=== PATIENT | female | born 1955 | race Caucasian/White ===

== ENCOUNTER 2017-05-24 19:51 | Emergency (ER) | payer SELFPAY ==
[2017-05-24 20:00] VITALS: TEMP 97.6; BMI 23.8
--- NOTE | 2017-05-24 20:00 | PDOC ---
Rapid Medical Evaluation Chief Complaint: Nausea/Vomiting Time Seen by Provider: 05/24/17 19:59 Medical Evaluation: Allergies Allergy/AdvReac Type Severity Reaction Status Date / Time No Known Allergies Allergy Verified 07/18/15 18:10 05/24/17 19:59 62yo Female patient presented to ED by family c/o headache, vomiting, chills that began today. Family report no other complaints at this time.
[2017-05-24] MEDS ORDERED: ACETAMINOPHEN 500 MG TABLET (FP) PO ONE (20:38)
[2017-05-24] MEDS ORDERED: SODIUM CHLORIDE 0.9% 500 ML INFUS.BAG IV ONE (20:38)
--- NOTE | 2017-05-24 20:41 | PDOC ---
History of Present Illness - General History Source: Patient Exam Limitations: No Limitations - History of Present Illness Initial Comments: 05/24/17 22:18 Patient is a 62 year old female with a significant past medical history of hypothyroidism who presents to the ED with complaints of headache that began this afternoon. Patient reports experiencing headache this afternoon suddenly while home showing no signs of subsiding. She reports experiencing intermittent fever and chills that began today at 5 pm. Patient reports not taken any medication for pain. As per patient's family, patient experienced 4 episodes of vomiting since this morning. Denies nausea, vomiting. Denies chest pain, SOB. Denies contact with sick individuals, out of state travels. Denies any other symptoms. Allergies: None Social history: No smoking. No alcohol. No illicit drugs. Surgical history: None PMD: None <Kerwin Rodriguez - Last Filed: 05/24/17 22:18> <Belkys Toussaint - Last Filed: 05/24/17 22:38> - General Chief Complaint: Nausea/Vomiting Stated Complaint: FEVER Time Seen by Provider: 05/24/17 19:59 Past History <Kerwin Rodriguez - Last Filed: 05/24/17 22:18> - Past Medical History CVA: Yes (H/O LACUNAR INFARCT) - Suicide/Smoking/Psychosocial Hx Smoking Status: No Smoking History: Never smoked Number of Cigarettes Smoked Daily: 0 Hx Alcohol Use: No Drug/Substance Use Hx: No <Belkys Toussaint - Last Filed: 05/24/17 22:38> - Past Medical History Allergies/Adverse Reactions: Allergies Allergy/AdvReac Type Severity Reaction Status Date / Time No Known Allergies Allergy Verified 05/24/17 22:00 Home Medications: Ambulatory Orders Levothyroxine [Synthroid -] 50 mcg PO DAILY@0700 #0 tablet 07/10/12 Pantoprazole Sodium [Protonix -] 40 mg PO DAILY #0 tablet.ec 07/10/12 Acetaminophen [Tylenol] 650 mg PO Q4H PRN 05/24/17 Ibuprofen [Motrin -] 600 mg PO TID PRN 05/24/17 Review of Systems - Review of Systems Able to Perform ROS?: Yes Comments:: 05/24/17 22:18 ADULT ROS GENERAL/CONSTITUTIONAL: +Headache. +Fever. +Chills. No weakness. HEAD, EYES, EARS, NOSE AND THROAT: No change in vision. No ear pain or discharge. No sore throat. CARDIOVASCULAR: No chest pain or shortness of breath. RESPIRATORY: No cough, wheezing, or hemoptysis. GASTROINTESTINAL: +Vomiting. No nausea, diarrhea or constipation. GENITOURINARY: No dysuria, frequency, or change in urination. MUSCULOSKELETAL: No joint or muscle swelling or pain. No neck or back pain. SKIN: No rash NEUROLOGIC: +Headache. No vertigo, loss of consciousness, or change in strength/sensation. ENDOCRINE: No increased thirst. No abnormal weight change. HEMATOLOGIC/LYMPHATIC: No anemia, easy bleeding, or history of blood clots. ALLERGIC/IMMUNOLOGIC: No hives or skin allergy. All Other Systems: Reviewed and Negative <Kerwin Rodriguez - Last Filed: 05/24/17 22:18> *Physical Exam - Vital Signs Last Vital Signs Temp Pulse Resp BP Pulse Ox 97.6 F 67 18 130/60 99 05/24/17 19:57 05/24/17 19:57 05/24/17 19:57 05/24/17 19:57 05/24/17 19:57 - Physical Exam Comments: 05/24/17 22:19 GENERAL: Awake, alert, and fully oriented, in no acute distress HEAD: No signs of trauma EYES: +injected eyes. PERRLA, EOMI, sclera anicteric, ENT: Auricles normal inspection, hearing grossly normal, nares patent, oropharynx clear without exudates. Moist mucosa NECK: Normal ROM, supple, no lymphadenopathy, JVD, or masses LUNGS: +Wheezing at top of right side. Breath sounds equal, clear to auscultation bilaterally. No wheezes, and no crackles HEART: Regular rate and rhythm, normal S1 and S2, no murmurs, rubs or gallops ABDOMEN: +Superpubic pain. +Right flank pain. Soft, nontender, normoactive bowel sounds. No guarding, no rebound. No masses EXTREMITIES: Normal range of motion, no edema. No clubbing or cyanosis. No cords, erythema, or tenderness NEUROLOGICAL: Cranial nerves II through XII grossly intact. Normal speech, normal gait SKIN: Warm, Dry, normal turgor, no rashes or lesions noted. <Kerwin Rodriguez - Last Filed: 05/24/17 22:18> - Vital Signs Last Vital Signs Temp Pulse Resp BP Pulse Ox 97.6 F 67 18 130/60 99 05/24/17 19:57 05/24/17 19:57 05/24/17 19:57 05/24/17 19:57 05/24/17 19:57 <Belkys Toussaint - Last Filed: 05/24/17 22:38> ED Treatment Course - LABORATORY CBC & Chemistry Diagram: 05/24/17 20:44 05/24/17 20:44 - ADDITIONAL ORDERS Additional order review: Laboratory Results 05/24/17 20:44 Sodium 139 Potassium 3.5 Chloride 103 Carbon Dioxide 30 Anion Gap 6 L BUN 11 Creatinine 0.7 Creat Clearance w eGFR > 60 Random Glucose 96 Calcium 8.5 Total Bilirubin 0.4 D AST 34 D ALT 21 D Alkaline Phosphatase 67 Total Protein 7.1 Albumin 3.6 TSH 1.43 05/24/17 20:44 RBC 4.05 MCV 88.5 MCHC 34.4 RDW 13.5 MPV 7.0 L Neutrophils % 38.9 L D Lymphocytes % 49.1 H D Monocytes % 5.7 Eosinophils % 5.1 H D Basophils % 1.2 - Medications Given in the ED: ED Medications Discontinued Medications Generic Name Dose Route Start Last Admin Trade Name Ana PRN Reason Stop Dose Admin Acetaminophen 1,000 mg 05/24/17 20:38 05/24/17 21:23 Tylenol - PO 05/24/17 20:39 Not Given ONCE ONE Acetaminophen 1,000 mg 05/24/17 21:05 05/24/17 21:07 Ofirmev Injection - IVPB 05/24/17 21:06 1,000 mg ONCE ONE Administration Sodium Chloride 1,000 ml 05/24/17 20:38 05/24/17 21:03 Normal Saline - IV 05/24/17 20:39 1,000 ml ONCE ONE Administration <Kerwin Rodriguez - Last Filed: 05/24/17 22:18> - LABORATORY CBC & Chemistry Diagram: 05/24/17 20:44 05/24/17 20:44 - RADIOLOGY Radiology Studies Ordered: Category Date Time Status CHEST PA & LAT [RAD] Stat Radiology 05/24/17 20:39 Ordered <Belkys Toussaint - Last Filed: 05/24/17 22:38> Medical Decision Making - Medical Decision Making 05/24/17 22:[address] and nausea and vomiting x 4. No fever, Pt still has LANE; she has no neuro findings. She has taken nothing for the pain at home. Here she was hydrated and given tylenol and she is feeling better. 05/24/17 22:36 Tommy is feeling better and she is ready for discharge. Her headache has completely resolved with tylenol. She states that her vomiting may have been due to something she ate in the home. She states taht all family members eat their own food and that it is possible that she was food poisoned from a left over that she ate. Pt has no fever and no chills and all her labs are normal. 05/24/17 22:37 EKG same pattern as old <Belkys Toussaint - Last Filed: 05/24/17 22:38> *DC/Admit/Observation/Transfer - Attestations Scribe Attestion: 05/24/17 22:19 Documentation prepared by Kerwin Rodriguez, acting as senior medical writer for Belkys Toussaint MD/DO. <Kerwin Rodriguez - Last Filed: 05/24/17 22:18> - Discharge Dispostion Admit: No <Belkys Toussaint - Last Filed: 05/24/17 22:38> Diagnosis at time of Disposition: Nausea and vomiting, Headache, Gastroenteritis - Discharge Dispostion Disposition: HOME Condition at time of disposition: Stable - Patient Instructions Printed Discharge Instructions: DI for Vomiting -- Adult, DI for Headache
[2017-05-24] MEDS ORDERED: ACETAMINOPHEN INJECTION 100 ML IVPB ONE (20:56)
[2017-05-24 21:01] LABS: BASO % 1.2 % (0-2.0); EOS % 5.1 % (0-4.5); HEMATOCRIT 35.8 % (32.4-45.2); HEMOGLOBIN 12.3 GM/dL (10.7-15.3); LYMPH % 49.1 % (8-40); MCH 30.4 pg (25.7-33.7); MCHC 34.4 g/dl (32.0-36.0); MEAN CELL VOLUME 88.5 fl (80-96); MONO % 5.7 % (3.8-10.2); NEUT % 38.9 % (42.8-82.8); PLATELET COUNT 202 K/MM3 (134-434); RBC 4.05 M/mm3 (3.60-5.2); RDW 13.5 % (11.6-15.6); WHITE BLOOD COUNT 4.2 K/mm3 (4.0-10.0)
[2017-05-24] MEDS ORDERED: ACETAMINOPHEN 1000 MG/100 ML VIAL (NON FORMULARY) IVPB ONE (21:05)
[2017-05-24 21:39] LABS: ALBUMIN 3.6 g/dl (3.4-5.0); ANION GAP 6 (8-16); BILIRUBIN,TOTAL 0.4 mg/dL (0.2-1.0); BLOOD UREA NITROGEN 11 mg/dL (7-18); CALCIUM 8.5 mg/dL (8.5-10.1); CHLORIDE 103 mmol/L (98-107); CO2 30 mmol/L (21-32); CREATININE 0.7 mg/dL (0.55-1.02); GLUCOSE,RANDOM 96 mg/dL (74-106); POTASSIUM 3.5 mmol/L (3.5-5.1); SGOT/AST 34 U/L (15-37); SGPT/ALT 21 U/L (12-78); SODIUM 139 mmol/L (136-145); TOT PROT 7.1 g/dl (6.4-8.2)
[2017-05-24 21:47] LABS: ALK PHOS 67 U/L (45-117)
[2017-05-24 22:43] VITALS: BP 149/67; PULSE 66
[2017-05-24 23:16] LABS: URINE APPEARANCE CLEAR; URINE BILIRUBIN NEGATIVE (NEGATIVE); URINE BLOOD 2+ (NEGATIVE); URINE COLOR LTYELLOW; URINE GLUCOSE (UA) NEGATIVE (NEGATIVE); URINE KETONE NEGATIVE (NEGATIVE); URINE NITRITE NEGATIVE (NEGATIVE); URINE PROTEIN NEGATIVE (NEGATIVE); URINE UROBILINOGEN NEGATIVE mg/dL (0.2-1.0)
[2017-05-24 23:46] LABS: URINE LEUK ESTERASE 2+ (NEGATIVE)
[2017-05-25 00:28] LABS: EPI CELLS FEW /HPF (FEW); URINE MUCUS RARE
--- NOTE | 2017-05-25 16:48 | EKG ---
Test Reason : Blood Pressure : / mmHG Vent. Rate : 064 BPM Atrial Rate : 064 BPM P-R Int : 198 ms QRS Dur : 100 ms QT Int : 494 ms P-R-T Axes : 064 074 007 degrees QTc Int : 509 ms NORMAL SINUS RHYTHM INCOMPLETE RIGHT BUNDLE BRANCH BLOCK PROLONGED QT NONSPECIFIC T WAVE ABNORMALITY ABNORMAL ECG WHEN COMPARED WITH ECG OF 05-JUL-2012 11:46, NO SIGNIFICANT CHANGE WAS FOUND Confirmed by ALLA ANDRADE MD ([id number]) on 05/25/2017 4:48:24 PM Referred By: Confirmed By:ALLA ANDRADE MD
== END 2017-05-24 22:43 | disposition home or self-care (01) ==
LOC: JER 19:51
PROC: 3E033NZ Introduction of Analgesics, Hypnotics, Sedatives into Peripheral Vein, Percutaneous Approach (ICD-10-PCS; principal; 2017-05-24)
DX: K52.9 Noninfective gastroenteritis and colitis, unspecified (principal)
CPT/HCPCS: 36415; 71046-TC; 80053; 81003; 81015; 84443; 85025; 87086; 93005; 93010; 99283-25

== ENCOUNTER 2017-10-08 16:22 | Inpatient (IN) | payer OTHER ==
[2017-10-08] MEDS ORDERED: SODIUM CHLORIDE 0.9% 1000 ML INFUS.BAG IV ONE (16:25)
[2017-10-08 16:30] VITALS: BMI 23.1
--- NOTE | 2017-10-08 16:34 | PDOC ---
Rapid Medical Evaluation Time Seen by Provider: 10/08/17 16:23 Medical Evaluation: Allergies Allergy/AdvReac Type Severity Reaction Status Date / Time No Known Allergies Allergy Verified 05/24/17 22:00 10/08/17 16:34 Pt. is a 62 y/o F who presents altered with her family. Son carried her in to the ED. Not answering questions. States that she may have the flu as she was out in the rain. Was normal yesterday. Exam: wheel chair bound, AAOx0. CTAB. Warm to the touch. BP 70/40 Orders: Sepsis order set Pt. to proceed to main ED for further evaluation
[2017-10-08] MEDS ORDERED: ACETAMINOPHEN INJECTION 100 ML IVPB ONE (16:40)
--- NOTE | 2017-10-08 16:40 | PDOC ---
Attending Attestation - Resident Resident Name: Mike Rangel - HPI HPI: 10/08/17 17:53 Pt presents to the ED after found febrile and minimally responsive by her son. As far as he can tell, she was in her usual state of health yesterday night. He did not see her at all today until shortly before admision. Patient has a history of thyroid problems--her son is unsure whether she has hyper or hypothyroidism. 10/08/17 17:54 - Physicial Exam PE: 10/08/17 17:58 Agree with resident exam. Patient is hypotensive, mildly hypoxic and lethargic. She will open her eyes and state her name in response to sternal rub. Abdomen is non distended and lungs are clear. - Critical Care Time Total Critical Care Time: 45 Critical Care Statement: The care of this patient involved high complexity decision making to prevent further life threatening deterioration of the patient 's condition and/or to evaluate & treat vital organ system(s) failure or risk of failure. - Medical Decision Making 10/08/17 17:59 Pt presents to the ED in septic shock. Large bore IV access and agressive hydration inititated immediately after arrival. FEbrile to 104.5--treated with IV tylenol and broad spectrum antibiotics. Shortly after
[2017-10-08] MEDS ORDERED: ACETAMINOPHEN 1000 MG/100 ML VIAL (NON FORMULARY) IVPB ONE (16:44)
[2017-10-08] MEDS ORDERED: SODIUM CHLORIDE 1,000 ML IV STA ×2 (16:44→17:39)
[2017-10-08 16:50] LABS: EOS % 0.8 % (0-4.5); HEMATOCRIT 42.4 % (32.4-45.2); HEMOGLOBIN 14.3 GM/dL (10.7-15.3); LYMPH % 28.5 % (8-40); MCH 30.1 pg (25.7-33.7); MCHC 33.7 g/dl (32.0-36.0); MEAN CELL VOLUME 89.2 fl (80-96); MEAN PLT VOLUME 7.5 fl (7.5-11.1); MONO % 6.8 % (3.8-10.2); NEUT % 62.9 % (42.8-82.8); PLATELET COUNT 266 K/MM3 (134-434); RBC 4.75 M/mm3 (3.60-5.2); RDW 13.6 % (11.6-15.6)
[2017-10-08] MEDS ORDERED: VANCOMYCIN 1,000 MG in DEXTROSE 5%-WATER - 250 ML IVPB ONE (16:51)
[2017-10-08] MEDS ORDERED: PIPERACILLIN/TAZOB 3.375 GM 3.375 GM in DEXTROSE 5%-WATER - 50 ML IVPB ONE (16:51)
[2017-10-08 16:53] LABS: VENOUS PC02 44.2 mmHg (38-52); VENOUS PH 7.35 (7.32-7.42); VENOUS PO2 34.9 mmHg (28-48)
--- NOTE | 2017-10-08 16:57 | PDOC ---
History of Present Illness - General Chief Complaint: SIRS, Suspected/Possible Stated Complaint: FEVER Time Seen by Provider: 10/08/17 16:23 - History of Present Illness Initial Comments: 10/08/17 16:56 Ms. Sanders is a 62 yo female w/ pmh of hypothyroidism who presents for evaluation of non-responsiveness and fever. Per son who is with her she was largely non-responsive when he went to check on her and extremely sweaty. She will not currently respond. Per son she was at baseline when she went to bed last night. Allergies: NKDA Past History - Past Medical History Allergies/Adverse Reactions: Allergies Allergy/AdvReac Type Severity Reaction Status Date / Time No Known Allergies Allergy Verified 10/08/17 17:24 Home Medications: Ambulatory Orders Levothyroxine [Synthroid -] 50 mcg PO DAILY@0700 #0 tablet 07/10/12 Pantoprazole Sodium [Protonix -] 40 mg PO DAILY #0 tablet.ec 07/10/12 Acetaminophen [Tylenol] 650 mg PO Q4H PRN 05/24/17 Ibuprofen [Motrin -] 600 mg PO TID PRN 05/24/17 CVA: Yes (H/O LACUNAR INFARCT) COPD: No Thyroid Disease: Yes - Suicide/Smoking/Psychosocial Hx Smoking Status: No Smoking History: Never smoked Number of Cigarettes Smoked Daily: 0 Information on smoking cessation initiated: No Hx Alcohol Use: No Drug/Substance Use Hx: No Substance Use Type: None Review of Systems - Review of Systems Comments:: 10/08/17 16:57 Unable to obtain ROS further. *Physical Exam - Vital Signs Last Vital Signs Temp Pulse Resp BP Pulse Ox 119 H 16 70/40 93 L 10/08/17 16:25 10/08/17 16:25 10/08/17 16:25 10/08/17 16:25 - Physical Exam Comments: 10/08/17 16:57 GENERAL: +Patient minimally responsive to stimulation. HEAD: No signs of trauma, normocephalic, atraumatic EYES: PERRLA, EOMI, sclera anicteric, conjunctiva clear ENT: Auricles normal inspection, hearing grossly normal, nares patent, oropharynx clear without exudates. Moist mucosa NECK: Normal ROM, supple, no lymphadenopathy, JVD, or masses LUNGS: No distress, speaks full sentences, clear to auscultation bilaterally HEART: Regular rate and rhythm, normal S1 and S2, no murmurs, rubs or gallops, peripheral pulses normal and equal bilaterally. ABDOMEN: Soft, nontender, normoactive bowel sounds. No guarding, no rebound. No masses EXTREMITIES: Normal inspection, Normal range of motion, no edema. No clubbing or cyanosis. NEUROLOGICAL: +Unable to assess SKIN: +Hot, diaphoretic, normal turgor, no rashes or lesions noted. ED Treatment Course - LABORATORY CBC & Chemistry Diagram: 10/08/17 16:40 10/08/17 16:40 Medical Decision Making - Medical Decision Making 10/08/17 18:48 Ms. Sanders is a 62 yo female w/ pmh as described who presents in acute sepsis. Sepsis protocol started. Central line placed for persistant hypotension after 4L NS. Patient signed out to Dr. Solano for further care. *DC/Admit/Observation/Transfer Diagnosis at time of Disposition: Septic shock - Discharge Dispostion Decision to Admit order: Yes - Referrals - Patient Instructions - Post Discharge Activity
[2017-10-08 17:01] LABS: URINE APPEARANCE SLCLOUDY; URINE BILIRUBIN NEGATIVE (<2.0 mg/dL); URINE BLOOD 3+ (NEGATIVE); URINE COLOR YELLOW; URINE GLUCOSE (UA) NEGATIVE (NEGATIVE); URINE KETONE NEGATIVE (NEGATIVE); URINE LEUK ESTERASE NEGATIVE (NEGATIVE); URINE NITRITE NEGATIVE (NEGATIVE); URINE UROBILINOGEN NEGATIVE mg/dL (0.2-1.0)
[2017-10-08] MEDS ORDERED: VANCOMYCIN 1 GRAM (PRE-DOCKED) 1,000 MG/250 ML BAG IVPB ONE (17:01)
[2017-10-08] MEDS ORDERED: PIPERACILLIN/TAZOB 3.375 GM 3.375 GM/50 ML BAG IVPB ONE (17:02)
[2017-10-08 17:04] LABS: INR 1.23 (0.82-1.09); PROTHROMBIN TIME (PATIENT) 13.9 SEC (9.7-13.0)
[2017-10-08 17:06] LABS: ACTIVATED PTT 48.3 SECONDS (26.9-34.4)
[2017-10-08 17:10] LABS: URINE PROTEIN 2+ (NEGATIVE)
[2017-10-08 17:12] LABS: URINE BACTERIA RARE /hpf (NONE SEEN)
[2017-10-08 17:14] LABS: ALBUMIN 3.9 g/dl (3.4-5.0); ALK PHOS 86 U/L (45-117); ANION GAP 10 (8-16); BILIRUBIN,TOTAL 0.8 mg/dL (0.2-1.0); BLOOD UREA NITROGEN 13 mg/dL (7-18); CALCIUM 8.6 mg/dL (8.5-10.1); CHLORIDE 100 mmol/L (98-107); CO2 24 mmol/L (21-32); CREATININE 1.3 mg/dL (0.55-1.02); GLUCOSE,RANDOM 120 mg/dL (74-106); SGPT/ALT 21 U/L (12-78); SODIUM 134 mmol/L (136-145)
[2017-10-08] MEDS ORDERED: DOPAMINE 400 MG/D5W - 400,000 MCG/250 ML INFUS.BAG IVPB ONE (17:29)
[2017-10-08] MEDS ORDERED: DOPAMINE 400 MG/D5W - 400,000 MCG/250 ML INFUS.BAG IVPB SCH (17:30)
[2017-10-08 17:41] LABS: POTASSIUM 3.9 mmol/L (3.5-5.1); SGOT/AST 53 U/L (15-37)
[2017-10-08] MEDS ORDERED: NOREPINEPHRINE BITARTRATE 4 MG/4 ML ML IV ONE (18:28)
[2017-10-08] MEDS: NOREPINEPHRINE BITARTRATE 4,000 MCG in DEXTROSE 5%-WATER - 496 ML IV SCH (18:55)
[2017-10-08] MEDS ORDERED: CEFTRIAXONE 2,000 MG in DEXTROSE 5%-WATER - 50 ML IVPB ONE (19:02)
[2017-10-08] MEDS ORDERED: NOREPINEPHRINE BITARTRATE 8,000 MCG in SODIUM CHLORIDE 0.45% 992 ML IV SCH (19:15)
--- NOTE | 2017-10-08 19:22 | PN ---
Teaching Attending Note Name of Resident: Jak Carvajal ATTENDING PHYSICIAN STATEMENT I saw and evaluated the patient. I reviewed the resident's note and discussed the case with the resident. I agree with the resident's findings and plan as documented. SUBJECTIVE: Ms. Sanders is a 62 year woman with pmh of hypothyroidism and lacunar infarct CVA who presents for evaluation of non-responsiveness and fever. As per son who is with her she was largely non-responsive when he went to check on her and extremely sweaty. In the ER she was hypotensive and febrile and was treated as a case of septic shock. She got IV NS, was started on levophed and sent to the ICU. There was a slight improvement in her mentation and her BP has improved. OBJECTIVE: Lethargic but arousable. Vital Signs Period Temp Pulse Resp BP Sys/Rios Pulse Ox Last 24 Hr 99.4 F-104.5 F 88-119 16-24 61-105/27-44 93-100 HEENT: No Jaundice, eye redness or discharge, PERRLA, EOMI. Normocephalic, atraumatic. External ears are normal and hearing is grossly intact. No nasal discharge. Neck: Supple, nontender. No palpable adenopathy or thyromegaly. No JVD Chest: Good effort. Clear to auscultation and percussion. Heart: Regular. No S3, rub or murmur Abdomen: Not distended, soft, nontender and no HSM. No rebound or guarding. Normoactive bowel sounds. Ext: Peripheral pulses intact. No leg edema. Skin: Warm and dry. No petechiae, rash or ecchymosis. Neuro: Lethargic but arousable. Unable to follow commands. Sensation grossly intact in all four extremities and DTR are symmetric. Home Medications Medication Instructions Recorded Levothyroxine [Synthroid -] 50 mcg PO DAILY@0700 #0 tablet 07/10/12 Pantoprazole Sodium [Protonix -] 40 mg PO DAILY #0 tablet.ec 07/10/12 Acetaminophen [Tylenol] 650 mg PO Q4H PRN 05/24/17 Ibuprofen [Motrin -] 600 mg PO TID PRN 05/24/17 Current Medications Generic Name Dose Route Start Last Admin Trade Name Freq PRN Reason Stop Dose Admin Dopamine HCl/Dextrose 400,000 mcg in 250 mls @ 8.165 mls/hr 10/08/17 17:30 19:05 Dopamine 400 Mg/D5w - IVPB 0 mcg/kg/min TITR RYAN 0 mls/hr Titration Protocol 5 MCG/KG/MIN Ceftriaxone Sodium 2,000 mg/ 50 mls @ 100 mls/hr 10/08/17 19:02 Dextrose IVPB 10/08/17 19:31 ONCE ONE Norepinephrine Bitartrate 4, 500 mls @ 37.5 mls/hr 10/08/17 19:15 10/08/17 18 :55 000 mcg/ Dextrose IV 8 mcg/min TITR RYAN 60 mls/hr Administration Protocol 5 MCG/MIN Abnormal Lab Results 10/08/17 10/08/17 10/08/17 16:40 16:40 16:40 PT with INR 13.90 H INR 1.23 H PTT (Actin FS) 48.3 H Sodium 134 L Creatinine 1.3 H Random Glucose 120 H Lactic Acid 2.4 H* AST 53 H Troponin I Urine Protein Urine Blood 10/08/17 10/08/17 16:40 16:48 PT with INR INR PTT (Actin FS) Sodium Creatinine Random Glucose Lactic Acid AST Troponin I 0.17 H Urine Protein 2+ H Urine Blood 3+ H Current Medications Generic Name Dose Route Start Last Admin Trade Name Eitanq PRN Reason Stop Dose Admin Acetaminophen 650 mg 10/08/17 20:15 Tylenol - PO Q4H PRN FEVER Chlorhexidine Gluconate 1 applic 10/08/17 22:00 Hibiclens For Decolonization - TP HS RYAN Heparin Sodium (Porcine) 5,000 unit 10/09/17 02:00 Heparin - SQ Q8H-IV RYAN Dopamine HCl/Dextrose 400,000 mcg in 250 mls @ 8.165 mls/hr 10/08/17 17:30 19:05 Dopamine 400 Mg/D5w - IVPB 0 mcg/kg/min TITR RYAN 0 mls/hr Titration Protocol 5 MCG/KG/MIN Norepinephrine Bitartrate 4, 500 mls @ 37.5 mls/hr 10/08/17 19:15 10/08/17 20 :15 000 mcg/ Dextrose IV 10 mcg/min TITR RYAN 75 mls/hr Titration Protocol 5 MCG/MIN Sodium Chloride 1,000 mls @ 125 mls/hr 10/08/17 20:00 Normal Saline - IV ASDIR RYAN Ceftriaxone Sodium 2 gm in 50 mls @ 100 mls/hr 10/08/17 20:15 Ceftriaxone 2 Gm-D5w Bag IVPB Q12H RYAN Protocol Vancomycin HCl 1,000 mg/ 250 mls @ 166.667 mls/hr 10/08/17 20:15 Dextrose IVPB Q12H RYAN Protocol Ampicillin Sodium 2 gm/ Sodium 100 mls @ 200 mls/hr 10/08/17 21:00 Chloride IVPB Q6H-IV RYAN Protocol Vancomycin HCl 1,000 mg/ 250 mls @ 166.667 mls/hr 10/09/17 05:00 Dextrose IVPB 10/09/17 06:29 ONCE ONE Levothyroxine Sodium 50 mcg 10/09/17 07:00 Synthroid - PO DAILY@0700 [facility] Mupirocin 1 applic 10/08/17 22:00 Bactroban Ointment (For Decolonization) - NS 10/13/17 21:59 BID [facility] Pantoprazole Sodium 40 mg 10/09/17 10:00 Protonix - PO DAILY [facility] ASSESSMENT AND PLAN: 1. Septic shock - Patient is being admitted as an inpatient. Will get head CT scan and spinal tap to rule out meningitis. There is no other obvious source of infection. Will continue IV NS for BP support and mild ADIS, monitor lactic acid and commence empiric treatment for meningitis with Vancomycin, Ampicilin and Rocephin pending results of sepsis work up. Check urine toxicology screen. There is also the possibility that she has heat stroke which will be addressed with continued IV fluid support and monitor CPK/Temp. Elevated troponin likely due to demand ischemia. No EKG changes suggestive of ACS. 2. DVT prophylaxis - Heparin 5000u sq tid 3. Advance directives - Full code
[2017-10-08] MEDS ORDERED: VANCOMYCIN 1,000 MG in DEXTROSE 5%-WATER - 250 ML IVPB SCH (20:15)
[2017-10-08] MEDS ORDERED: CEFTRIAXONE 2 GM-D5W BAG 2 GM/50 ML BAG IVPB SCH (20:15)
--- NOTE | 2017-10-08 20:21 | HP ---
CHIEF COMPLAINT: fever, unresponsive HISTORY OF PRESENT ILLNESS: 62 year old female with a hx of hypothyroidism brought to ED by son after he found her unresponsive and febrile in their room. Patient's son provides the history. States that his mother lives with him, and earlier today he found her in her room not responding to commands and that she felt very hot to touch. He reports that prior to this, his mother was at baseline walking, talking, eating without any complaints. He states that this has happened to her once before around 7-8 years ago when she was hospitalized for low blood pressure, fever, and was told that she had a "high sodium level". During that admission, he reports that his mother had a lumbar puncture but is not sure what the results were. States that she looked similar during that admission to how she looks today. He reports that she was not sick recently or been around sick contacts. She has not traveled anywhere and is not currently employed. Denies chest pain, shortness of breath, nausea, vomiting, diarrhea, or dysuria. Upon questioning, the patient herself responded to some commands and stated that she is tired and has pain all over her body. ER course was notable for: (1) BP 70/40 (2) T 104.5 (3) HR 119 (4) LA 2.4 --> 1.6 (5) Trop 0.17 Recent Travel: none PAST MEDICAL HISTORY: hypothyroidism PAST SURGICAL HISTORY: C section many years ago Social History: Smoking: never Alcohol: never Drugs: never Allergies No Known Allergies Allergy (Verified 10/08/17 17:24) HOME MEDICATIONS: Home Medications Medication Instructions Recorded Levothyroxine [Synthroid -] 50 mcg PO DAILY@0700 #0 tablet 07/10/12 Pantoprazole Sodium [Protonix -] 40 mg PO DAILY #0 tablet.ec 07/10/12 Acetaminophen [Tylenol] 650 mg PO Q4H PRN 05/24/17 Ibuprofen [Motrin -] 600 mg PO TID PRN 05/24/17 REVIEW OF SYSTEMS CONSTITUTIONAL: fever, chills, diaphoresis, generalized weakness, malaise Absent: loss of appetite, weight change HEENT: Absent: rhinorrhea, nasal congestion, throat pain, throat swelling, difficulty swallowing, mouth swelling, ear pain, eye pain, visual changes CARDIOVASCULAR: Absent: chest pain, syncope, palpitations, irregular heart rate, lightheadedness , peripheral edema RESPIRATORY: Absent: cough, shortness of breath, dyspnea with exertion, orthopnea, wheezing, stridor, hemoptysis GASTROINTESTINAL: Absent: abdominal pain, abdominal distension, nausea, vomiting, diarrhea, constipation, melena, hematochezia GENITOURINARY: Absent: dysuria, frequency, urgency, hesitancy, hematuria, flank pain, genital pain MUSCULOSKELETAL: Absent: myalgia, arthralgia, joint swelling, back pain, neck pain SKIN: Absent: rash, itching, pallor HEMATOLOGIC/IMMUNOLOGIC: Absent: easy bleeding, easy bruising, lymphadenopathy, frequent infections ENDOCRINE: Absent: unexplained weight gain, unexplained weight loss, heat intolerance, cold intolerance NEUROLOGIC: headache Absent:focal weakness or paresthesias, dizziness, unsteady gait, seizure, mental status changes, bladder or bowel incontinence PSYCHIATRIC: Absent: anxiety, depression, suicidal or homicidal ideation, hallucinations. PHYSICAL EXAMINATION Vital Signs - 24 hr 10/08/17 10/08/17 10/08/17 16:25 16:30 16:45 Temperature 104.5 F H Pulse Rate 119 H Pulse Rate [ 107 H Apical] Respiratory 16 22 Rate Blood Pressure 70/40 Blood Pressure 105/44 [Left Arm] O2 Sat by Pulse 93 L 100 Oximetry (%) 10/08/17 10/08/17 10/08/17 16:59 17:37 18:06 Temperature 104.5 F H Pulse Rate 91 H Pulse Rate [ 100 H Apical] Respiratory Rate Blood Pressure 61/30 Blood Pressure 66/27 [Left Arm] O2 Sat by Pulse 100 Oximetry (%) 10/08/17 10/08/17 10/08/17 18:07 18:17 18:39 Temperature Pulse Rate 100 H 98 H Pulse Rate [ 88 Apical] Respiratory 24 Rate Blood Pressure 66/27 79/31 Blood Pressure 91/33 [Left Arm] O2 Sat by Pulse 100 Oximetry (%) 10/08/17 10/08/17 10/08/17 18:55 18:57 19:05 Temperature 99.4 F Pulse Rate 88 88 Pulse Rate [ 88 Apical] Respiratory 22 Rate Blood Pressure 91/43 91/43 Blood Pressure 91/43 [Left Arm] O2 Sat by Pulse 100 Oximetry (%) GENERAL: A&Ox1, patient obtunded but is responding to simple commands EYES: PERRLA, EOMI ENT: Moist mucus membranes NECK: No JVD LUNGS: CTA, no wheezes HEART: tachycardic, no murmurs ABDOMEN: Soft, BS present, + suprapubic tenderness MUSCULOSKELETAL: No CVA Tenderness EXTREMITIES: 2+ pulses, no edema. NEUROLOGICAL: Patient has 5/5 motor strength Laboratory Results - last 24 hr 10/08/17 10/08/17 10/08/17 16:40 16:40 16:40 WBC 8.0 D RBC 4.75 Hgb 14.3 D Hct 42.4 D MCV 89.2 MCH 30.1 MCHC 33.7 RDW 13.6 Plt Count 266 D MPV 7.5 Neutrophils % 62.9 D Lymphocytes % 28.5 D Monocytes % 6.8 Eosinophils % 0.8 D Basophils % 1.0 Nucleated RBC % 0 PT with INR 13.90 H INR 1.23 H PTT (Actin FS) 48.3 H VBG pH 7.35 POC VBG pCO2 44.2 POC VBG pO2 34.9 Mixed VBG HCO3 24.0 Sodium Potassium Chloride Carbon Dioxide Anion Gap BUN Creatinine Creat Clearance w eGFR Random Glucose Lactic Acid Calcium Total Bilirubin AST ALT Alkaline Phosphatase Troponin I Total Protein Albumin TSH Urine Color Urine Appearance Urine pH Ur Specific [place] Urine Protein Urine Glucose (UA) Urine Ketones Urine Blood Urine Nitrite Urine Bilirubin Urine Urobilinogen Ur Leukocyte Esterase Urine WBC (Auto) Urine RBC (Auto) Urine Bacteria 10/08/17 10/08/17 10/08/17 16:40 16:40 16:40 WBC RBC Hgb Hct MCV MCH MCHC RDW Plt Count MPV Neutrophils % Lymphocytes % Monocytes % Eosinophils % Basophils % Nucleated RBC % PT with INR INR PTT (Actin FS) VBG pH POC VBG pCO2 POC VBG pO2 Mixed VBG HCO3 Sodium 134 L Potassium 3.9 Chloride 100 Carbon Dioxide 24 Anion Gap 10 BUN 13 Creatinine 1.3 H Creat Clearance w eGFR 41.24 Random Glucose 120 H Lactic Acid 2.4 H* Calcium 8.6 Total Bilirubin 0.8 D AST 53 H ALT 21 Alkaline Phosphatase 86 Troponin I 0.17 H Total Protein 8.0 Albumin 3.9 TSH Urine Color Urine Appearance Urine pH Ur Specific [place] Urine Protein Urine Glucose (UA) Urine Ketones Urine Blood Urine Nitrite Urine Bilirubin Urine Urobilinogen Ur Leukocyte Esterase Urine WBC (Auto) Urine RBC (Auto) Urine Bacteria 10/08/17 10/08/1710/08/18 16:48 16:59 18:30 WBC RBC Hgb Hct MCV MCH MCHC RDW Plt Count MPV Neutrophils % Lymphocytes % Monocytes % Eosinophils % Basophils % Nucleated RBC % PT with INR INR PTT (Actin FS) VBG pH POC VBG pCO2 POC VBG pO2 Mixed VBG HCO3 Sodium Potassium Chloride Carbon Dioxide Anion Gap BUN Creatinine Creat Clearance w eGFR Random Glucose Lactic Acid 1.6 Calcium Total Bilirubin AST ALT Alkaline Phosphatase Troponin I Total Protein Albumin TSH 1.48 Urine Color Yellow Urine Appearance Slcloudy Urine pH 5.0 Ur Specific [place] 1.012 Urine Protein 2+ H Urine Glucose (UA) Negative Urine Ketones Negative Urine Blood 3+ H Urine Nitrite Negative Urine Bilirubin Negative Urine Urobilinogen Negative Ur Leukocyte Esterase Negative Urine WBC (Auto) 1 Urine RBC (Auto) 44 Urine Bacteria Rare ASSESSMENT/PLAN: 62 year old female with a hx of hypothyroidism is admitted to the hospital for septic shock #Septic Shock: unclear etiology, could be UTI even though UA negative, mentally patient is improving compared to when she first came in -f/u blood cultures -f/u urine cultures -UA negative -ICU admission -ID consult Dr. Bobo appreciated -Levophed at 10mcgs, titrate to MAP > 65 --> improved to 123/94 (MAP 104) and pressures were stopped -Vancomycin 1gm Q12 -Rocephin 2gm Q12 -Ampicillin 2gms Q6h -IV NS @ 125cc/hr -CT head no contrast -CT abdomen pelvis no contrast to r/o abdominal collection/abscess/source of infection -will likely need lumbar puncture and cell analysis/culture -LA elevated on admission 2.4 --> repeat 1.6 -accurate I's and O's -NPO for now -O2 2L #Troponinemia: troponin on admission was 1.23 -likely demand ischemia due to hypotension -repeat troponin at 10pm #Hypothyroidism #FEN IV NS @ 125cc/hr Electrolytes WNL NPO for now #Prophylaxis -heparin prophylaxis #Disposition -admit ICU -initially patient wanted DNR, but he stated he would discuss with family before signing form Visit type - Emergency Visit Emergency Visit: Yes ED Registration Date: 10/08/17 Care time: The patient presented to the Emergency Department on the above date and was hospitalized for further evaluation of their emergent condition. - New Patient This patient is new to me today: Yes Date on this admission: 10/08/17 - Critical Care Critical Care patient: Yes Total Critical Care Time (in minutes): 35 Critical Care Statement: The care of this patient involved high complexity decision making to prevent further life threatening deterioration of the patient 's condition and/or to evaluate & treat vital organ system(s) failure or risk of failure. Hospitalist Screening - Colonoscopy Questionnaire Colonoscopy Questionnaire: Colonoscopy Questionnaire - Patient: 50 - 75 years old and never had a screening colonoscopy: Unknown History of colon or rectal polyps, or CA: Unknown History of IBD, Crohn's disease or UC: Unknown History of abdominal radiation therapy as a child: Unknown - Relative: 1 with colon or rectal CA, or polyps at age 60 or younger: Unknown Colon or rectal CA diagnosed at age 45 or younger: Unknown Multiple relatives with colon or rectal CA: Unknown - Outcome: Screening Result: Negative Screen
[2017-10-08] MEDS: ACETAMINOPHEN 325 MG TABLET (FP) PO PRN (21:56)
--- NOTE | 2017-10-08 22:01 | CONSULT ---
Consultation: REQUESTING PROVIDER:Mingo Curtis ED res CONSULT REQUEST: We have been asked to medically evaluate this patient for septic shock. HISTORY OF PRESENT ILLNESS: 62 year old [place]ican speaking female with pmhx of hypothyroidism and lacunar stroke presented to the ED after her son found her unresponsive around 3 pm today and warm to touch. pt was last seen in her base line status last night around 11 pm when she was cooking. history was taking from son . son denies any recent cold, cough , sore throat or sick contact. no N/V/D/C/ chest pain , abdominal pain or urinary symptoms was reported. son denies any head trauma or fall. pt is not taking any medication and was not seen by doctor for the last 7 years. she lives with her son. PMHx: Hypothyroidism , lacunar stroke PSHx: long time ago FHx: non contributory(appendicities in her mom ) Shx: denies smoking, alcohol or illicit drug use Allergies: NKDA REVIEW OF SYSTEMS: CONSTITUTIONAL: Absent: fever, chills, diaphoresis, generalized weakness, malaise, loss of appetite, weight change HEENT: Absent: rhinorrhea, nasal congestion, throat pain, throat swelling, difficulty swallowing, mouth swelling, ear pain, eye pain, visual changes CARDIOVASCULAR: Absent: chest pain, syncope, palpitations, irregular heart rate, lightheadedness , peripheral edema RESPIRATORY: Absent: cough, shortness of breath, dyspnea with exertion, orthopnea, wheezing, stridor, hemoptysis GASTROINTESTINAL: Absent: abdominal pain, abdominal distension, nausea, vomiting, diarrhea, constipation, melena, hematochezia GENITOURINARY: Absent: dysuria, frequency, urgency, hesitancy, hematuria, flank pain, genital pain MUSCULOSKELETAL: Absent: myalgia, arthralgia, joint swelling, back pain, neck pain SKIN: Absent: rash, itching, pallor HEMATOLOGIC/IMMUNOLOGIC: Absent: easy bleeding, easy bruising, lymphadenopathy, frequent infections ENDOCRINE: Absent: unexplained weight gain, unexplained weight loss, heat intolerance, cold intolerance NEUROLOGIC: Absent: headache, focal weakness or paresthesias, dizziness, unsteady gait, seizure, mental status changes, bladder or bowel incontinence PSYCHIATRIC: Absent: anxiety, depression, suicidal or homicidal ideation, hallucinations. PHYSICAL EXAMINATION Vital Signs - 24 hr 10/08/17 10/08/17 10/08/17 16:25 16:30 16:45 Temperature 104.5 F H Pulse Rate 119 H Pulse Rate [ 107 H Apical] Respiratory 16 22 Rate Blood Pressure 70/40 Blood Pressure 105/44 [Left Arm] O2 Sat by Pulse 93 L 100 Oximetry (%) 10/08/17 10/08/17 10/08/17 16:59 17:37 18:06 Temperature 104.5 F H Pulse Rate 91 H Pulse Rate [ 100 H Apical] Respiratory Rate Blood Pressure 61/30 Blood Pressure 66/27 [Left Arm] O2 Sat by Pulse 100 Oximetry (%) 10/08/17 10/08/17 10/08/17 18:07 18:17 18:39 Temperature Pulse Rate 100 H 98 H Pulse Rate [ 88 Apical] Respiratory 24 Rate Blood Pressure 66/27 79/31 Blood Pressure 91/33 [Left Arm] O2 Sat by Pulse 100 Oximetry (%) 10/08/17 10/08/17 10/08/17 18:55 18:57 19:05 Temperature 99.4 F Pulse Rate 88 88 Pulse Rate [ 88 Apical] Respiratory 22 Rate Blood Pressure 91/43 91/43 Blood Pressure 91/43 [Left Arm] O2 Sat by Pulse 100 Oximetry (%) 10/08/17 20:00 Temperature 98.8 F Pulse Rate Pulse Rate [ 95 H Apical] Respiratory 16 Rate Blood Pressure Blood Pressure 80/34 [Left Arm] O2 Sat by Pulse 97 Oximetry (%) GENERAL: AAOx1 , in NAD , sleepy with generalized fatigue , follow commands HEAD:NC/AT EYES: SIM, EOMI , sclera anicteric, conjunctiva clear. EARS, NOSE, THROAT: Ears normal, nares patent, oropharynx clear without exudates. dry MM NECK: Normal range of motion, supple without lymphadenopathy, JVD, LUNGS: Breath sounds equal, clear to auscultation bilaterally. No wheezes, and no crackles. No accessory muscle use. HEART: Regular rate and rhythm, normal S1 and S2 without murmur, rub or gallop. ABDOMEN: Soft, nontender, not distended, normoactive bowel sounds, no guarding, no rebound, no masses. MUSCULOSKELETAL: No CVA tenderness. UPPER EXTREMITIES: 2+ pulses, warm, well-perfused. No cyanosis. No clubbing. Cap refill <2 seconds. No peripheral edema. LOWER EXTREMITIES: 2+ pulses, warm, well-perfused. No calf tenderness. No peripheral edema. NEUROLOGICAL: Cranial nerves II-XII intact. Normal speech. +5/5 strenth upper and lower ext proximal and distal PSYCHIATRIC: Cooperative. lethargic SKIN: Warm, dry, normal turgor, Laboratory Results - last 24 hr 10/08/17 10/08/17 10/08/17 16:40 16:40 16:40 WBC 8.0 D RBC 4.75 Hgb 14.3 D Hct 42.4 D MCV 89.2 MCH 30.1 MCHC 33.7 RDW 13.6 Plt Count 266 D MPV 7.5 Neutrophils % 62.9 D Lymphocytes % 28.5 D Monocytes % 6.8 Eosinophils % 0.8 D Basophils % 1.0 Nucleated RBC % 0 PT with INR 13.90 H INR 1.23 H PTT (Actin FS) 48.3 H VBG pH 7.35 POC VBG pCO2 44.2 POC VBG pO2 34.9 Mixed VBG HCO3 24.0 Sodium Potassium Chloride Carbon Dioxide Anion Gap BUN Creatinine Creat Clearance w eGFR Random Glucose Lactic Acid Calcium Total Bilirubin AST ALT Alkaline Phosphatase Troponin I Total Protein Albumin TSH Urine Color Urine Appearance Urine pH Ur Specific [place] Urine Protein Urine Glucose (UA) Urine Ketones Urine Blood Urine Nitrite Urine Bilirubin Urine Urobilinogen Ur Leukocyte Esterase Urine WBC (Auto) Urine RBC (Auto) Urine Bacteria 10/08/17 10/08/17 10/08/17 16:40 16:40 16:40 WBC RBC Hgb Hct MCV MCH MCHC RDW Plt Count MPV Neutrophils % Lymphocytes % Monocytes % Eosinophils % Basophils % Nucleated RBC % PT with INR INR PTT (Actin FS) VBG pH POC VBG pCO2 POC VBG pO2 Mixed VBG HCO3 Sodium 134 L Potassium 3.9 Chloride 100 Carbon Dioxide 24 Anion Gap 10 BUN 13 Creatinine 1.3 H Creat Clearance w eGFR 41.24 Random Glucose 120 H Lactic Acid 2.4 H* Calcium 8.6 Total Bilirubin 0.8 D AST 53 H ALT 21 Alkaline Phosphatase 86 Troponin I 0.17 H Total Protein 8.0 Albumin 3.9 TSH Urine Color Urine Appearance Urine pH Ur Specific [place] Urine Protein Urine Glucose (UA) Urine Ketones Urine Blood Urine Nitrite Urine Bilirubin Urine Urobilinogen Ur Leukocyte Esterase Urine WBC (Auto) Urine RBC (Auto) Urine Bacteria 10/08/17 10/08/1718 16:48 16:59 18:30 WBC RBC Hgb Hct MCV MCH MCHC RDW Plt Count MPV Neutrophils % Lymphocytes % Monocytes % Eosinophils % Basophils % Nucleated RBC % PT with INR INR PTT (Actin FS) VBG pH POC VBG pCO2 POC VBG pO2 Mixed VBG HCO3 Sodium Potassium Chloride Carbon Dioxide Anion Gap BUN Creatinine Creat Clearance w eGFR Random Glucose Lactic Acid 1.6 Calcium Total Bilirubin AST ALT Alkaline Phosphatase Troponin I Total Protein Albumin TSH 1.48 Urine Color Yellow Urine Appearance Slcloudy Urine pH 5.0 Ur Specific [place] 1.012 Urine Protein 2+ H Urine Glucose (UA) Negative Urine Ketones Negative Urine Blood 3+ H Urine Nitrite Negative Urine Bilirubin Negative Urine Urobilinogen Negative Ur Leukocyte Esterase Negative Urine WBC (Auto) 1 Urine RBC (Auto) 44 Urine Bacteria Rare Active Medications Generic Name Dose Route Start Last Admin Trade Name Freq PRN Reason Stop Dose Admin Acetaminophen 650 mg 10/08/17 20:15 Tylenol - PO Q4H PRN FEVER Chlorhexidine Gluconate 1 applic 10/08/17 22:00 Hibiclens For Decolonization - TP HS RYAN Heparin Sodium (Porcine) 5,000 unit 10/09/17 02:00 Heparin - SQ Q8H-IV RYAN Dopamine HCl/Dextrose 400,000 mcg in 250 mls @ 8.165 mls/hr 10/08/17 17:30 19:05 Dopamine 400 Mg/D5w - IVPB 0 mcg/kg/min TITR RYAN 0 mls/hr Titration Protocol 5 MCG/KG/MIN Norepinephrine Bitartrate 4, 500 mls @ 37.5 mls/hr 10/08/17 19:15 10/08/17 20 :15 000 mcg/ Dextrose IV 10 mcg/min TITR RYAN 75 mls/hr Titration Protocol 5 MCG/MIN Sodium Chloride 1,000 mls @ 125 mls/hr 10/08/17 20:00 Normal Saline - IV ASDIR RYAN Ceftriaxone Sodium 2 gm in 50 mls @ 100 mls/hr 10/08/17 20:15 Ceftriaxone 2 Gm-D5w Bag IVPB Q12H RYAN Protocol Vancomycin HCl 1,000 mg/ 250 mls @ 166.667 mls/hr 10/08/17 20:15 Dextrose IVPB Q12H RYAN Protocol Ampicillin Sodium 2 gm/ Sodium 100 mls @ 200 mls/hr 10/08/17 21:00 Chloride IVPB Q6H-IV RYAN Protocol Vancomycin HCl 1,000 mg/ 250 mls @ 166.667 mls/hr 10/09/17 05:00 Dextrose IVPB 10/09/17 06:29 ONCE ONE Levothyroxine Sodium 50 mcg 10/09/17 07:00 Synthroid - PO DAILY@0700 [facility] Mupirocin 1 applic 10/08/17 22:00 Bactroban Ointment (For Decolonization) - NS 10/13/17 21:59 BID [facility] Pantoprazole Sodium 40 mg 10/09/17 10:00 Protonix - PO DAILY RYAN CBC, BMP 10/08/17 16:40 10/08/17 16:40 ASSESSMENT/PLAN: 62 year old female with pmhx of hypothyroidism and lacunar stroke presented to ED by her son who found her unresponsive,in Ed pt found to have septic shock and admitted to ICU for further evaluation. # Septic shock unknown etilogy , * pt was hypotensive on admission with LA 2.4 and fever 104 * IV fluids in ED bolus and maintenance * muñoz cx blood urine * cxr, CT abdomen pelvic and Ct head without contrast * Levophed at 10mcgs, titrate to MAP > 65 --> improved to 123/94 (MAP 104) and pressures were held due to improve BP and stable .....pt BP has droped again and will resume fluids @ 125 CC and pressers * Vancomycin 1gm Q12, Rocephin 2gm Q12, Ampicillin 2gms Q6h * LP to R/O meningitis (no nuchal rigidity on physical exam , pt mental status has improved with IV fluids ) * admit to ICU * LA 2.4 ....1.6 after fluids # AMS likely 2/2 dehydration vs low oral intake ,vs heat stroke , vs stroke * was unresponsive on admission improve with IV fluids * continue NS @ 125 CC/hr * repeat BMP in AM * f/u head ct w/o contrast * urine toxicology screen * cortisol AM # troponinemia likely demand ischemia * trop 0.17 on admission likely due to ADIS , trend * EKG no St, T wave changes * pt denies any chest pain or discomfort * echo # ADIS * likely pre renal azotemia due to volume depletion , CR 1.3 * continue IV fluids * Monitor I&O * repeat BUN /Cr in AM * # H/O Hypothyroisdm * pt is not taking any meds , no PCP for last 7 years * denies nay heat or cold intolerance * TSH and Free T4 * continue previous home dose * # FEN * F: Continue on 125 CC/ hr NS (NS bolus was given in ED ) * E: mild hyponatremia 134 repeat in AM * N: NPO for now # Proph * DVTS: SCDS both legs , hep 5000 DQ TID * GI: no need for now # Dispo * Admit to ICU * total critical time 45 min Dispo: We will continue to follow the patient. Thank you for this consultative opportunity. Visit type - Emergency Visit Emergency Visit: Yes ED Registration Date: 10/08/17 Care time: The patient presented to the Emergency Department on the above date and was hospitalized for further evaluation of their emergent condition. - New Patient This patient is new to me today: Yes Date on this admission: 10/08/17 - Critical Care Critical Care patient: Yes Total Critical Care Time (in minutes): 45 Critical Care Statement: The care of this patient involved high complexity decision making to prevent further life threatening deterioration of the patient 's condition and/or to evaluate & treat vital organ system(s) failure or risk of failure.
[2017-10-08] MEDS ORDERED: DEXTROSE 5%-WATER 100 ML IVPB ONE (22:41)
[2017-10-08] MEDS ORDERED: CEFTRIAXONE 2 GM in DEXTROSE 5%-WATER 100 ML IVPB SCH (22:45)
[2017-10-08] MEDS: SODIUM CHLORIDE 1,000 ML IV SCH (22:48)
[2017-10-08] MEDS: AMPICILLIN - 2 GM in SODIUM CHLORIDE 100 ML IVPB SCH (22:48)
[2017-10-08] MEDS: CHLORHEXIDINE GLUCONATE 4% CLEANSER FOR DECOLONIZATION TP SCH (22:49)
[2017-10-08] MEDS: MUPIROCIN 2% TOPICAL OINTMENT FOR DECOLONIZATION NS SCH (22:49)
[2017-10-09] MEDS: HEPARIN NA (PORCINE) 5,000 UNITS/ML 1ML VIAL SQ SCH ×2 (01:48→09:34)
[2017-10-09] MEDS: ACETAMINOPHEN 325 MG TABLET (FP) PO PRN (01:48)
[2017-10-09] MEDS: AMPICILLIN - 2 GM in SODIUM CHLORIDE 100 ML IVPB SCH (02:02)
[2017-10-09] MEDS: ACETAMINOPHEN 1000 MG/100 ML VIAL (NON FORMULARY) IVPB PRN ×2 (02:41→16:32)
[2017-10-09] MEDS ORDERED: NOREPINEPHRINE BITARTRATE 4 MG/4 ML ML IV ONE ×3 (03:15→19:57)
[2017-10-09] MEDS ORDERED: VANCOMYCIN 1,000 MG in DEXTROSE 5%-WATER - 250 ML IVPB ONE (05:00)
[2017-10-09 06:31] LABS: BASO % 0.4 % (0-2.0); EOS % 1.9 % (0-4.5); HEMATOCRIT 32.6 % (32.4-45.2); HEMOGLOBIN 11.2 GM/dL (10.7-15.3); LYMPH % 20.7 % (8-40); MCH 30.9 pg (25.7-33.7); MCHC 34.5 g/dl (32.0-36.0); MEAN CELL VOLUME 89.5 fl (80-96); MEAN PLT VOLUME 7.6 fl (7.5-11.1); MONO % 7.1 % (3.8-10.2); NEUT % 69.9 % (42.8-82.8); PLATELET COUNT 210 K/MM3 (134-434); RBC 3.64 M/mm3 (3.60-5.2); RDW 13.8 % (11.6-15.6); WHITE BLOOD COUNT 8.6 K/mm3 (4.0-10.0)
[2017-10-09 06:48] LABS: ANION GAP 8 (8-16); BLOOD UREA NITROGEN 11 mg/dL (7-18); CHLORIDE 108 mmol/L (98-107); CO2 20 mmol/L (21-32); GLUCOSE,RANDOM 172 mg/dL (74-106); MAGNESIUM 1.5 mg/dL (1.8-2.4); POTASSIUM 3.5 mmol/L (3.5-5.1); SODIUM 136 mmol/L (136-145)
[2017-10-09 06:51] LABS: PHOSPHOROUS 2.1 mg/dL (2.5-4.9)
[2017-10-09] MEDS ORDERED: ONDANSETRON 4 MG/2 ML VIAL IVPUSH ONE (06:58)
[2017-10-09] MEDS ORDERED: LEVOTHYROXINE NA 50 MCG TABLET (FP) PO SCH (07:00)
[2017-10-09 07:33] LABS: CALCIUM 6.7 mg/dL (8.5-10.1)
--- NOTE | 2017-10-09 07:48 | PN ---
Progress Note (short form) - Note Progress Note: ID This is a 62 year old female of [place] descent living [place] the [place] with her family brought to ICU in septic shock. She lives at home with family and seemed fine all day yesterday right into the evening. During the night she was noted to be unresponsive and brought to ER where noted to be in septic shock febrile hypotensive hypoxic. Empiric antibiotics given and the question of meningitis raised given Amp Vanco and Ceftriaxone. Currently the patient is on pressors. She is experiencing nausea and having vomiting but denies abd pain. She did have a CT of the abd apparently negative and head CT negative though not read officially. She denies SOB couph urinary complaints She does complain of a "bad tooth upper left molar. The left side of her face is swollen around her eye especially though she did not come in with this. There is no history of travel. SHe has hypothyroidism as her major medical issues and no allergies to meds. Selected Entries 10/08/17 10/08/17 10/09/17 16:25 16:30 05:00 Temperature 104.5 F H 98.7 F Pulse Rate Respiratory 22 Rate Blood Pressure 70/40 O2 Sat by Pulse 93 L Oximetry (%) 10/09/17 05:25 Temperature Pulse Rate 76 Respiratory Rate Blood Pressure 105/49 O2 Sat by Pulse Oximetry (%) Ill appearing but in no distress HEENT left periorbital swelling as well as generalized facial swelling Tooth upper molar appears broken with gingivitis all teeth NO localized dental tenderness Neck Supple Lung Clear Cor S1 S2 RR Abd Soft nontender BS pos Ext NO CCE Microbiology Laboratory Tests 10/08/17 10/08/17 10/08/17 16:40 16:40 16:40 WBC 8.0 D Hgb 14.3 D Hct 42.4 D Plt Count 266 D MPV 7.5 INR 1.23 H BUN 13 Creatinine 1.3 H Lactic Acid AST 53 H ALT 21 Alkaline Phosphatase 86 Troponin I Urine WBC (Auto) Urine RBC (Auto) 10/08/17 10/08/17 10/08/17 16:40 16:40 16:48 WBC Hgb Hct Plt Count MPV INR BUN Creatinine Lactic Acid 2.4 H* AST ALT Alkaline Phosphatase Troponin I 0.17 H Urine WBC (Auto) 1 Urine RBC (Auto) 44 Assessment Sepsis unknown source. Given the rapidity of her presentation must consider bacterial disease Staph Strep GNB Also has poor dentition broken molar ? infected another possible source anaerobic sepsis Fusobacterium ?? With normal CBC viral disease considered though this this is alot of acute illness and very rapid for that. I do not think she has meningitis. Lastly she has what looks to me to have angioedema ? PCN related given here as she did not come in with this. Plan Pending cultures Vanco 750mg q 12 Ceftriaxone 2 grs daily Clinda 600 q 6 CRP HIV test Jihan SCHAEFFER Problem List - Problems (1) Septic shock Code(s): A41.9 - SEPSIS, UNSPECIFIED ORGANISM; R65.21 - SEVERE SEPSIS WITH SEPTIC SHOCK
[2017-10-09] MEDS ORDERED: methylPREDNISolone NA SUCC 125 MG/2 ML VIAL IVPUSH ONE (08:13)
[2017-10-09] MEDS: NOREPINEPHRINE BITARTRATE 4,000 MCG in DEXTROSE 5%-WATER - 496 ML IV SCH ×2 (08:15→20:05)
[2017-10-09] MEDS: SODIUM CHLORIDE 1,000 ML IV SCH ×2 (08:15→20:05)
[2017-10-09] MEDS ORDERED: MAGNESIUM SULF 50% (8.12 MEQ/2 ML-1 GM VIAL) IVPB ONE (08:49)
[2017-10-09] MEDS ORDERED: ONDANSETRON 4 MG/2 ML VIAL IVPUSH PRN (08:51)
[2017-10-09] MEDS ORDERED: DEXTROSE 5%-WATER 100 ML IVPB ONE ×2 (09:19→18:16)
--- NOTE | 2017-10-09 09:22 | PN ---
Physical Exam: SUBJECTIVE: Patient seen and examined at bedside. Overnight, pt with three episodes of NBNB emesis. This AM, pt AAOx3. With son and family at bedside. On levo 20 mcg, dopa 2mcg. BP holding, with MAP 71. With facial angioedema, received solumedrol 125mg x 1, as well as Benadryl. Likely rxn from abx. Pt had LP last done in 2012 at [facility]. She moved to the [facility] from [place] thirteen years ago. As per son, today pt without other complaints such as LANE, chills, SOB, chest pain or pressure or changes in urinary or bowel function. OBJECTIVE: Vital Signs Period Temp Pulse Resp BP Sys/Rios Pulse Ox Last 24 Hr 98.3 F-104.5 F 70-119 14-24 61-119/27-68 93-100 GENERAL: The patient is lethargic, however AAOx3, in no acute distress. HEAD: +L eyelid - swollen shut, with patchy erythema EYES: PERRL, extraocular movements intact, sclera anicteric, conjunctiva clear. ENT: Ears normal, nares patent, oropharynx clear without exudates TEETH: +Poor dentition, decaying L molar NECK: Trachea midline, supple. LUNGS: Breath sounds equal, clear to auscultation bilaterally, no wheezes, no crackles. + rhonchi appreciated RLL HEART: Regular rate and rhythm, S1, S2 without murmur, rub or gallop. ABDOMEN: Soft, nontender, nondistended, normoactive bowel sounds, no guarding, no rebound EXTREMITIES: 2+ dp,pt pulses, warm, well-perfused, no edema. NEUROLOGICAL: Cranial nerves II through XII grossly intact. Pt unable to participate in strength exam, lethargic. PSYCH: Normal mood, normal affect. SKIN: Warm, dry, normal turgor Laboratory Results 10/08/17 10/08/17 10/08/17 16:40 16:40 16:48 WBC Chloride BUN 13 Creatinine Calcium 8.6 Creatine Kinase Troponin I 0.17 H Urine Protein 2+ H Urine Blood 3+ H 10/09/17 10/09/17 10/09/17 00:39 05:30 05:30 WBC 8.6 Hgb 11.2 D Hct 32.6 D Plt Count 210 D Sodium 136 Potassium 3.5 Chloride 108 H Carbon Dioxide 20 L BUN 11 Creatinine 1.0 Calcium 6.7 L* Creatine Kinase 291 H 424 H Troponin I 0.30 H 0.21 H Urine Protein Urine Blood CSF Analysis 10/09/17 14:00 CSF Appearance Clear CSF Color Colorless CSF WBC 13 CSF RBC 3 CSF Neutrophils 0 CSF Lymphocytes 98 CSF Monocytes 0 CSF Eosinophils 0 CSF Basophils 0 CSF Macrophages 2 CSF Plasma Cells 0 CSF Glucose 112 H CSF Total Protein 79 H Microbiology 10/09/17 14:00 Cerebral Spinal Fluid - Lumbar Puncture Gram Stain - Final 10/09/17 14:16 Nasopharyngeal Swab Respiratory Virus (PCR) - Preliminary 10/09/17 14:00 Cerebral Spinal Fluid - Lumbar Puncture Viral Culture - Preliminary 10/09/17 14:00 Cerebral Spinal Fluid - Lumbar Puncture Mycobacteria (PCR) - Preliminary 10/09/17 14:00 Cerebral Spinal Fluid - Lumbar Puncture Cryptococcal Antigen - Preliminary 10/08/17 16:48 Blood - Peripheral Venous Blood Culture - Preliminary NO GROWTH OBTAINED AFTER 24 HOURS, INCUBATION TO CONTINUE FOR 4 DAYS. 10/08/17 16:48 Blood - Peripheral Venous Blood Culture - Preliminary NO GROWTH OBTAINED AFTER 24 HOURS, INCUBATION TO CONTINUE FOR 4 DAYS. Imaging -10/08/17: CXR (series of three): line placement; image 1: no acute pathology. repeat: without pneumothorax. additional imaging: no obvious infiltrate or pleural effusion, minimal pleural thickening along the horizontal fissure -10/09/17: Abd/Pelvis CT w/o contrast: small, b/l pleural effusions with atelectatic changes involving the lower lobes. additional areas of atelectasis in both lungs with scattered nodularity, R apical pleural thickening and faint groundglass opacification. these changes may be chronic in nature. no evidence of acute consolidation. trace ascites in lower abdomen. distended urinary bladder. no bony abnormalities. -10/09/17: Head CT: moderate-sized faint low-attenuation density in the R frontal lobe at the level of gregory radiata and centrum semiovale is highly suspicious for an acute/subacute infarct for which follow up CT or MRI of brain is recommended. no acute intracranial hemorrhage is seen. moderate soft tissue swelling over left side of head. -10/09/17: GB U/S: technically limited exam 2/2 portable technique and body habitus. moderate GB distension is presumably physiologic. no evidence of cholelithiasis. no definite evidence of acute cholecystitis. trace pericholecystic fluid is nonspecific. no definite intrahepatic or extrahepatic bile duct dilation. -10/09/17: ECHO: EF 69.1%, normal LV EF, moderate TR, RVSP elevated at 40-50 mmHg , trace to mild MR, mild HI. Active Medications Generic Name Dose Route Start Last Admin Trade Name Freq PRN Reason Stop Dose Admin Acetaminophen 650 mg 10/08/17 20:15 10/09/17 01:48 Tylenol - PO 650 mg Q4H PRN Administration FEVER Acetaminophen 1,000 mg 10/09/17 02:09 10/09/17 02:41 Ofirmev Injection - IVPB 1,000 mg Q8H PRN Administration FEVER Chlorhexidine Gluconate 1 applic 10/08/17 22:00 10/08/17 22:49 Hibiclens For Decolonization - TP 1 applic HS RYAN Administration Heparin Sodium (Porcine) 5,000 unit 10/09/17 02:00 10/09/17 01:48 Heparin - SQ 5,000 unit Q8H-IV RYAN Administration Norepinephrine Bitartrate 4, 500 mls @ 37.5 mls/hr 10/08/17 19:15 10/09/17 08 :15 000 mcg/ Dextrose IV 20 mcg/min TITR RYAN 150 mls/hr Administration Protocol 5 MCG/MIN Sodium Chloride 1,000 mls @ 125 mls/hr 10/08/17 20:00 10/09/17 08:15 Normal Saline - IV 125 mls/hr ASDIR RYAN Administration Vancomycin HCl 750 mg/ 250 mls @ 250 mls/hr 10/09/17 09:00 Dextrose IVPB BID@0900,2100 RYAN Ceftriaxone Sodium 2 gm/ 100 mls @ 200 mls/hr 10/09/17 10:00 Dextrose IVPB DAILY RYAN Protocol Clindamycin Phosphate 600 mg in 50 mls @ 100 mls/hr 10/09/17 10:00 Cleocin 600 Mg Premix Ivpb - IVPB Q8H-IV RYAN Protocol Magnesium Sulfate/Dextrose 1 gm in 100 mls @ 100 mls/hr 10/09/17 09:30 Magnesium 1gm/D5w - IVPB 10/09/17 10:29 ONCE ONE Levothyroxine Sodium 25 mcg 10/09/17 10:00 Synthroid Injection - IVPUSH DAILY RYAN Mupirocin 1 applic 10/08/17 22:00 10/08/17 22:49 Bactroban Ointment (For Decolonization) - NS 10/13/17 21:59 1 applic BID RYAN Administration Ondansetron HCl 4 mg 10/09/17 08:51 Zofran Injection IVPUSH Q6H PRN NAUSEA AND/OR VOMITING Pantoprazole Sodium 40 mg 10/09/17 10:00 Protonix - PO DAILY [facility] ASSESSMENT/PLAN: 62 y/o [place] F with hx of hypothyroidism, who was brought to ED by son after he found her unresponsive and febrile in her room. Pt found to be in septic shock. #Septic shock likely 2/2 SEAT MAKER infection -with change in mental status, possibly SEAT MAKER vs. dental source -without evidence of UTI, or alternate etiology -Head CT: with moderate-sized faint low-attenuation density in the R frontal lobe; possible cerebritis vs. abscess -pt requiring pressor support; on levo, dopa gtt -titrate to keep MAP>65 -watch fever curve -CSF: suggests viral etiology; lymphocyte predominant. with elev protein -Continue rocephin 2g IVPB qd, vanco 750 mg IVPB qd (Day1) -allergic to ampicillin- angioedema -Started on acyclovir 500mg IVPB q8h (Day1) -F/u CSF cx, blood cx (-) after 24h, ucx- pending -Follow HSV titers #R/o CVA -Head CT: r/o acute vs. subacute frontal infarct -F/u Brain MRI -F/u ECHO, carotid doppler -F/u lipid panel -if stroke, will need ASA, statin -speech and swallow eval when able -Neuro on board- Dr. Britton -F/u B12, RPR, HIV testing #Angioedema likely 2/2 abx -Likely from ampicillin -monitor airway -received IV medrol 125 x1, Benadryl -continue benadryl 25mg IVP q6h -solumedrol 40mg IVP q8h -Pepcid 20mg IVP BID #Bladder distension -Richard placement #Tropinemia likely 2/2 demand from septic shock -has peaked at 0.30 -0.17> 0.30>0.21 -Cardio on board: Dr. Del Cid -ECHO without evidence vegetations #Hypothyroidism -Will need to obtain files from PCP. currently without complaint -as per pharmacy x2, currently not on levothyroxine. Confirmed by son -TSH 1.48 -has been d/c #F/E/N IV NS 125 cc/hr Continue to follow lytes NPO; avoid risk of aspiration #PPX DVT: heparin on hold; d/t LP #Dispo Cont'd monitoring in ICU Visit type - Emergency Visit Emergency Visit: No - New Patient This patient is new to me today: No - Critical Care Critical Care patient: Yes Total Critical Care Time (in minutes): 44 Critical Care Statement: The care of this patient involved high complexity decision making to prevent further life threatening deterioration of the patient 's condition and/or to evaluate & treat vital organ system(s) failure or risk of failure.
[2017-10-09] MEDS ORDERED: MAGNESIUM 1GM/D5W - 1 GM/100 ML IVPB IVPB ONE (09:30)
[2017-10-09] MEDS: VANCOMYCIN 750 MG in DEXTROSE 5%-WATER - 250 ML IVPB SCH ×2 (09:32→21:19)
[2017-10-09] MEDS: CLINDAMYCIN 600MG PREMIX IVPB 600 MG/50 ML BAG IVPB SCH ×2 (09:33→17:27)
[2017-10-09] MEDS: PANTOPRAZOLE 40 MG TABLET (FP) PO SCH (09:34)
--- NOTE | 2017-10-09 09:37 | CON.CARD ---
Consult - History of Present Illness History of Present Illness: This is a 62 year old female of [place] descent living [place] the [place] with her family brought to ICU in septic shock. She lives at home with family and seemed fine all day yesterday right into the evening. During the night she was noted to be unresponsive and brought to ER where noted to be in septic shock febrile hypotensive hypoxic. Empiric antibiotics given and the question of meningitis raised given Amp Vanco and Ceftriaxone. Currently the patient is on pressors. She is experiencing nausea and having vomiting but denies abd pain. She did have a CT of the abd apparently negative and head CT negative though not read officially. She denies SOB couph urinary complaints She does complain of a "bad tooth upper left molar. The left side of her face is swollen around her eye especially though she did not come in with this. There is no history of travel. SHe has hypothyroidism as her major medical issues and no allergies to meds. - Past Medical History Endocrine: Yes: Hypothyroidism - Alcohol/Substance Use Hx Alcohol Use: No - Smoking History Smoking history: Never smoked Aproximately how many cigarettes per day: 0 Home Medications - Allergies Allergies/Adverse Reactions: Allergies Allergy/AdvReac Type Severity Reaction Status Date / Time No Known Allergies Allergy Verified 10/08/17 17:24 - Home Medications Home Medications: Ambulatory Orders Levothyroxine [Synthroid -] 50 mcg PO DAILY@0700 #0 tablet 07/10/12 Pantoprazole Sodium [Protonix -] 40 mg PO DAILY #0 tablet.ec 07/10/12 Acetaminophen [Tylenol] 650 mg PO Q4H PRN 05/24/17 Ibuprofen [Motrin -] 600 mg PO TID PRN 05/24/17 Vital Signs: Vital Signs Temperature 98.3 F 10/09/17 08:00 Pulse Rate 76 10/09/17 08:15 Respiratory Rate 16 10/09/17 08:00 Blood Pressure 94/39 10/09/17 08:15 O2 Sat by Pulse Oximetry (%) 100 10/09/17 08:36 Constitutional: Yes: Well Nourished, No Distress, Calm Eyes: Yes: WNL, Conjunctiva Clear, EOM Intact HENT: Yes: WNL, Atraumatic, Normocephalic Neck: Yes: WNL, Supple, Trachea Midline Respiratory: Yes: WNL, Regular, CTA Bilaterally Gastrointestinal: Yes: WNL, Normal Bowel Sounds Renal/: Yes: WNL Cardiovascular: Yes: WNL, Regular Rate and Rhythm Musculoskeletal: Yes: WNL Extremities: Yes: WNL Integumentary: Yes: WNL Neurological: Yes: Alert, Lethargy ...Motor Strength: WNL Psychiatric: Yes: WNL, Alert, Oriented - Other Data Labs, Other Data: CBC, BMP 10/09/17 05:30 10/09/17 05:30 INR, PTT INR 1.23 (0.82-1.09) H 10/08/17 16:40 Troponin, BNP 10/08/17 10/09/17 10/09/17 16:40 00:39 05:30 Troponin I 0.17 H 0.30 H 0.21 H 10/09/17 06:00 Troponin I Cancelled Troponin, BNP 10/08/17 10/09/17 10/09/17 16:40 00:39 05:30 Troponin I 0.17 H 0.30 H 0.21 H 10/09/17 06:00 Troponin I Cancelled Imaging - Results Chest X-ray: Image Reviewed (no i/e) EKG: Image Reviewed (s tachy rep abn) Problem List - Problems (1) Septic shock Code(s): A41.9 - SEPSIS, UNSPECIFIED ORGANISM; R65.21 - SEVERE SEPSIS WITH SEPTIC SHOCK (2) Gastroenteritis Code(s): K52.9 - NONINFECTIVE GASTROENTERITIS AND COLITIS, UNSPECIFIED (3) Headache Code(s): R51 - HEADACHE (4) Influenza Code(s): J11.1 - FLU DUE TO UNIDENTIFIED INFLUENZA VIRUS W OTH RESP MANIFEST (5) Nausea and vomiting Code(s): R11.2 - NAUSEA WITH VOMITING, UNSPECIFIED Assessment/Plan Altered Mental Status Septic Shock of unclear source r/o Acute CVA vs Encephalitis/Meningitis Lactic Acidosis +Troponins likely secondary to septic shock - doubt primary mi Acute Kidney Injury Hypothyroidism Plan cycle CE echo supportive rx asper ID Neuro and ICU team cc time spent 70 min
--- NOTE | 2017-10-09 09:38 | EKG ---
Test Reason : Blood Pressure : / mmHG Vent. Rate : 111 BPM Atrial Rate : 111 BPM P-R Int : 170 ms QRS Dur : 096 ms QT Int : 362 ms P-R-T Axes : 071 082 055 degrees QTc Int : 492 ms SINUS TACHYCARDIA NONSPECIFIC ST AND T WAVE ABNORMALITY ABNORMAL ECG WHEN COMPARED WITH ECG OF 24-MAY-2017 22:11, VENT. RATE HAS INCREASED BY 47 BPM Confirmed by DARIUS SCHAEFFER, SOTERO ([id number]) on 10/09/2017 9:38:31 AM Referred By: Confirmed By:SOTERO MCCOY MD
[2017-10-09] MEDS ORDERED: CALCIUM GLUCONATE 10% - 1,000 MG/10 ML VIAL IVPB ONE (09:41)
[2017-10-09] MEDS ORDERED: CEFTRIAXONE 2 GM in DEXTROSE 5%-WATER 100 ML IVPB SCH (10:00)
[2017-10-09] MEDS ORDERED: LEVOTHYROXINE SODIUM 100 MCG VIAL IVPUSH SCH ×2 (10:00)
[2017-10-09] MEDS: MUPIROCIN 2% TOPICAL OINTMENT FOR DECOLONIZATION NS SCH ×2 (10:55→21:20)
--- NOTE | 2017-10-09 11:42 | PN ---
Teaching Attending Note Name of Resident: Mayela Shepard ATTENDING PHYSICIAN STATEMENT I saw and evaluated the patient. I reviewed the resident's note and discussed the case with the resident. I agree with the resident's findings and plan as documented. SUBJECTIVE: Pt seen and examined in the ICU. Remains on levophed gtt. Fever curve trending down. OBJECTIVE: Vital Signs Period Temp Pulse Resp BP Sys/Rios Pulse Ox Last 24 Hr 98.3 F-104.5 F 70-119 12-24 61-135/27-68 93-100 Intake & Output 10/06/17 10/07/17 10/08/17 10/09/17 23:59 23:59 23:59 23:59 Output Total 200 250 Balance -200 -250 Weight 43.545 kg 43.545 kg Gen: restless, confused Heart: tachycardic, regular Lung: decreased breath sounds at the bases Abd: soft, nontender Ext: no edema CBC, BMP 10/09/17 05:30 10/09/17 05:30 Active Medications Acetaminophen (Tylenol -) 650 mg PO Q4H PRN PRN Reason: FEVER Last Admin: 10/09/17 01:48 Dose: 650 mg Acetaminophen (Ofirmev Injection -) 1,000 mg IVPB Q8H PRN PRN Reason: FEVER Last Admin: 10/09/17 02:41 Dose: 1,000 mg Chlorhexidine Gluconate (Hibiclens For Decolonization -) 1 applic TP HS RYAN Last Admin: 10/08/17 22:49 Dose: 1 applic Norepinephrine Bitartrate 4, (000 mcg/ Dextrose) 500 mls @ 37.5 mls/hr IV TITR RYAN; Protocol Last Admin: 10/09/17 08:15 Dose: 20 mcg/min, 150 mls/hr Sodium Chloride (Normal Saline -) 1,000 mls @ 125 mls/hr IV ASDIR RYAN Last Admin: 10/09/17 08:15 Dose: 125 mls/hr Vancomycin HCl 750 mg/ (Dextrose) 250 mls @ 250 mls/hr IVPB BID@0900,2100 RYAN Last Admin: 10/09/17 09:32 Dose: 250 mls/hr Ceftriaxone Sodium 2 gm/ (Dextrose) 100 mls @ 200 mls/hr IVPB DAILY RYAN; Protocol Last Admin: 10/09/17 09:34 Dose: 200 mls/hr Clindamycin Phosphate (Cleocin 600 Mg Premix Ivpb -) 600 mg in 50 mls @ 100 mls /hr IVPB Q8H-IV RYAN; Protocol Last Admin: 10/09/17 09:33 Dose: 100 mls/hr Levothyroxine Sodium (Synthroid Injection -) 25 mcg IVPUSH DAILY [facility] Mupirocin (Bactroban Ointment (For Decolonization) -) 1 applic NS BID [facility] Stop: 10/13/17 21:59 Last Admin: 10/08/17 22:49 Dose: 1 applic Ondansetron HCl (Zofran Injection) 4 mg IVPUSH Q6H PRN PRN Reason: NAUSEA AND/OR VOMITING Pantoprazole Sodium (Protonix -) 40 mg PO DAILY [facility] Last Admin: 10/09/17 09:34 Dose: 40 mg ASSESSMENT AND PLAN: Altered Mental Status Septic Shock of unclear source r/o Acute CVA vs Encephalitis/Meningitis Lactic Acidosis +Troponins likely Demand Ischemia Acute Kidney Injury Hypothyroidism - continue antibiotics per ID - f/u cultures - send flu swab, viral PCR - lumbar puncture - MRI brain - check CVP - IVF to keep CVP 8-12 - titrate pressors to maintain MAP >65 - monitor urine output, creatinine - trend cardiac enzymes - echocardiogram - aspiration precautions - DVT prophylaxis critical care time spent in reviewing chart, evaluating patient and formulating plan 35 min
--- NOTE | 2017-10-09 14:01 | PROC ---
<Mayela Shepard - Last Filed: 10/09/17 14:00> Lumbar Puncture Risks and Benefits Explained: Yes Consent on Chart: Yes Sterile Technique: Yes Skin prep: Chlorhexidine Position: Sitting Site: L4-L51 Local Anesthesia: 1% Lidocaine with epi Opening Pressure(mmHg): 21 CSF Color, Appearance: Clear Sterile Dressing Applied: Yes <Emanuel Tello MD - Last Filed: 10/09/17 14:02> Procedure Note Procedure: I supervised and was present during the entire procedure. Emanuel Tello MD
--- NOTE | 2017-10-09 14:18 | PN ---
Teaching Attending Note Name of Resident: Marcelle Hodge ATTENDING PHYSICIAN STATEMENT I saw and evaluated the patient. I reviewed the resident's note and discussed the case with the resident. I agree with the resident's findings and plan as documented. SUBJECTIVE:seen at 10 am unable to obtain hx. per family, she looks better than presentation but worse mentally than earlier this am. last nigh patient developed facial edema , and was given solu-medrol OBJECTIVE: awake, restless. answer some questions , not cooperative. L facial swelling with eye lids and lip included. No tongue edema CV: RRR, no MRG Lungs: CTAB Abd: sfot, Nt, ND , NL BS Ext: no edema or erythema . no rash. poor cooperation for neuro exm: moves all her ext spontaneously. 1+ knee jerk and biceps . no facial droop, EOMI, round equal pupils , reactive to light . knows her name, thinks she is 58 y/o . ASSESSMENT AND PLAN: 62 y/o lady with h/o hypothyroidism, and CVA who presented with AMS and was found to have fevers and shock requiring pressors 1- Shock: of unclear source. fevers might indicate infectious etiology. unlikely cardiogenic shock , even with minimal trop leak. no recent h/o diarrhea or vomiting to indicate severe volume depletion as a cause. source of infection not clear. ? RADIATOR REPAIRER ( meningitis /encephalitis ) vs bacteremia and endocarditis - cont coverage with clinda, vanco and ceftriaxone - Acyclovir is not recommended per ID yet - follow blood cx. - follow LP 2- AMS, encephalopathy: unclear etiology. ? meningitis /encephalitis vs acute stroke. limited neuro exam due to poor cooperation, but with no obvious focal deficits. TSH NL. has h/o stroke and does not seem to be on ASA - MRI of brain to further identify the frontal lobe lesion - follow LP results - if stoke is confirmed, will do aspirin , statin. - cont coverage for RADIATOR REPAIRER infection - check B12, RPR . HIV sent 3- h/o hypothyroidis, TSH is NL. will confirm her home meds , per , not on any synthroid at home 4-distended bladder on CT. - place alfonso 5- elevated troponins: likely demand. EKG reviewed. - echo pending 6- Angioedema: ? reaction to ampicillin. No resp compromise . s/p one dose of steroids - will monitor air ways - start H2 blockers IV -cont steorids 7- DVT PX . heparin on hold till this evening for LP
[2017-10-09 14:24] LABS: GLUCOSE,CSF 112 mg/dL (50-80)
[2017-10-09] MEDS: methylPREDNISolone NA SUCC 40 MG/1 ML VIAL IVPUSH SCH ×2 (14:57→17:27)
[2017-10-09 15:12] LABS: CSF APPEARANCE CLEAR; CSF WBC 13
--- NOTE | 2017-10-09 15:30 | PN ---
Physical Exam: SUBJECTIVE: Patient seen and examined lethargic; left eye swelling; lip swelling , fever overnight. OBJECTIVE: Vital Signs Period Temp Pulse Resp BP Sys/Rios Pulse Ox Last 24 Hr 98.3 F-104.5 F 70-119 12-24 61-139/27-71 93-100 GENERAL: The patient is lethargic but arousable HEAD: Normal with no signs of trauma. EYES: right eye swollen shut ENT: oropharynx not visible due to swelling NECK: Trachea midline, full range of motion, supple. LUNGS: Breath sounds equal, clear to auscultation bilaterally, no wheezes, no crackles, no accessory muscle use. HEART: tachy and reg rhythm, S1, S2 without murmur, rub or gallop. ABDOMEN: Soft, nontender, nondistended, normoactive bowel sounds, no guarding, no rebound, no hepatosplenomegaly, no masses. EXTREMITIES: 2+ pulses, warm, well-perfused, no edema. NEUROLOGICAL: Cranial nerves II through XII grossly intact. slowed speech, gait not observed. strength ; /5 throughout muscle group; sensation intact; no nuchal rigidity SKIN: Warm, dry, normal turgor, no rashes or lesions noted Laboratory Results - last 24 hr 10/08/17 10/08/17 10/08/17 16:40 16:40 16:40 WBC 8.0 D RBC 4.75 Hgb 14.3 D Hct 42.4 D MCV 89.2 MCH 30.1 MCHC 33.7 RDW 13.6 Plt Count 266 D MPV 7.5 Neutrophils % 62.9 D Lymphocytes % 28.5 D Monocytes % 6.8 Eosinophils % 0.8 D Basophils % 1.0 Nucleated RBC % 0 PT with INR 13.90 H INR 1.23 H PTT (Actin FS) 48.3 H VBG pH 7.35 POC VBG pCO2 44.2 POC VBG pO2 34.9 Mixed VBG HCO3 24.0 Sodium Potassium Chloride Carbon Dioxide Anion Gap BUN Creatinine Creat Clearance w eGFR Random Glucose Lactic Acid Calcium Phosphorus Magnesium Total Bilirubin AST ALT Alkaline Phosphatase Creatine Kinase Creatine Kinase Index CK-MB (CK-2) Troponin I Total Protein Albumin Vitamin B12 TSH Urine Color Urine Appearance Urine pH Ur Specific [place] Urine Protein Urine Glucose (UA) Urine Ketones Urine Blood Urine Nitrite Urine Bilirubin Urine Urobilinogen Ur Leukocyte Esterase Urine WBC (Auto) Urine RBC (Auto) Urine Bacteria CSF Glucose CSF Total Protein 10/08/17 10/08/17 10/08/17 16:40 16:40 16:40 WBC RBC Hgb Hct MCV MCH MCHC RDW Plt Count MPV Neutrophils % Lymphocytes % Monocytes % Eosinophils % Basophils % Nucleated RBC % PT with INR INR PTT (Actin FS) VBG pH POC VBG pCO2 POC VBG pO2 Mixed VBG HCO3 Sodium 134 L Potassium 3.9 Chloride 100 Carbon Dioxide 24 Anion Gap 10 BUN 13 Creatinine 1.3 H Creat Clearance w eGFR 41.24 Random Glucose 120 H Lactic Acid 2.4 H* Calcium 8.6 Phosphorus Magnesium Total Bilirubin 0.8 D AST 53 H ALT 21 Alkaline Phosphatase 86 Creatine Kinase Creatine Kinase Index CK-MB (CK-2) Troponin I 0.17 H Total Protein 8.0 Albumin 3.9 Vitamin B12 TSH Urine Color Urine Appearance Urine pH Ur Specific [place] Urine Protein Urine Glucose (UA) Urine Ketones Urine Blood Urine Nitrite Urine Bilirubin Urine Urobilinogen Ur Leukocyte Esterase Urine WBC (Auto) Urine RBC (Auto) Urine Bacteria CSF Glucose CSF Total Protein 10/08/17 10/08/17 10/08/17 16:48 16:59 18:30 WBC RBC Hgb Hct MCV MCH MCHC RDW Plt Count MPV Neutrophils % Lymphocytes % Monocytes % Eosinophils % Basophils % Nucleated RBC % PT with INR INR PTT (Actin FS) VBG pH POC VBG pCO2 POC VBG pO2 Mixed VBG HCO3 Sodium Potassium Chloride Carbon Dioxide Anion Gap BUN Creatinine Creat Clearance w eGFR Random Glucose Lactic Acid 1.6 Calcium Phosphorus Magnesium Total Bilirubin AST ALT Alkaline Phosphatase Creatine Kinase Creatine Kinase Index CK-MB (CK-2) Troponin I Total Protein Albumin Vitamin B12 TSH 1.48 Urine Color Yellow Urine Appearance Slcloudy Urine pH 5.0 Ur Specific [place] 1.012 Urine Protein 2+ H Urine Glucose (UA) Negative Urine Ketones Negative Urine Blood 3+ H Urine Nitrite Negative Urine Bilirubin Negative Urine Urobilinogen Negative Ur Leukocyte Esterase Negative Urine WBC (Auto) 1 Urine RBC (Auto) 44 Urine Bacteria Rare CSF Glucose CSF Total Protein 10/09/17 10/09/17 10/09/17 00:39 05:30 05:30 WBC 8.6 RBC 3.64 D Hgb 11.2 D Hct 32.6 D MCV 89.5 MCH 30.9 MCHC 34.5 RDW 13.8 Plt Count 210 D MPV 7.6 Neutrophils % 69.9 Lymphocytes % 20.7 D Monocytes % 7.1 Eosinophils % 1.9 D Basophils % 0.4 Nucleated RBC % 0 PT with INR INR PTT (Actin FS) VBG pH POC VBG pCO2 POC VBG pO2 Mixed VBG HCO3 Sodium 136 Potassium 3.5 Chloride 108 H Carbon Dioxide 20 L Anion Gap 8 BUN 11 Creatinine 1.0 Creat Clearance w eGFR Random Glucose 172 H Lactic Acid Calcium 6.7 L* Phosphorus 2.1 L Magnesium 1.5 L Total Bilirubin AST ALT Alkaline Phosphatase Creatine Kinase 291 H 424 H Creatine Kinase Index 1.4 1.8 CK-MB (CK-2) 4.177 H 7.663 H Troponin I 0.30 H 0.21 H Total Protein Albumin Vitamin B12 TSH Urine Color Urine Appearance Urine pH Ur Specific [place] Urine Protein Urine Glucose (UA) Urine Ketones Urine Blood Urine Nitrite Urine Bilirubin Urine Urobilinogen Ur Leukocyte Esterase Urine WBC (Auto) Urine RBC (Auto) Urine Bacteria CSF Glucose CSF Total Protein 10/09/17 10/09/17 10/09/17 06:00 08:00 14:00 WBC RBC Hgb Hct MCV MCH MCHC RDW Plt Count MPV Neutrophils % Lymphocytes % Monocytes % Eosinophils % Basophils % Nucleated RBC % PT with INR INR PTT (Actin FS) VBG pH POC VBG pCO2 POC VBG pO2 Mixed VBG HCO3 Sodium Potassium Chloride Carbon Dioxide Anion Gap BUN Creatinine Creat Clearance w eGFR Random Glucose Lactic Acid Calcium Phosphorus Magnesium Total Bilirubin AST ALT Alkaline Phosphatase Creatine Kinase Cancelled Creatine Kinase Index CK-MB (CK-2) Troponin I Cancelled Total Protein Albumin Vitamin B12 Cancelled TSH Urine Color Urine Appearance Urine pH Ur Specific [place] Urine Protein Urine Glucose (UA) Urine Ketones Urine Blood Urine Nitrite Urine Bilirubin Urine Urobilinogen Ur Leukocyte Esterase Urine WBC (Auto) Urine RBC (Auto) Urine Bacteria CSF Glucose 112 H CSF Total Protein 79 H Active Medications Generic Name Dose Route Start Last Admin Trade Name Freq PRN Reason Stop Dose Admin Acetaminophen 650 mg 10/08/17 20:15 10/09/17 01:48 Tylenol - PO 650 mg Q4H PRN Administration FEVER Acetaminophen 1,000 mg 10/09/17 02:09 10/09/17 02:41 Ofirmev Injection - IVPB 1,000 mg Q8H PRN Administration FEVER Chlorhexidine Gluconate 1 applic 10/08/17 22:00 10/08/17 22:49 Hibiclens For Decolonization - TP 1 applic HS RYAN Administration Diphenhydramine HCl 25 mg 10/09/17 14:45 10/09/17 14:57 Benadryl Injection - IVPUSH 25 mg Q6H RYAN Administration Norepinephrine Bitartrate 4, 500 mls @ 37.5 mls/hr 10/08/17 19:15 10/09/17 08 :15 000 mcg/ Dextrose IV 20 mcg/min TITR RYAN 150 mls/hr Administration Protocol 5 MCG/MIN Sodium Chloride 1,000 mls @ 125 mls/hr 10/08/17 20:00 10/09/17 08:15 Normal Saline - IV 125 mls/hr ASDIR RYAN Administration Vancomycin HCl 750 mg/ 250 mls @ 250 mls/hr 10/09/17 09:00 10/09/17 09:32 Dextrose IVPB 250 mls/hr BID@[id number],2100 RYAN Administration Ceftriaxone Sodium 2 gm/ 100 mls @ 200 mls/hr 10/09/17 10:00 10/09/17 09:34 Dextrose IVPB 200 mls/hr DAILY RYAN Administration Protocol Clindamycin Phosphate 600 mg in 50 mls @ 100 mls/hr 10/09/17 10:00 10/09/17 09:33 Cleocin 600 Mg Premix Ivpb - IVPB 100 mls/hr Q8H-IV RYAN Administration Protocol Famotidine 20 mg in 12 mls @ 144 mls/hr 10/09/17 22:00 Pepcid 20 Mg/12 Ml Push IVPUSH BID RYAN Levothyroxine Sodium 25 mcg 10/09/17 10:00 10/09/17 11:42 Synthroid Injection - IVPUSH 25 mcg DAILY RYAN Administration Methylprednisolone Sodium Succinate 40 mg 10/09/17 14:45 10/09/17 14:57 Solu-Medrol - IVPUSH 40 mg Q8H-IV RYAN Administration Mupirocin 1 applic 10/08/17 22:00 10/09/17 10:55 Bactroban Ointment (For Decolonization) - NS 10/13/17 21:59 1 applic BID RYAN Administration Ondansetron HCl 4 mg 10/09/17 08:51 Zofran Injection IVPUSH Q6H PRN NAUSEA AND/OR VOMITING Pantoprazole Sodium 40 mg 10/09/17 10:00 10/09/17 09:34 Protonix - PO 40 mg DAILY RYAN Administration ASSESSMENT/PLAN: This is a 62 year old female with a history of hypothyroid, although not on any medications at home. Was brought in by son, due to lethargy, vomiting and fever of 104 at home. IN ER patient found to be in septic shock, current infectious source is unknown, r/o bacterial menigitis, acute cva, other infectious etiology. #Septic shock; unknown source; r/o bacterial meningitis; -muñoz culture. viral cultures; influenza -titrate pressers; keep MAP >65 -IV antibiotics; -LP; f/u csf findings -strict I/O -cvp; keep 8-10 #AMS; r/o cva -head CT suggestive of possible frontal/temporal acute vs subacute cva -no focal deficits on PE -f/u brain MRI w /wo contrast -echo -carotid doppler -if acute stroke ; will follow stroke protocol -check lipid panel -neurology on board #angioedema -stat IV solumedrol 125mg given -will continue 40mg IV q8 -standing benedryl 25mg q6h for now -npo due to swelling -aspiration precautions -bedside swallow eval when appropriate #Hypothyroid: -tsh wnl -not on home meds -was started on old dose of levothyroxine DVT ppl GI ppl Disposition: cont ICU monitoring Visit type - Emergency Visit Emergency Visit: Yes ED Registration Date: 10/08/17 Care time: The patient presented to the Emergency Department on the above date and was hospitalized for further evaluation of their emergent condition. - New Patient This patient is new to me today: Yes Date on this admission: 10/09/17 - Critical Care Critical Care patient: Yes Total Critical Care Time (in minutes): 40 Critical Care Statement: The care of this patient involved high complexity decision making to prevent further life threatening deterioration of the patient 's condition and/or to evaluate & treat vital organ system(s) failure or risk of failure.
[2017-10-09 15:58] LABS: CSF COLOR COLORLESS
--- NOTE | 2017-10-09 16:49 | CONSULT ---
Consult - text type - Consultation Consultation Note: NEUROLOGY CONSULTATION is greatly appreciated: This 62 yo [place] woman has resided in the [place] for 13 years without recent travel. PMH of hypothyroidism, GERD on synthroid, protonix. Lives with her son. Brought to ER last PM after son found her unresponsive and febrile (104.5). She may have had a similar presentation in the past. In ER: WBC= 8k, Ca++= 6.7 mg%, CK= [address] of head (reviewed): B/L white matter edema? Pt. given Vanco, Ampicillin, ceftriaxone but developed diffuse rash and swelling. CSF: 13 WBC (diff pending); Protein= 79 mg%; Rgy=418 mg% NOW: Awake, alert. Follows commands in Lao and Sinhala Left orbital edema. Probable Nuchal rigidity. Neg Kernigs. Full ken to threat. Full volitional EOM's. No facial. Gag OK Moves all fours well and symmetrically. Depressed reflexes. B/L Babinskis? Grimaces and briskly withdraws all 4's to pinch. IMP: Non-focal exam Fever and lethargy suggesting a meningoencephalitis. CSF is NOT suggestive of a Bacterial picture but is consistent with a viral profile and/or a parameningial focus of infection. If , indeed, this is a recurrent condition consider Dx of "Mollaret's Syndrome." SUGGEST: Give acyclovir for now. I don't think antibiotics are necessary (Patient appears to be highly allergic) but would defer to ID. HSV 1 titres and HSV-1 CSF PCR. Thank you very much, Hernandez Britton MD
[2017-10-09] MEDS ORDERED: PT OWN MED DRAWER 7, Y5N ONE (17:24)
--- NOTE | 2017-10-09 17:57 | PN ---
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 Assessment CSF consistent with viral disease and given history of prior meningitis Herpes Simplex certainly a consideration Plan Agree with addition of Acyclovir 10mg/kg/8hours Quant gold and HIV Viral culture Discussed with resident Jihan SCHAEFFER Problem List - Problems (1) Septic shock Code(s): A41.9 - SEPSIS, UNSPECIFIED ORGANISM; R65.21 - SEVERE SEPSIS WITH SEPTIC SHOCK
[2017-10-09] MEDS: ACYCLOVIR INJECTION 500 MG in DEXTROSE 5%-WATER - 100 ML IVPB SCH (18:09)
[2017-10-09] MEDS: CEFTRIAXONE 2 GM in DEXTROSE 5%-WATER 100 ML IVPB SCH (18:20)
[2017-10-09] MEDS: CHLORHEXIDINE GLUCONATE 4% CLEANSER FOR DECOLONIZATION TP SCH (21:20)
[2017-10-09] MEDS ORDERED: FAMOTIDINE IV 20 MG/12 ML VIAL IVPUSH SCH (22:00)
[2017-10-09] MEDS ORDERED: FAMOTIDINE 20 MG/50 ML IVPB 20 MG/50 ML MG IVPB SCH (22:45)
[2017-10-10] MEDS: methylPREDNISolone NA SUCC 40 MG/1 ML VIAL IVPUSH SCH (01:20)
[2017-10-10] MEDS: ACYCLOVIR INJECTION 500 MG in DEXTROSE 5%-WATER - 100 ML IVPB SCH ×3 (01:20→18:03)
[2017-10-10] MEDS ORDERED: DEXTROSE 5%-WATER 100 ML IVPB ONE ×2 (04:49→15:22)
[2017-10-10] MEDS: CEFTRIAXONE 2 GM in DEXTROSE 5%-WATER 100 ML IVPB SCH ×2 (05:19→18:02)
[2017-10-10] MEDS ORDERED: ACYCLOVIR INJECTION 500 MG in DEXTROSE 5%-WATER - 100 ML IVPB SCH (06:00)
[2017-10-10 06:26] LABS: BASO % 0.1 % (0-2.0); EOS % 0.1 % (0-4.5); HEMATOCRIT 32.1 % (32.4-45.2); HEMOGLOBIN 11.1 GM/dL (10.7-15.3); LYMPH % 8.4 % (8-40); MCH 31.1 pg (25.7-33.7); MCHC 34.7 g/dl (32.0-36.0); MEAN CELL VOLUME 89.7 fl (80-96); MEAN PLT VOLUME 7.6 fl (7.5-11.1); MONO % 1.5 % (3.8-10.2); NEUT % 89.9 % (42.8-82.8); PLATELET COUNT 148 K/MM3 (134-434); RBC 3.58 M/mm3 (3.60-5.2); RDW 13.9 % (11.6-15.6); WHITE BLOOD COUNT 4.9 K/mm3 (4.0-10.0)
[2017-10-10 06:56] LABS: CHLORIDE 118 mmol/L (98-107); POTASSIUM 3.5 mmol/L (3.5-5.1); SODIUM 149 mmol/L (136-145)
[2017-10-10 06:59] LABS: CHOLESTEROL 140 mg/dL (50-200); HDL CHOLESTEROL 30 mg/dL (40-60); TRIGLYCERIDES 139 mg/dL (35-160)
[2017-10-10 07:10] LABS: ALBUMIN 3.1 g/dl (3.4-5.0); ALK PHOS 65 U/L (45-117); ANION GAP 9 (8-16); BILIRUBIN,TOTAL 0.4 mg/dL (0.2-1.0); BLOOD UREA NITROGEN 7 mg/dL (7-18); CALCIUM 7.9 mg/dL (8.5-10.1); CO2 22 mmol/L (21-32); CREATININE 0.9 mg/dL (0.55-1.02); GLUCOSE,RANDOM 179 mg/dL (74-106); LIPASE 54 U/L (73-393); PHOSPHOROUS 2.1 mg/dL (2.5-4.9); SGOT/AST 47 U/L (15-37); SGPT/ALT 27 U/L (12-78); TOT PROT 6.3 g/dl (6.4-8.2)
--- NOTE | 2017-10-10 07:59 | PN ---
Physical Exam: SUBJECTIVE: Patient seen and examined in the ICU. Pt feels better today, at baseline mentation per son. Facial swelling present yesterday, completely resolved today. Afebrile x 24 hrs. Pt endorses pain at Left mandibular angle. Pt denies headache, neck stiffness, chest pain, sob, abdominal pain. No events overnight. OBJECTIVE: Vital Signs Period Temp Pulse Resp BP Sys/Rios Pulse Ox Last 24 Hr 98 F-99.2 F 70-95 12-21 94-139/39-71 100-100 GENERAL: The patient is awake, alert, and oriented, in no acute distress. HEAD: Normal with no signs of trauma. EYES: Extraocular movements intact, sclera anicteric, conjunctiva clear. No ptosis. NECK: Trachea midline, full range of motion, supple. LUNGS: Breath sounds equal, clear to auscultation bilaterally, no wheezes, no crackles, no accessory muscle use. HEART: Regular rate and rhythm, S1, S2 without murmur, rub or gallop. ABDOMEN: Soft, nontender, nondistended, normoactive bowel sounds, no guarding. EXTREMITIES: Warm, well-perfused, no edema. NEUROLOGICAL: Cranial nerves II through XII grossly intact. Normal speech, gait not observed. PSYCH: Normal mood, normal affect. SKIN: Warm, dry, normal turgor, no rashes or lesions noted Laboratory Results - last 24 hr 10/09/17 10/09/17 10/09/17 00:39 05:30 08:00 WBC RBC Hgb Hct MCV MCH MCHC RDW Plt Count MPV Neutrophils % Lymphocytes % Monocytes % Eosinophils % Basophils % Nucleated RBC % Sodium 136 Potassium 3.5 Chloride 108 H Carbon Dioxide 20 L Anion Gap 8 BUN 11 Creatinine 1.0 Creat Clearance w eGFR Random Glucose 172 H Calcium 6.7 L* Phosphorus 2.1 L Magnesium 1.5 L Total Bilirubin AST ALT Alkaline Phosphatase Creatine Kinase 291 H 424 H Creatine Kinase Index 1.4 1.8 CK-MB (CK-2) 4.177 H 7.663 H Troponin I 0.30 H 0.21 H Total Protein Albumin Triglycerides Cholesterol Total LDL Cholesterol HDL Cholesterol Total Amylase Lipase Vitamin B12 379 Cancelled Cancelled CSF Appearance CSF Color CSF WBC CSF RBC CSF Neutrophils CSF Lymphocytes CSF Monocytes CSF Eosinophils CSF Basophils CSF Macrophages CSF Plasma Cells CSF Diff Comment CSF Comment CSF Glucose CSF Total Protein RPR Titer HIV 1&2 Antibody Screen HIV P24 Antigen 10/09/17 10/09/17 10/09/17 08:00 14:00 14:00 WBC RBC Hgb Hct MCV MCH MCHC RDW Plt Count MPV Neutrophils % Lymphocytes % Monocytes % Eosinophils % Basophils % Nucleated RBC % Sodium Potassium Chloride Carbon Dioxide Anion Gap BUN Creatinine Creat Clearance w eGFR Random Glucose Calcium Phosphorus Magnesium Total Bilirubin AST ALT Alkaline Phosphatase Creatine Kinase Creatine Kinase Index CK-MB (CK-2) Troponin I Total Protein Albumin Triglycerides Cholesterol Total LDL Cholesterol HDL Cholesterol Total Amylase Lipase Vitamin B12 CSF Appearance Clear CSF Color Colorless CSF WBC 13 CSF RBC 3 CSF Neutrophils 0 CSF Lymphocytes 98 CSF Monocytes 0 CSF Eosinophils 0 CSF Basophils 0 CSF Macrophages 2 CSF Plasma Cells 0 CSF Diff Comment No Result Required. CSF Comment No Result Required. CSF Glucose 112 H Cancelled CSF Total Protein 79 H RPR Titer Nonreactive HIV 1&2 Antibody Screen HIV P24 Antigen 10/09/17 10/09/17 10/10/17 14:00 18:30 05:30 WBC RBC Hgb Hct MCV MCH MCHC RDW Plt Count MPV Neutrophils % Lymphocytes % Monocytes % Eosinophils % Basophils % Nucleated RBC % Sodium Potassium Chloride Carbon Dioxide Anion Gap BUN Creatinine Creat Clearance w eGFR Random Glucose Calcium Phosphorus Magnesium Total Bilirubin AST ALT Alkaline Phosphatase Creatine Kinase Creatine Kinase Index CK-MB (CK-2) Troponin I Total Protein Albumin Triglycerides Cholesterol Total LDL Cholesterol HDL Cholesterol Total Amylase 26 Lipase Vitamin B12 CSF Appearance CSF Color CSF WBC CSF RBC CSF Neutrophils CSF Lymphocytes CSF Monocytes CSF Eosinophils CSF Basophils CSF Macrophages CSF Plasma Cells CSF Diff Comment CSF Comment CSF Glucose CSF Total Protein Cancelled RPR Titer HIV 1&2 Antibody Screen Negative HIV P24 Antigen Negative 10/10/17 10/10/17 10/10/17 05:30 05:30 05:30 WBC 4.9 D RBC 3.58 L Hgb 11.1 Hct 32.1 L MCV 89.7 MCH 31.1 MCHC 34.7 RDW 13.9 Plt Count 148 D MPV 7.6 Neutrophils % 89.9 H D Lymphocytes % 8.4 D Monocytes % 1.5 L Eosinophils % 0.1 D Basophils % 0.1 Nucleated RBC % 0 Sodium 149 H Potassium 3.5 Chloride 118 H Carbon Dioxide 22 Anion Gap 9 BUN 7 Creatinine 0.9 Creat Clearance w eGFR > 60 Random Glucose 179 H Calcium 7.9 L Phosphorus 2.1 L Magnesium 2.0 Total Bilirubin 0.4 D AST 47 H ALT 27 Alkaline Phosphatase 65 Creatine Kinase 357 H Creatine Kinase Index CK-MB (CK-2) Troponin I Total Protein 6.3 L Albumin 3.1 L Triglycerides Cholesterol Total LDL Cholesterol HDL Cholesterol Total Amylase Lipase 54 L Vitamin B12 CSF Appearance CSF Color CSF WBC CSF RBC CSF Neutrophils CSF Lymphocytes CSF Monocytes CSF Eosinophils CSF Basophils CSF Macrophages CSF Plasma Cells CSF Diff Comment CSF Comment CSF Glucose CSF Total Protein RPR Titer HIV 1&2 Antibody Screen HIV P24 Antigen 10/10/17 05:30 WBC RBC Hgb Hct MCV MCH MCHC RDW Plt Count MPV Neutrophils % Lymphocytes % Monocytes % Eosinophils % Basophils % Nucleated RBC % Sodium Potassium Chloride Carbon Dioxide Anion Gap BUN Creatinine Creat Clearance w eGFR Random Glucose Calcium Phosphorus Magnesium Total Bilirubin AST ALT Alkaline Phosphatase Creatine Kinase Creatine Kinase Index CK-MB (CK-2) Troponin I Total Protein Albumin Triglycerides 139 Cholesterol 140 Total LDL Cholesterol 85 HDL Cholesterol 30 L Total Amylase Lipase Vitamin B12 CSF Appearance CSF Color CSF WBC CSF RBC CSF Neutrophils CSF Lymphocytes CSF Monocytes CSF Eosinophils CSF Basophils CSF Macrophages CSF Plasma Cells CSF Diff Comment CSF Comment CSF Glucose CSF Total Protein RPR Titer HIV 1&2 Antibody Screen HIV P24 Antigen Active Medications Generic Name Dose Route Start Last Admin Trade Name Freq PRN Reason Stop Dose Admin Acetaminophen 650 mg 10/08/17 20:15 10/09/17 01:48 Tylenol - PO 650 mg Q4H PRN Administration FEVER Acetaminophen 1,000 mg 10/09/17 02:09 10/09/17 16:32 Ofirmev Injection - IVPB 1,000 mg Q8H PRN Administration FEVER Chlorhexidine Gluconate 1 applic 10/08/17 22:00 10/09/17 21:20 Hibiclens For Decolonization - TP 1 applic HS RYAN Administration Diphenhydramine HCl 25 mg 10/09/17 14:45 10/10/17 04:57 Benadryl Injection - IVPUSH 25 mg Q6H RYAN Administration Norepinephrine Bitartrate 4, 500 mls @ 37.5 mls/hr 10/08/17 19:15 10/09/17 20 :05 000 mcg/ Dextrose IV 12 mcg/min TITR RYAN 90 mls/hr Administration Protocol 5 MCG/MIN Sodium Chloride 1,000 mls @ 125 mls/hr 10/08/17 20:00 10/09/17 20:05 Normal Saline - IV 125 mls/hr ASDIR RYAN Administration Vancomycin HCl 750 mg/ 250 mls @ 250 mls/hr 10/09/17 09:00 10/09/17 21:19 Dextrose IVPB 250 mls/hr BID@0900,2100 RYAN Administration Acyclovir 500 mg/ Dextrose 110 mls @ 110 mls/hr 10/09/17 18:00 10/10/17 01:20 IVPB 110 mls/hr Q8H-IV RYAN Administration Ceftriaxone Sodium 2 gm/ 100 mls @ 200 mls/hr 10/09/17 18:15 10/10/17 05:19 Dextrose IVPB 200 mls/hr Q12H RYAN Administration Protocol Famotidine/Sodium Chloride 20 mg in 50 mls @ 100 mls/hr 10/09/17 22:45 Pepcid 20 Mg Premixed Ivpb - IVPB BID RAYN Methylprednisolone Sodium Succinate 40 mg 10/09/17 14:45 10/10/17 01:20 Solu-Medrol - IVPUSH 40 mg Q8H-IV RYAN Administration Mupirocin 1 applic 10/08/17 22:00 10/09/17 21:20 Bactroban Ointment (For Decolonization) - NS 10/13/17 21:59 1 applic BID RYAN Administration Ondansetron HCl 4 mg 10/09/17 08:51 Zofran Injection IVPUSH Q6H PRN NAUSEA AND/OR VOMITING Pantoprazole Sodium 40 mg 10/09/17 10:00 10/09/17 09:34 Protonix - PO 40 mg DAILY RYAN Administration ASSESSMENT/PLAN: 62F with PMH of hypothyoidism, presented to hospital with lethargy/fever/ vomiting, admitted for septic shock. # septic shock 2/2 viral meningitis - continue Acyclovir - continue IV Vancomycin and IV Ceftriaxone and droplet precautions pending results of cultures tomorrow - f/u CSF cultures, including West Nile - f/u brain MRI - pt afebrile x 24 hrs - HIV (-) - pressors being tapered down - Neurology (Dr. Britton) recs appreciated Plan discussed with Dr. Bobo. Visit type - Emergency Visit Emergency Visit: Yes ED Registration Date: 10/08/17 Care time: The patient presented to the Emergency Department on the above date and was hospitalized for further evaluation of their emergent condition. - New Patient This patient is new to me today: Yes Date on this admission: 10/10/17 - Critical Care Critical Care patient: No
--- NOTE | 2017-10-10 08:05 | PN ---
Progress Note, Physician Chief Complaint: ID Marked improvement today Acyclovir Ceftriaxone Vancomycin Alert and able to answer questions correctly Complains of pain in her ear but not the neck area which is supple - Current Medication List Current Medications: Active Medications Acetaminophen (Tylenol -) 650 mg PO Q4H PRN PRN Reason: FEVER Last Admin: 10/09/17 01:48 Dose: 650 mg Acetaminophen (Ofirmev Injection -) 1,000 mg IVPB Q8H PRN PRN Reason: FEVER Last Admin: 10/09/17 16:32 Dose: 1,000 mg Chlorhexidine Gluconate (Hibiclens For Decolonization -) 1 applic TP HS RYAN Last Admin: 10/09/17 21:20 Dose: 1 applic Diphenhydramine HCl (Benadryl Injection -) 25 mg IVPUSH Q6H RYAN Last Admin: 10/10/17 04:57 Dose: 25 mg Norepinephrine Bitartrate 4, (000 mcg/ Dextrose) 500 mls @ 37.5 mls/hr IV TITR RYAN; Protocol Last Admin: 10/09/17 20:05 Dose: 12 mcg/min, 90 mls/hr Sodium Chloride (Normal Saline -) 1,000 mls @ 125 mls/hr IV ASDIR RYAN Last Admin: 10/09/17 20:05 Dose: 125 mls/hr Vancomycin HCl 750 mg/ (Dextrose) 250 mls @ 250 mls/hr IVPB BID@0900,2100 RYAN Last Admin: 10/09/17 21:19 Dose: 250 mls/hr Acyclovir 500 mg/ Dextrose 110 mls @ 110 mls/hr IVPB Q8H-IV RYAN Last Admin: 10/10/17 01:20 Dose: 110 mls/hr Ceftriaxone Sodium 2 gm/ (Dextrose) 100 mls @ 200 mls/hr IVPB Q12H RYAN; Protocol Last Admin: 10/10/17 05:19 Dose: 200 mls/hr Famotidine/Sodium Chloride (Pepcid 20 Mg Premixed Ivpb -) 20 mg in 50 mls @ 100 mls/hr IVPB BID RYAN Methylprednisolone Sodium Succinate (Solu-Medrol -) 40 mg IVPUSH Q8H-IV RYAN Last Admin: 10/10/17 01:20 Dose: 40 mg Mupirocin (Bactroban Ointment (For Decolonization) -) 1 applic NS BID [facility] Stop: 10/13/17 21:59 Last Admin: 10/09/17 21:20 Dose: 1 applic Ondansetron HCl (Zofran Injection) 4 mg IVPUSH Q6H PRN PRN Reason: NAUSEA AND/OR VOMITING Pantoprazole Sodium (Protonix -) 40 mg PO DAILY [facility] Last Admin: 10/09/17 09:34 Dose: 40 mg - Objective Vital Signs: Vital Signs Temperature 98 F 10/10/17 02:00 Pulse Rate 81 10/10/17 06:00 Respiratory Rate 18 10/10/17 06:00 Blood Pressure 131/64 10/10/17 06:00 O2 Sat by Pulse Oximetry (%) 100 10/09/17 21:00 Constitutional: Yes: Well Nourished, No Distress HENT: Yes: WNL, Atraumatic Neck: Yes: WNL, Supple Cardiovascular: Yes: S1, S2 Respiratory: Yes: WNL, Regular, CTA Bilaterally Gastrointestinal: Yes: WNL, Normal Bowel Sounds, Soft. No: Tenderness, Tenderness, Epigastrium Edema: No Labs: CBC, BMP 10/10/17 05:30 10/10/17 05:30 INR, PTT INR 1.23 (0.82-1.09) H 10/08/17 16:40 Problem List - Problems (1) Septic shock Code(s): A41.9 - SEPSIS, UNSPECIFIED ORGANISM; R65.21 - SEVERE SEPSIS WITH SEPTIC SHOCK Assessment/Plan Microbiology 10/09/17 14:00 Cerebral Spinal Fluid - Lumbar Puncture Gram Stain - Final 10/09/17 14:16 Nasopharyngeal Swab Respiratory Virus (PCR) - Preliminary 10/09/17 14:00 Cerebral Spinal Fluid - Lumbar Puncture Viral Culture - Preliminary 10/09/17 14:00 Cerebral Spinal Fluid - Lumbar Puncture Mycobacteria (PCR) - Preliminary 10/09/17 14:00 Cerebral Spinal Fluid - Lumbar Puncture Cryptococcal Antigen - Preliminary 10/08/17 16:48 Blood - Peripheral Venous Blood Culture - Preliminary NO GROWTH OBTAINED AFTER 24 HOURS, INCUBATION TO CONTINUE FOR 4 DAYS. 10/08/17 16:48 Blood - Peripheral Venous Blood Culture - Preliminary NO GROWTH OBTAINED AFTER 24 HOURS, INCUBATION TO CONTINUE FOR 4 DAYS. Laboratory Tests 10/09/17 10/09/17 10/09/17 08:00 14:00 14:00 CSF WBC 13 CSF RBC 3 CSF Lymphocytes 98 CSF Glucose 112 H CSF Total Protein 79 H RPR Titer Nonreactive Lyme IgG Ab Interpret Pending Lyme IgM Ab Index Pending HSV I DNA Quant (PCR) HSV II DNA Quant (PCR) HIV 1&2 Antibody Screen HIV P24 Antigen H.influenzae Type B Ag N. meningitidis Antigen Group B Strep Antigen S. pneumoniae Antigen TB Test (QFT) 10/09/17 10/09/17 10/09/17 14:00 14:00 18:30 CSF WBC CSF RBC CSF Lymphocytes CSF Glucose CSF Total Protein RPR Titer Lyme IgG Ab Interpret Lyme IgM Ab Index HSV I DNA Quant (PCR) Pending HSV II DNA Quant (PCR) Pending HIV 1&2 Antibody Screen Negative HIV P24 Antigen Negative H.influenzae Type B Ag Pending N. meningitidis Antigen Pending Group B Strep Antigen Pending S. pneumoniae Antigen Pending TB Test (QFT) 10/09/17 18:30 CSF WBC CSF RBC CSF Lymphocytes CSF Glucose CSF Total Protein RPR Titer Lyme IgG Ab Interpret Lyme IgM Ab Index HSV I DNA Quant (PCR) HSV II DNA Quant (PCR) HIV 1&2 Antibody Screen HIV P24 Antigen H.influenzae Type B Ag N. meningitidis Antigen Group B Strep Antigen S. pneumoniae Antigen TB Test (QFT) Pending Assessment Viral syndrome CSF suggests menigneal involvement appears to be viral type profile Patient and family now denies prior history of meningtitis. She is not encephalopathic OTher virus considered Coxackie ECHO less likely West Nile Plan Serology pending Will stop antibiotic and droplet isolation tomorrow if cultures no growth which I anticipate Discussed with [facility] and viral cultures sent will take time Make sure we get a good look in the ears Chen Bobo MD
[2017-10-10] MEDS ORDERED: PT OWN MED DRAWER 7, Y5N ONE (09:20)
[2017-10-10] MEDS: VANCOMYCIN 750 MG in DEXTROSE 5%-WATER - 250 ML IVPB SCH ×2 (09:47→22:52)
[2017-10-10] MEDS: PANTOPRAZOLE 40 MG TABLET (FP) PO SCH (09:47)
[2017-10-10] MEDS: MUPIROCIN 2% TOPICAL OINTMENT FOR DECOLONIZATION NS SCH (09:48)
[2017-10-10] MEDS ORDERED: predniSONE 20 MG TABLET (UD) PO SCH (10:00)
--- NOTE | 2017-10-10 10:29 | PN ---
Progress Note, Physician Chief Complaint: Pt alert; follows all commands; moves all extremities on request; + mild trembling of arms that is reportedly new this admission. Pt's son is at bedside. History of Present Illness: Ms. Sanders is a 62 year woman with pmh of hypothyroidism and lacunar infarct CVA , who presents for evaluation of non-responsiveness and fever. As per son who is with her she was largely non-responsive when he went to check on her and extremely sweaty. In the ER she was hypotensive and febrile and was treated as a case of septic shock. She got IV NS, was started on levophed and sent to the ICU. There was a slight improvement in her mentation and her BP has improved. - Current Medication List Current Medications: Active Medications Acetaminophen (Ofirmev Injection -) 1,000 mg IVPB Q8H PRN PRN Reason: FEVER Last Admin: 10/09/17 16:32 Dose: 1,000 mg Chlorhexidine Gluconate (Hibiclens For Decolonization -) 1 applic TP HS RYAN Last Admin: 10/09/17 21:20 Dose: 1 applic Diphenhydramine HCl (Benadryl Injection -) 25 mg IVPUSH Q6H PRN PRN Reason: FOR ITCHING Norepinephrine Bitartrate 4, (000 mcg/ Dextrose) 500 mls @ 37.5 mls/hr IV TITR RYAN; Protocol Last Admin: 10/09/17 20:05 Dose: 12 mcg/min, 90 mls/hr Sodium Chloride (Normal Saline -) 1,000 mls @ 125 mls/hr IV ASDIR RYAN Last Admin: 10/09/17 20:05 Dose: 125 mls/hr Vancomycin HCl 750 mg/ (Dextrose) 250 mls @ 250 mls/hr IVPB BID@0900,2100 RYAN Last Admin: 10/10/17 09:47 Dose: 250 mls/hr Acyclovir 500 mg/ Dextrose 110 mls @ 110 mls/hr IVPB Q8H-IV RYAN Last Admin: 10/10/17 01:20 Dose: 110 mls/hr Ceftriaxone Sodium 2 gm/ (Dextrose) 100 mls @ 200 mls/hr IVPB Q12H RYAN; Protocol Last Admin: 10/10/17 05:19 Dose: 200 mls/hr Famotidine/Sodium Chloride (Pepcid 20 Mg Premixed Ivpb -) 20 mg in 50 mls @ 100 mls/hr IVPB BID [facility] Last Admin: 10/10/17 09:48 Dose: 100 mls/hr Mupirocin (Bactroban Ointment (For Decolonization) -) 1 applic NS BID [facility] Stop: 10/13/17 21:59 Last Admin: 10/10/17 09:48 Dose: 1 applic Ondansetron HCl (Zofran Injection) 4 mg IVPUSH Q6H PRN PRN Reason: NAUSEA AND/OR VOMITING Pantoprazole Sodium (Protonix -) 40 mg PO DAILY [facility] Last Admin: 10/10/17 09:47 Dose: 40 mg Prednisone (Deltasone -) 40 mg PO DAILY [facility] Last Admin: 10/10/17 09:47 Dose: 40 mg - Objective Vital Signs: Vital Signs Temperature 98.0 F 10/10/17 07:00 Pulse Rate 84 10/10/17 09:00 Respiratory Rate 14 10/10/17 09:00 Blood Pressure 120/53 10/10/17 09:00 O2 Sat by Pulse Oximetry (%) 100 10/09/17 21:00 Constitutional: Yes: Well Nourished Eyes: Yes: WNL HENT: Yes: WNL Neck: Yes: WNL Cardiovascular: Yes: Regular Rate and Rhythm Respiratory: Yes: Regular Gastrointestinal: Yes: Soft ...Rectal Exam: Yes: Deferred Genitourinary: No: Anuria Breast(s): Yes: WNL Musculoskeletal: Yes: Muscle Weakness Extremities: Yes: Other (mild trembling of hands when outstretched) Peripheral Pulses WNL: Yes Integumentary: Yes: WNL Neurological: Yes: Alert, Oriented, Weakness Psychiatric: Yes: WNL Labs: CBC, BMP 10/10/17 05:30 10/10/17 05:30 INR, PTT INR 1.23 (0.82-1.09) H 10/08/17 16:40 Abnormal Lab Results 10/10/17 10/10/17 10/11/17 05:30 10:55 06:40 RBC 2.97 L Hgb 9.3 L D Hct 26.8 L D Sodium 148 H Chloride Anion Gap Creatinine Random Glucose Calcium CK-MB (CK-2) 12.058 H Total Protein Albumin 10/11/17 06:40 RBC Hgb Hct Sodium Chloride 114 H Anion Gap 7 L Creatinine 1.1 H Random Glucose 169 H Calcium 7.8 L CK-MB (CK-2) Total Protein 5.6 L Albumin 2.9 L Problem List - Problems (1) Septic shock Assessment/Plan: Now off vasopressors; BP holding. Maintain hydration. Orthostatic vital signs. On antivirals and antibiotics. ECHO: normal LVEF; no significant valvular abnormalities. Code(s): A41.9 - SEPSIS, UNSPECIFIED ORGANISM; R65.21 - SEVERE SEPSIS WITH SEPTIC SHOCK (2) Viral meningitis, unspecified Assessment/Plan: ID workup in progress; on antibirals. Antibiotics may be stopped soon. Code(s): A87.9 - VIRAL MENINGITIS, UNSPECIFIED
--- NOTE | 2017-10-10 11:23 | PN ---
Teaching Attending Note Name of Resident: Marcelle Hodge ATTENDING PHYSICIAN STATEMENT I saw and evaluated the patient. I reviewed the resident's note and discussed the case with the resident. I agree with the resident's findings and plan as documented. SUBJECTIVE: No fever or chills . feels much better today. has pain in L sided neck that started last night. denies any pain in ears. no pain in throat , no difficulty swallowing and no SOB. family think that she is at her base line mentation . OBJECTIVE: awake, alert , cooperative L facial swelling is much less this am , with no lip edema , nl tongue , slight erythema in uvula but no edema .L eye lid edema improved TTP on the anterior aspect of the sternomastoid muscle CV: RRR, no MRG Lungs: CTAB Ext: no edema or erythema . no rash. Neuro: EOMI, round equal pupils , reactive to light. nof acial droop. uvula and tongue at mid nitesh e. facial sensation to light touch NL. Strength : shoulder shrug 5/5 b/l. biceps /triceps 5/5 . not cooperative with deltoid exam. nl hand diabetes physician b/l LE : hip flexion 5/5 , ankle dorsiflexion and plantar flexion 5/5 . unable to assess knee flexion and extension Nl sensation to light touch 2+ biceps , 1+ BR, and unable to assess knee jerk reflexes Nl nose to finger. tremor in hands especially L ASSESSMENT AND PLAN: 62 y/o lady with h/o hypothyroidism, and CVA who presented with AMS and was found to have fevers and shock requiring pressors 1- Septic Shock:BP improved , on lower dose of levophed now. - taper levophed off - cont IVF - follow blood cx 2- AMS, encephalopathy due to viral meningitis /cerebritis Mental status improved . - cont acyclovir /IVF hydration - cont Abx pending cultures and MRI - due to L neck pain and tenderness along with CT findings, will obtain MRA of neck to r/o vessel thrombosis - RPR non reactive . B12 > 300 . HIV neg. 3-Anioedema : improved - switch to po predniosne - cont benadryl and H2 blockers 4- Elevated troponins: likely demand ischemia . Echo reviewed. trop trended down 5- H/o Hypothyroidism: will confirm with PCP . not on any synthroid at home. dc synthroid 6- hypernatremia: ? dehydration . will repeat Na as it increased quickly from yesterdays' level. if still the same, will change IVF to 1/2 NS 7- DVT PX . heparin SQ ASSESSMENT AND PLAN:
[2017-10-10] MEDS ORDERED: methylPREDNISolone NA SUCC 40 MG/1 ML VIAL IVPUSH ONE (12:15)
[2017-10-10] MEDS ORDERED: SODIUM CHLORIDE 0.45% 1,000 ML IV SCH (12:15)
[2017-10-10] MEDS ORDERED: SODIUM CHLORIDE 1,000 ML IV SCH (12:17)
[2017-10-10] MEDS ORDERED: CALCIUM ACETATE 667 MG CAPSULE (FP) PO ONE (12:30)
--- NOTE | 2017-10-10 12:31 | PN ---
Teaching Attending Note Name of Resident: Thiago Flores ATTENDING PHYSICIAN STATEMENT I saw and evaluated the patient. I reviewed the resident's note and discussed the case with the resident. I agree with the resident's findings and plan as documented. SUBJECTIVE: Pt seen and examined in the ICU. Mental status much improved. Fever curve down. LP done yesterday showing 10 WBC with lymphocyte predominance. OBJECTIVE: Vital Signs Period Temp Pulse Resp BP Sys/Rios Pulse Ox Last 24 Hr 98 F-98.7 F 80-95 12-21 105-139/47-71 100-100 Intake & Output 10/07/17 10/08/17 10/09/17 10/10/17 23:59 23:59 23:59 23:59 Intake Total 4900 1110 Output Total 200 5050 1800 Balance -200 -150 -690 Weight 43.545 kg 43.545 kg Gen: NAD at rest Heart: RRR Lung: decreased breath sounds at the bases Abd: soft, nontender Ext: no edema CBC, BMP 10/10/17 05:30 10/10/17 10:55 Active Medications Acetaminophen (Ofirmev Injection -) 1,000 mg IVPB Q8H PRN PRN Reason: FEVER Last Admin: 10/09/17 16:32 Dose: 1,000 mg Calcium Acetate (Phoslo -) 667 mg PO ONCE ONE Stop: 10/10/17 12:31 Chlorhexidine Gluconate (Hibiclens For Decolonization -) 1 applic TP HS RYAN Last Admin: 10/09/17 21:20 Dose: 1 applic Diphenhydramine HCl (Benadryl Injection -) 25 mg IVPUSH Q6H PRN PRN Reason: FOR ITCHING Heparin Sodium (Porcine) (Heparin -) 5,000 unit SQ TID RYAN Norepinephrine Bitartrate 4, (000 mcg/ Dextrose) 500 mls @ 37.5 mls/hr IV TITR RYAN; Protocol Last Admin: 10/09/17 20:05 Dose: 12 mcg/min, 90 mls/hr Vancomycin HCl 750 mg/ (Dextrose) 250 mls @ 250 mls/hr IVPB BID@0900,2100 RYAN Last Admin: 10/10/17 09:47 Dose: 250 mls/hr Acyclovir 500 mg/ Dextrose 110 mls @ 110 mls/hr IVPB Q8H-IV RYAN Last Admin: 10/10/17 11:00 Dose: 110 mls/hr Ceftriaxone Sodium 2 gm/ (Dextrose) 100 mls @ 200 mls/hr IVPB Q12H RYAN; Protocol Last Admin: 10/10/17 05:19 Dose: 200 mls/hr Famotidine/Sodium Chloride (Pepcid 20 Mg Premixed Ivpb -) 20 mg in 50 mls @ 100 mls/hr IVPB BID RYAN Last Admin: 10/10/17 09:48 Dose: 100 mls/hr Sodium Chloride (1/2 Normal Saline) 1,000 mls @ 75 mls/hr IV ASDIR RYAN Stop: 10/11/17 01:34 Sodium Chloride (Normal Saline -) 1,000 mls @ 125 mls/hr IV ASDIR RYAN Mupirocin (Bactroban Ointment (For Decolonization) -) 1 applic NS BID [facility] Stop: 10/13/17 21:59 Last Admin: 10/10/17 09:48 Dose: 1 applic Ondansetron HCl (Zofran Injection) 4 mg IVPUSH Q6H PRN PRN Reason: NAUSEA AND/OR VOMITING Pantoprazole Sodium (Protonix -) 40 mg PO DAILY [facility] Last Admin: 10/10/17 09:47 Dose: 40 mg Prednisone (Deltasone -) 40 mg PO DAILY [facility] Last Admin: 10/10/17 09:47 Dose: 40 mg ASSESSMENT AND PLAN: Altered Mental Status improved Septic Shock r/o Viral Meningitis/Encephalitis Lactic Acidosis improved +Troponins likely Demand Ischemia Acute Kidney Injury improved Hypothyroidism - continue antibiotics per ID - f/u CSF cultures - MRI brain - pressors tapered off, maintain MAP >65 - monitor urine output, creatinine - aspiration precautions - DVT prophylaxis - can transfer to floor critical care time spent in reviewing chart, evaluating patient and formulating plan 35 min
[2017-10-10] MEDS: HEPARIN NA (PORCINE) 5,000 UNITS/ML 1ML VIAL SQ SCH ×2 (13:21→21:49)
--- NOTE | 2017-10-10 13:59 | PN ---
Physical Exam: SUBJECTIVE: Patient seen and examined at bedside. Overnight, no acute events; pt maintaining CVP. Today, pt levo gtt has been titrated down to 2mcg. C/o shakiness 2/2 hunger as per son. Otherwise without LANE, fever, chills, SOB, chest pain or pressure, or changes in urinary or bowel function. OBJECTIVE: Vital Signs Period Temp Pulse Resp BP Sys/Rios Pulse Ox Last 24 Hr 98 F-98.7 F 80-95 12-21 97-136/47-71 100-100 GENERAL: The patient is in good spirits. resting comfortably. Family at bedside. awake, alert, and fully oriented, in no acute distress. HEAD: Normal with no signs of trauma. Without facial asymmetry or swelling today EYES: PERRL, extraocular movements intact, sclera anicteric, conjunctiva clear. ENT: Ears normal, nares patent, oropharynx clear without exudates, dry mucous membranes. +poor dentition NECK: Trachea midline, supple. LUNGS: +rhonchi appreciated RLL, however may have been 2/2 pt inability to understand instructions. without crackles or wheezes. no accessory m usage. HEART: Regular rate and rhythm, S1, S2 without murmur, rub or gallop. ABDOMEN: Soft, nontender, nondistended, normoactive bowel sounds, no guarding, no rebound EXTREMITIES: 2+ dp, pt pulses, warm, well-perfused, no edema. NEUROLOGICAL: Cranial nerves II through XII grossly intact. Normal speech. No facial asymmetry. Uvula unable to be visualized. 5/5 motor strength in upper and lower extremities, sensation intact. 2+ patellar reflexes. +exacerbated intention tremor upper extremities. AAOx3 PSYCH: Normal mood, normal affect. SKIN: Warm, dry, normal turgor Laboratory Results - last 24 hr 10/09/17 10/09/17 10/10/17 14:00 18:30 05:30 Sodium 149 H Phosphorus 2.1 L CSF Glucose 112 H CSF Total Protein 79 H HIV 1&2 Antibody Screen Negative HIV P24 Antigen Negative 10/10/17 10/10/17 05:30 10:55 WBC 4.9 D Hgb 11.1 Hct 32.1 L Plt Count 148 D Sodium 148 H Active Medications Generic Name Dose Route Start Last Admin Trade Name Freq PRN Reason Stop Dose Admin Acetaminophen 1,000 mg 10/09/17 02:09 10/09/17 16:32 Ofirmev Injection - IVPB 1,000 mg Q8H PRN Administration FEVER Chlorhexidine Gluconate 1 applic 10/08/17 22:00 10/09/17 21:20 Hibiclens For Decolonization - TP 1 applic HS RYAN Administration Diphenhydramine HCl 25 mg 10/10/17 08:15 Benadryl Injection - IVPUSH Q6H PRN FOR ITCHING Heparin Sodium (Porcine) 5,000 unit 10/10/17 14:00 10/10/17 13:21 Heparin - SQ 5,000 unit TID RYAN Administration Norepinephrine Bitartrate 4, 500 mls @ 37.5 mls/hr 10/08/17 19:15 10/09/17 20 :05 000 mcg/ Dextrose IV 12 mcg/min TITR RYAN 90 mls/hr Administration Protocol 5 MCG/MIN Vancomycin HCl 750 mg/ 250 mls @ 250 mls/hr 10/09/17 09:00 10/10/17 09:47 Dextrose IVPB 250 mls/hr BID@0900,2100 RYNA Administration Acyclovir 500 mg/ Dextrose 110 mls @ 110 mls/hr 10/09/17 18:00 10/10/17 11:00 IVPB 110 mls/hr Q8H-IV RYAN Administration Ceftriaxone Sodium 2 gm/ 100 mls @ 200 mls/hr 10/09/17 18:15 10/10/17 05:19 Dextrose IVPB 200 mls/hr Q12H RYAN Administration Protocol Famotidine/Sodium Chloride 20 mg in 50 mls @ 100 mls/hr 10/09/17 22:45 09:48 Pepcid 20 Mg Premixed Ivpb - IVPB 100 mls/hr BID RYAN Administration Sodium Chloride 1,000 mls @ 75 mls/hr 10/10/17 12:15 10/10/17 13:14 1/2 Normal Saline IV 10/11/17 01:34 75 mls/hr ASDIR RYAN Administration Sodium Chloride 1,000 mls @ 125 mls/hr 10/10/17 12:17 Normal Saline - IV ASDIR RYAN Mupirocin 1 applic 10/08/17 22:00 10/10/17 09:48 Bactroban Ointment (For Decolonization) - NS 10/13/17 21:59 1 applic BID RYAN Administration Ondansetron HCl 4 mg 10/09/17 08:51 Zofran Injection IVPUSH Q6H PRN NAUSEA AND/OR VOMITING Pantoprazole Sodium 40 mg 10/09/17 10:00 10/10/17 09:47 Protonix - PO 40 mg DAILY RYAN Administration Prednisone 40 mg 10/10/17 10:00 10/10/17 09:47 Deltasone - PO 40 mg DAILY RYAN Administration Microbiology 10/09/17 14:00 Cerebral Spinal Fluid - Lumbar Puncture Gram Stain - Final 10/08/17 16:48 Urine - Urine Alfonso Urine Culture - Final NO GROWTH OBTAINED 10/09/17 14:16 Nasopharyngeal Swab Respiratory Virus (PCR) - Preliminary 10/09/17 14:00 Cerebral Spinal Fluid - Lumbar Puncture Viral Culture - Preliminary 10/09/17 14:00 Cerebral Spinal Fluid - Lumbar Puncture Mycobacteria (PCR) - Preliminary 10/09/17 14:00 Cerebral Spinal Fluid - Lumbar Puncture Cryptococcal Antigen - Preliminary 10/09/17 14:00 Cerebral Spinal Fluid - Lumbar Puncture CSF Culture - Preliminary 10/08/17 16:48 Blood - Peripheral Venous Blood Culture - Preliminary NO GROWTH OBTAINED AFTER 24 HOURS, INCUBATION TO CONTINUE FOR 4 DAYS. 10/08/17 16:48 Blood - Peripheral Venous Blood Culture - Preliminary NO GROWTH OBTAINED AFTER 24 HOURS, INCUBATION TO CONTINUE FOR 4 DAYS. Imaging -10/08/17: CXR (series of three): line placement; image 1: no acute pathology. repeat: without pneumothorax. additional imaging: no obvious infiltrate or pleural effusion, minimal pleural thickening along the horizontal fissure -10/09/17: Abd/Pelvis CT w/o contrast: small, b/l pleural effusions with atelectatic changes involving the lower lobes. additional areas of atelectasis in both lungs with scattered nodularity, R apical pleural thickening and faint groundglass opacification. these changes may be chronic in nature. no evidence of acute consolidation. trace ascites in lower abdomen. distended urinary bladder. no bony abnormalities. -10/09/17: Head CT: moderate-sized faint low-attenuation density in the R frontal lobe at the level of gregory radiata and centrum semiovale is highly suspicious for an acute/subacute infarct for which follow up CT or MRI of brain is recommended. no acute intracranial hemorrhage is seen. moderate soft tissue swelling over left side of head. -10/09/17: GB U/S: technically limited exam 2/2 portable technique and body habitus. moderate GB distension is presumably physiologic. no evidence of cholelithiasis. no definite evidence of acute cholecystitis. trace pericholecystic fluid is nonspecific. no definite intrahepatic or extrahepatic bile duct dilation. -10/09/17: ECHO: EF 69.1%, normal LV EF, moderate TR, RVSP elevated at 40-50 mmHg , trace to mild MR, mild RI. -10/09/17: Carotid doppler study: right side could not be visualized d/t overlying bandage. moderate intimal thickening in the mid and distal common casrotid artery up to the bifurcation, without evidence of hemodynamically significant stenosis bilaterally. ASSESSMENT/PLAN: 62 y/o [place] F with hx of hypothyroidism, who was brought to ED by son after he found her unresponsive and febrile in her room. Pt found to be in septic shock. #Septic shock likely 2/2 [employer] infection -pt clinically appears improved; less lethargic -decreased need for pressor support; off dopa gtt. 2mcg levo gtt titrated down -titrate to keep MAP>65 -watch fever curve -CSF: suggests viral etiology; lymphocyte predominant. with elev protein -Continue rocephin 2g IVPB qd, vanco 750 mg IVPB qd (Day2) -allergic to ampicillin- angioedema -Started on acyclovir 500mg IVPB q8h (Day2) -will continue abx in case of abscess; will follow result of brain MRI -F/u CSF cx, blood cx (-) , ucx- pending -Follow HSV titers #R/o CVA -Head CT: r/o acute vs. subacute frontal infarct -F/u Brain MRI - importance d/w radiology -if stroke, will need ASA, statin -speech and swallow eval when able -Neuro on board- Dr. Britton -F/u B12, RPR, HIV testing #Angioedema likely 2/2 abx -Likely from ampicillin -monitor airway -received IV medrol 125 x1, Benadryl -continue benadryl 25mg IVP q6h -Prednisone 40mg PO qd -Famotidine 20mg IVPB BID #Hypernatremia -Pt with initial Na 149, repeat 148 -free water deficit approx 0.5L -will correct with 1/2 NS 75 cc/hr -1 bag -avoid overcorrection; no more than 6-8 mEq over 24hrs #Bladder distension -with alfonso; was placed 10/09 -has adequate UO #Tropinemia likely /2 demand from septic shock -has peaked at 0.30 -0.17> 0.30>0.21 -Cardio on board: Dr. Del Cid -ECHO without evidence vegetations #Hypothyroidism -currently without complaint -as per son, pt without current PCP, however was seen at [address] [place] [address] multiple yrs prior -as per pharmacy x2, currently not on levothyroxine. Confirmed by son -TSH 1.48 -has been d/c #F/E/N IV 1/ NS 75 cc/hr - 1 bag Continue to follow lytes clear liquid diet #PPX DVT: hep 5000 U TID #Dispo Cont'd monitoring in ICU Visit type - Emergency Visit Emergency Visit: No - New Patient This patient is new to me today: No - Critical Care Critical Care patient: Yes Total Critical Care Time (in minutes): 55 Critical Care Statement: The care of this patient involved high complexity decision making to prevent further life threatening deterioration of the patient 's condition and/or to evaluate & treat vital organ system(s) failure or risk of failure.
--- NOTE | 2017-10-10 14:03 | PN ---
Physical Exam: SUBJECTIVE: Patient seen and examined. Offers no new complaints except for L mandibular pain. Patients mental status improved and family says she is back at baseline. s/p LP yesterday. Glucose and proteins elevated. 10 wbc predominantly lymphocytes. OBJECTIVE: Vital Signs Period Temp Pulse Resp BP Sys/Rios Pulse Ox Last 24 Hr 98 F-98.7 F 80-95 12-21 97-136/47-71 100-100 GENERAL: a/o x 3, in no acute distress EYES: EOMI, extraocular movements intact, conjunctiva clear. ENT: oropharynx clear without exudates, dry mucous membranes NECK: supple. LUNGS: Breath sounds equal, clear to auscultation bilaterally HEART: Regular rate and rhythm, S1, S2 without murmur, rub or gallop. ABDOMEN: Soft, nontender, nondistended, normoactive bowel sounds EXTREMITIES: 2+ pulses, warm, well-perfused, no edema. NEUROLOGICAL: Cranial nerves II through XII grossly intact. Normal speech. strength 5/5 throughout, sensations equal and intact throughout PSYCH: Normal mood, normal affect. Laboratory Results - last 24 hr 10/09/17 10/09/17 10/09/17 00:39 05:30 05:30 WBC RBC Hgb Hct MCV MCH MCHC RDW Plt Count MPV Neutrophils % Lymphocytes % Monocytes % Eosinophils % Basophils % Nucleated RBC % Sodium 136 Potassium 3.5 Chloride 108 H Carbon Dioxide 20 L Anion Gap 8 BUN 11 Creatinine 1.0 Creat Clearance w eGFR Random Glucose 172 H Calcium 6.7 L* Phosphorus 2.1 L Magnesium 1.5 L Total Bilirubin AST ALT Alkaline Phosphatase Creatine Kinase 291 H 424 H Creatine Kinase Index 1.4 1.8 CK-MB (CK-2) 4.177 H 7.663 H Troponin I 0.30 H 0.21 H Total Protein Albumin Triglycerides Cholesterol Total LDL Cholesterol HDL Cholesterol Total Amylase Lipase Vitamin B12 379 Cancelled Cortisol AM Sample 1.2 CSF Appearance CSF Color CSF WBC CSF RBC CSF Neutrophils CSF Lymphocytes CSF Monocytes CSF Eosinophils CSF Basophils CSF Macrophages CSF Plasma Cells CSF Diff Comment CSF Comment CSF Glucose CSF Total Protein RPR Titer HIV 1&2 Antibody Screen HIV P24 Antigen 10/09/17 10/09/17 10/09/17 08:00 08:00 14:00 WBC RBC Hgb Hct MCV MCH MCHC RDW Plt Count MPV Neutrophils % Lymphocytes % Monocytes % Eosinophils % Basophils % Nucleated RBC % Sodium Potassium Chloride Carbon Dioxide Anion Gap BUN Creatinine Creat Clearance w eGFR Random Glucose Calcium Phosphorus Magnesium Total Bilirubin AST ALT Alkaline Phosphatase Creatine Kinase Creatine Kinase Index CK-MB (CK-2) Troponin I Total Protein Albumin Triglycerides Cholesterol Total LDL Cholesterol HDL Cholesterol Total Amylase Lipase Vitamin B12 Cancelled Cortisol AM Sample CSF Appearance Clear CSF Color Colorless CSF WBC 13 CSF RBC 3 CSF Neutrophils 0 CSF Lymphocytes 98 CSF Monocytes 0 CSF Eosinophils 0 CSF Basophils 0 CSF Macrophages 2 CSF Plasma Cells 0 CSF Diff Comment No Result Required. CSF Comment No Result Required. CSF Glucose 112 H CSF Total Protein 79 H RPR Titer Nonreactive HIV 1&2 Antibody Screen HIV P24 Antigen 10/09/17 10/09/17 10/09/17 14:00 14:00 18:30 WBC RBC Hgb Hct MCV MCH MCHC RDW Plt Count MPV Neutrophils % Lymphocytes % Monocytes % Eosinophils % Basophils % Nucleated RBC % Sodium Potassium Chloride Carbon Dioxide Anion Gap BUN Creatinine Creat Clearance w eGFR Random Glucose Calcium Phosphorus Magnesium Total Bilirubin AST ALT Alkaline Phosphatase Creatine Kinase Creatine Kinase Index CK-MB (CK-2) Troponin I Total Protein Albumin Triglycerides Cholesterol Total LDL Cholesterol HDL Cholesterol Total Amylase Lipase Vitamin B12 Cortisol AM Sample CSF Appearance CSF Color CSF WBC CSF RBC CSF Neutrophils CSF Lymphocytes CSF Monocytes CSF Eosinophils CSF Basophils CSF Macrophages CSF Plasma Cells CSF Diff Comment CSF Comment CSF Glucose Cancelled CSF Total Protein Cancelled RPR Titer HIV 1&2 Antibody Screen Negative HIV P24 Antigen Negative 10/10/17 10/10/17 10/10/17 05:30 05:30 05:30 WBC 4.9 D RBC 3.58 L Hgb 11.1 Hct 32.1 L MCV 89.7 MCH 31.1 MCHC 34.7 RDW 13.9 Plt Count 148 D MPV 7.6 Neutrophils % 89.9 H D Lymphocytes % 8.4 D Monocytes % 1.5 L Eosinophils % 0.1 D Basophils % 0.1 Nucleated RBC % 0 Sodium 149 H Potassium 3.5 Chloride 118 H Carbon Dioxide 22 Anion Gap 9 BUN 7 Creatinine 0.9 Creat Clearance w eGFR > 60 Random Glucose 179 H Calcium 7.9 L Phosphorus 2.1 L Magnesium 2.0 Total Bilirubin 0.4 D AST 47 H ALT 27 Alkaline Phosphatase 65 Creatine Kinase Creatine Kinase Index CK-MB (CK-2) Troponin I Total Protein 6.3 L Albumin 3.1 L Triglycerides Cholesterol Total LDL Cholesterol HDL Cholesterol Total Amylase 26 Lipase 54 L Vitamin B12 Cortisol AM Sample CSF Appearance CSF Color CSF WBC CSF RBC CSF Neutrophils CSF Lymphocytes CSF Monocytes CSF Eosinophils CSF Basophils CSF Macrophages CSF Plasma Cells CSF Diff Comment CSF Comment CSF Glucose CSF Total Protein RPR Titer HIV 1&2 Antibody Screen HIV P24 Antigen 10/10/17 10/10/17 10/10/17 05:30 05:30 10:55 WBC RBC Hgb Hct MCV MCH MCHC RDW Plt Count MPV Neutrophils % Lymphocytes % Monocytes % Eosinophils % Basophils % Nucleated RBC % Sodium 148 H Potassium Chloride Carbon Dioxide Anion Gap BUN Creatinine Creat Clearance w eGFR Random Glucose Calcium Phosphorus Magnesium Total Bilirubin AST ALT Alkaline Phosphatase Creatine Kinase 357 H Creatine Kinase Index 3.3 CK-MB (CK-2) 12.058 H Troponin I Total Protein Albumin Triglycerides 139 Cholesterol 140 Total LDL Cholesterol 85 HDL Cholesterol 30 L Total Amylase Lipase Vitamin B12 Cortisol AM Sample CSF Appearance CSF Color CSF WBC CSF RBC CSF Neutrophils CSF Lymphocytes CSF Monocytes CSF Eosinophils CSF Basophils CSF Macrophages CSF Plasma Cells CSF Diff Comment CSF Comment CSF Glucose CSF Total Protein RPR Titer HIV 1&2 Antibody Screen HIV P24 Antigen Active Medications Generic Name Dose Route Start Last Admin Trade Name Freq PRN Reason Stop Dose Admin Acetaminophen 1,000 mg 10/09/17 02:09 10/09/17 16:32 Ofirmev Injection - IVPB 1,000 mg Q8H PRN Administration FEVER Chlorhexidine Gluconate 1 applic 10/08/17 22:00 10/09/17 21:20 Hibiclens For Decolonization - TP 1 applic HS RYAN Administration Diphenhydramine HCl 25 mg 10/10/17 08:15 Benadryl Injection - IVPUSH Q6H PRN FOR ITCHING Heparin Sodium (Porcine) 5,000 unit 10/10/17 14:00 10/10/17 13:21 Heparin - SQ 5,000 unit TID RYAN Administration Norepinephrine Bitartrate 4, 500 mls @ 37.5 mls/hr 10/08/17 19:15 10/09/17 20 :05 000 mcg/ Dextrose IV 12 mcg/min TITR RYAN 90 mls/hr Administration Protocol 5 MCG/MIN Vancomycin HCl 750 mg/ 250 mls @ 250 mls/hr 10/09/17 09:00 10/10/17 09:47 Dextrose IVPB 250 mls/hr BID@0900,2100 RYAN Administration Acyclovir 500 mg/ Dextrose 110 mls @ 110 mls/hr 10/09/17 18:00 10/10/17 11:00 IVPB 110 mls/hr Q8H-IV RYAN Administration Ceftriaxone Sodium 2 gm/ 100 mls @ 200 mls/hr 10/09/17 18:15 10/10/17 05:19 Dextrose IVPB 200 mls/hr Q12H RYAN Administration Protocol Famotidine/Sodium Chloride 20 mg in 50 mls @ 100 mls/hr 10/09/17 22:45 09:48 Pepcid 20 Mg Premixed Ivpb - IVPB 100 mls/hr BID RYAN Administration Sodium Chloride 1,000 mls @ 75 mls/hr 10/10/17 12:15 10/10/17 13:14 1/2 Normal Saline IV 10/11/17 01:34 75 mls/hr ASDIR RYAN Administration Sodium Chloride 1,000 mls @ 125 mls/hr 10/10/17 12:17 Normal Saline - IV ASDIR RYAN Mupirocin 1 applic 10/08/17 22:00 10/10/17 09:48 Bactroban Ointment (For Decolonization) - NS 10/13/17 21:59 1 applic BID RYAN Administration Ondansetron HCl 4 mg 10/09/17 08:51 Zofran Injection IVPUSH Q6H PRN NAUSEA AND/OR VOMITING Pantoprazole Sodium 40 mg 10/09/17 10:00 10/10/17 09:47 Protonix - PO 40 mg DAILY RYAN Administration Prednisone 40 mg 10/10/17 10:00 10/10/17 09:47 Deltasone - PO 40 mg DAILY RYAN Administration ASSESSMENT/PLAN: 62F with PMH of hypothyoidism, presented to hospital with lethargy/fever/ vomiting, admitted for septic shock. #Septic shock secondary to viral meningitis - continue Acyclovir - continue IV Vancomycin and IV Ceftriaxone and droplet precautions pending results of cultures tomorrow - f/u CSF cultures - f/u brain MRI - afebrile - off pressers. Bp stable. Will now remove line. - Neuro recs appreciated #AMS -likely encephalitis from viral meningitis -patient back at baseline per Family -cont. Acyclovir -MRA of neck to rule out thrombus. patient with neck pain. #Angioedema -resolved -benadryl prn -1x medrol -po prednisone #FEN -/ NS @75 -phos repleted -WNL #PPx -hep sq Transfer to med-surge Visit type - Emergency Visit Emergency Visit: Yes ED Registration Date: 10/08/17 Care time: The patient presented to the Emergency Department on the above date and was hospitalized for further evaluation of their emergent condition. - New Patient This patient is new to me today: Yes Date on this admission: 10/10/17 - Critical Care Critical Care patient: Yes Total Critical Care Time (in minutes): 40 Critical Care Statement: The care of this patient involved high complexity decision making to prevent further life threatening deterioration of the patient 's condition and/or to evaluate & treat vital organ system(s) failure or risk of failure.
[2017-10-10] MEDS: NAPH,MB-DB/K PH,MBDB POWDER PACKET PO SCH ×2 (15:00→21:49)
[2017-10-10] MEDS: NOREPINEPHRINE BITARTRATE 4,000 MCG in DEXTROSE 5%-WATER - 496 ML IV SCH (19:40)
[2017-10-10] MEDS ORDERED: NOREPINEPHRINE BITARTRATE 4,000 MCG in DEXTROSE 5%-WATER - 496 ML IV SCH (20:38)
[2017-10-10] MEDS ORDERED: ONDANSETRON 4 MG/2 ML VIAL IVPUSH PRN (20:38)
[2017-10-10] MEDS ORDERED: ACETAMINOPHEN 1000 MG/100 ML VIAL (NON FORMULARY) IVPB PRN (20:38)
[2017-10-10] MEDS: FAMOTIDINE 20 MG/50 ML IVPB 20 MG/50 ML MG IVPB SCH (21:48)
[2017-10-10] MEDS ORDERED: CHLORHEXIDINE GLUCONATE 4% CLEANSER FOR DECOLONIZATION TP SCH (22:00)
[2017-10-10] MEDS ORDERED: MUPIROCIN 2% TOPICAL OINTMENT FOR DECOLONIZATION NS SCH (22:00)
[2017-10-11] MEDS ORDERED: ACYCLOVIR INJECTION 500 MG in DEXTROSE 5%-WATER - 100 ML IVPB SCH (02:00)
[2017-10-11] MEDS ORDERED: DEXTROSE 5%-WATER 100 ML IVPB ONE (05:07)
[2017-10-11] MEDS: ACYCLOVIR INJECTION 500 MG in DEXTROSE 5%-WATER - 100 ML IVPB SCH ×2 (05:27→17:24)
[2017-10-11] MEDS ORDERED: CEFTRIAXONE 2 GM in DEXTROSE 5%-WATER 100 ML IVPB SCH (06:15)
[2017-10-11] MEDS: HEPARIN NA (PORCINE) 5,000 UNITS/ML 1ML VIAL SQ SCH ×3 (06:39→21:01)
[2017-10-11] MEDS ORDERED: PT OWN MED DRAWER 7, Y5N ONE ×3 (06:43→20:56)
[2017-10-11 07:27] LABS: HEMATOCRIT 26.8 % (32.4-45.2); HEMOGLOBIN 9.3 GM/dL (10.7-15.3); MCH 31.3 pg (25.7-33.7); MCHC 34.7 g/dl (32.0-36.0); MEAN CELL VOLUME 90.1 fl (80-96); MEAN PLT VOLUME 8.1 fl (7.5-11.1); PLATELET COUNT 141 K/MM3 (134-434); RBC 2.97 M/mm3 (3.60-5.2); RDW 14.3 % (11.6-15.6); WHITE BLOOD COUNT 5.4 K/mm3 (4.0-10.0)
--- NOTE | 2017-10-11 07:41 | PN ---
Progress Note, Physician Chief Complaint: ID Alert no complaints looks much better and more alert vs admission Vancom Ceftriaxone Acyclovir - Current Medication List Current Medications: Active Medications Diphenhydramine HCl (Benadryl Injection -) 25 mg IVPUSH Q6H PRN PRN Reason: FOR ITCHING Heparin Sodium (Porcine) (Heparin -) 5,000 unit SQ TID [facility] Last Admin: 10/11/17 06:39 Dose: 5,000 unit Sodium Chloride (Normal Saline -) 1,000 mls @ 125 mls/hr IV ASDIR [facility] Ceftriaxone Sodium 2 gm/ (Dextrose) 100 mls @ 200 mls/hr IVPB BID@0615,1815 [facility] ; Protocol Last Admin: 10/11/17 06:37 Dose: 200 mls/hr Famotidine/Sodium Chloride (Pepcid 20 Mg Premixed Ivpb -) 20 mg in 50 mls @ 100 mls/hr IVPB BID [facility] Last Admin: 10/10/17 21:48 Dose: 100 mls/hr Vancomycin HCl 750 mg/ (Dextrose) 250 mls @ 250 mls/hr IVPB BID@0900,2100 [facility] Last Admin: 10/10/17 22:52 Dose: 250 mls/hr Acyclovir 500 mg/ Dextrose 110 mls @ 110 mls/hr IVPB Q12H [facility] Last Admin: 10/11/17 05:27 Dose: 110 mls/hr Ondansetron HCl (Zofran Injection) 4 mg IVPUSH Q6H PRN PRN Reason: NAUSEA AND/OR VOMITING Pantoprazole Sodium (Protonix -) 40 mg PO DAILY [facility] Potassium Phos/Sodium Phos (Phos-Nak Packet -) 1 packet PO BID [facility] Last Admin: 10/10/17 21:49 Dose: 1 packet Prednisone (Deltasone -) 40 mg PO DAILY [facility] - Objective Vital Signs: Vital Signs Temperature 98.5 F 10/11/17 06:00 Pulse Rate 89 10/11/17 06:00 Respiratory Rate 20 10/11/17 06:00 Blood Pressure 137/67 10/11/17 06:00 O2 Sat by Pulse Oximetry (%) 100 10/10/17 21:00 Constitutional: Yes: Well Nourished, No Distress Eyes: Yes: WNL, Conjunctiva Clear HENT: Yes: WNL, Atraumatic Neck: Yes: WNL, Supple Cardiovascular: Yes: Regular Rate and Rhythm, S1, S2, Other. No: Murmur Respiratory: Yes: WNL, Regular, CTA Bilaterally Gastrointestinal: Yes: Soft. No: Tenderness Edema: No Labs: INR, PTT INR 1.23 (0.82-1.09) H 10/08/17 16:40 Problem List - Problems (1) Septic shock Code(s): A41.9 - SEPSIS, UNSPECIFIED ORGANISM; R65.21 - SEVERE SEPSIS WITH SEPTIC SHOCK Assessment/Plan Microbiology 10/09/17 14:00 Cerebral Spinal Fluid - Lumbar Puncture Gram Stain - Final 10/08/17 16:48 Urine - Urine Richard Urine Culture - Final NO GROWTH OBTAINED 10/09/17 14:16 Nasopharyngeal Swab Respiratory Virus (PCR) - Preliminary 10/09/17 14:00 Cerebral Spinal Fluid - Lumbar Puncture Viral Culture - Preliminary 10/09/17 14:00 Cerebral Spinal Fluid - Lumbar Puncture Mycobacteria (PCR) - Preliminary 10/09/17 14:00 Cerebral Spinal Fluid - Lumbar Puncture Cryptococcal Antigen - Preliminary 10/09/17 14:00 Cerebral Spinal Fluid - Lumbar Puncture CSF Culture - Preliminary 10/08/17 16:48 Blood - Peripheral Venous Blood Culture - Preliminary NO GROWTH OBTAINED AFTER 48 HOURS, INCUBATION TO CONTINUE FOR 3 DAYS. 10/08/17 16:48 Blood - Peripheral Venous Blood Culture - Preliminary NO GROWTH OBTAINED AFTER 48 HOURS, INCUBATION TO CONTINUE FOR 3 DAYS. Laboratory Tests 10/09/17 10/09/17 10/09/17 14:00 14:00 18:30 WBC RBC Hgb Hct Plt Count BUN Creatinine Creat Clearance w eGFR HSV I DNA Quant (PCR) Pending HSV II DNA Quant (PCR) Pending H.influenzae Type B Ag Pending N. meningitidis Antigen Pending Group B Strep Antigen Pending S. pneumoniae Antigen Pending TB Test (QFT) Pending 10/10/17 10/11/17 10/11/17 05:30 06:40 06:40 WBC 4.9 D Pending RBC 3.58 L Hgb Pending Hct 32.1 L Pending Plt Count 148 D BUN Pending Creatinine Pending Creat Clearance w eGFR Pending HSV I DNA Quant (PCR) HSV II DNA Quant (PCR) H.influenzae Type B Ag N. meningitidis Antigen Group B Strep Antigen S. pneumoniae Antigen TB Test (QFT) Assesment Abnormal CSF ? Viral infection Without the prior history of having had meningitis in the past which she denies the likelihood of a a Herpetic meningitis would seem quite rare as compared to [place] or ECHO. IN that case HSV meningitis would get better on its own. If she has HSV encephalitis she would need treatment Acyclovir. Unfortunately the PCR HSV in my experience takes over a week to come back but we can check with lab. An MRI would be important because if neg might argue for stopping Acyclovir sooner. Still cannot understand why she presented as septic shock given the CSF findings. Advise Stop Vanco now and Ceftriaxone if culture negative Check HSV PCR when available Stop Steroids Jihan SCHAEFFER
[2017-10-11 08:41] LABS: CALCIUM 7.8 mg/dL (8.5-10.1); CHLORIDE 114 mmol/L (98-107); SODIUM 145 mmol/L (136-145)
[2017-10-11 08:54] LABS: ALBUMIN 2.9 g/dl (3.4-5.0); ALK PHOS 48 U/L (45-117); ANION GAP 7 (8-16); BILIRUBIN,TOTAL 0.2 mg/dL (0.2-1.0); BLOOD UREA NITROGEN 13 mg/dL (7-18); CO2 24 mmol/L (21-32); CREATININE 1.1 mg/dL (0.55-1.02); GLUCOSE,RANDOM 169 mg/dL (74-106); MAGNESIUM 1.9 mg/dL (1.8-2.4); PHOSPHOROUS 2.6 mg/dL (2.5-4.9); SGOT/AST 26 U/L (15-37); SGPT/ALT 23 U/L (12-78); TOT PROT 5.6 g/dl (6.4-8.2)
[2017-10-11] MEDS: FAMOTIDINE 20 MG/50 ML IVPB 20 MG/50 ML MG IVPB SCH ×2 (09:49→21:01)
[2017-10-11] MEDS: VANCOMYCIN 750 MG in DEXTROSE 5%-WATER - 250 ML IVPB SCH ×2 (09:49→20:58)
[2017-10-11] MEDS: PANTOPRAZOLE 40 MG TABLET (FP) PO SCH (09:49)
[2017-10-11] MEDS: NAPH,MB-DB/K PH,MBDB POWDER PACKET PO SCH ×2 (09:49→21:01)
[2017-10-11] MEDS ORDERED: predniSONE 20 MG TABLET (UD) PO SCH (10:00)
--- NOTE | 2017-10-11 14:43 | PN ---
Teaching Attending Note Name of Resident: Marcelle Hodge ATTENDING PHYSICIAN STATEMENT I saw and evaluated the patient. I reviewed the resident's note and discussed the case with the resident. I agree with the resident's findings and plan as documented. SUBJECTIVE: No fever or chills. No LANE or visual changes , no wheezing or SOB. feels back to NL OBJECTIVE: awake, alert , cooperative L facial swelling almost completely resolved. no lip or eye lid edema . unable to visualize uvula today CV: RRR, no MRG Lungs: CTAB Ext: no edema or erythema. no rash. Neuro: EOMI, round equal pupils , reactive to light. nof acial droop. uvula and tongue at mid nitesh e. facial sensation to light touch NL. Strength : shoulder shrug 5/5 b/l. biceps /triceps 5/5 . not cooperative with deltoid exam. nl hand tight cooper b/l LE : hip flexion 5/5 , ankle dorsiflexion and plantar flexion 5/5 . 5/5 knee flexion and extension Nl sensation to light touch 2+ biceps, and unable to assess knee jerk reflexes. ASSESSMENT AND PLAN: 62 y/o lady with h/o CVA who presented with AMS and was found to have fevers and shock requiring pressors 1- Septic Shock:resolved - cont IVF . change to NS - follow blood cx 2- AMS, encephalopathy due to viral meningitis Mental status is back to Normal - cont acyclovir /IVF hydration - follow HSV PCR in CSF - Abx per ID. - MRI/MRA with no abnormalities - monitor renal function on acyclovir 3-Anioedema : improved - switch to po predniosne - cont benadryl and H2 blockers 4- Elevated troponins: likely demand ischemia . 5- confirmed with patient and patient family. not on any synthroid at home 6- hypernatremia:resolved 7- DVT PX . heparin SQ
--- NOTE | 2017-10-11 19:06 | PN ---
Physical Exam: SUBJECTIVE: Patient seen and examined at bedside. No acute events overnight, afebrile. Today, pt c/o multiple loose BM's. Most recently, with fecal incontinence. Denies muscle weakness, numbness, or swelling. OBJECTIVE: Vital Signs Period Temp Pulse Resp BP Sys/Rios Pulse Ox Last 24 Hr 97.5 F-98.6 F 82-91 20-20 115-145/60-87 100-100 GENERAL: The patient is in good spirits. Happy and with family. awake, alert, and fully oriented, in no acute distress. HEAD: Normal with no signs of trauma. EYES: PERRL, extraocular movements intact, sclera anicteric, conjunctiva clear. No ptosis. Without facial swelling ENT: Ears normal, nares patent, oropharynx clear. +poor dentition NECK: Trachea midline, supple. LUNGS: Breath sounds equal, clear to auscultation bilaterally, no wheezes, no crackles, no accessory m usage HEART: Regular rate and rhythm, S1, S2 without murmur, rub or gallop. ABDOMEN: Soft, +epigastric TTP, nondistended, normoactive bowel sounds, mild guarding EXTREMITIES: 2+ pt pulses, warm, well-perfused, no edema. NEUROLOGICAL: Cranial nerves II through XII intact. Motor strength 4/5 upper and lower extremities. sensation intact. cerebellar fnc intact however still with intention tremor. PSYCH: Positive mood, normal affect. SKIN: Warm, dry, normal turgor Laboratory Results - last 24 hr 10/09/17 10/09/17 10/11/17 14:00 18:30 06:40 WBC 5.4 RBC 2.97 L Hgb 9.3 L D Hct 26.8 L D MCV 90.1 MCH 31.3 MCHC 34.7 RDW 14.3 Plt Count 141 MPV 8.1 CSF VDRL Non reactive TB Test (QFT) Negative 10/11/17 10/11/17 06:40 06:40 RDW MPV Sodium 145 Potassium 4.0 Chloride 114 H Carbon Dioxide 24 Anion Gap 7 L BUN 13 Creatinine 1.1 H Creat Clearance w eGFR 50.01 Random Glucose 169 H Calcium 7.8 L Phosphorus 2.6 Magnesium 1.9 Total Bilirubin 0.2 D AST 26 ALT 23 Alkaline Phosphatase 48 Creatine Kinase 167 Creatine Kinase Index 4.0 CK-MB (CK-2) 6.789 H Total Protein 5.6 L Albumin 2.9 L Active Medications Generic Name Dose Route Start Last Admin Trade Name Freq PRN Reason Stop Dose Admin Diphenhydramine HCl 25 mg 10/10/17 21:02 Benadryl Injection - IVPUSH Q6H PRN FOR ITCHING Heparin Sodium (Porcine) 5,000 unit 10/10/17 14:00 10/11/17 16:08 Heparin - SQ 5,000 unit TID RYAN Administration Sodium Chloride 1,000 mls @ 125 mls/hr 10/10/17 12:17 10/11/17 12:37 Normal Saline - IV 125 mls/hr ASDIR RYAN Administration Famotidine/Sodium Chloride 20 mg in 50 mls @ 100 mls/hr 10/10/17 22:00 09:49 Pepcid 20 Mg Premixed Ivpb - IVPB 100 mls/hr BID RYAN Administration Vancomycin HCl 750 mg/ 250 mls @ 250 mls/hr 10/10/17 21:00 10/11/17 09:49 Dextrose IVPB 250 mls/hr BID@0900,2100 RYAN Administration Acyclovir 500 mg/ Dextrose 110 mls @ 110 mls/hr 10/11/17 06:00 10/11/17 17:24 IVPB 110 mls/hr Q12H RYAN Administration Ondansetron HCl 4 mg 10/10/17 20:38 Zofran Injection IVPUSH Q6H PRN NAUSEA AND/OR VOMITING Pantoprazole Sodium 40 mg 10/11/17 10:00 10/11/17 09:49 Protonix - PO 40 mg DAILY RYAN Administration Potassium Phos/Sodium Phos 1 packet 10/10/17 14:00 10/11/17 09:49 Phos-Nak Packet - PO 1 packet BID RYAN Administration Imaging -10/08/17: CXR (series of three): line placement; image 1: no acute pathology. repeat: without pneumothorax. additional imaging: no obvious infiltrate or pleural effusion, minimal pleural thickening along the horizontal fissure -10/09/17: Abd/Pelvis CT w/o contrast: small, b/l pleural effusions with atelectatic changes involving the lower lobes. additional areas of atelectasis in both lungs with scattered nodularity, R apical pleural thickening and faint groundglass opacification. these changes may be chronic in nature. no evidence of acute consolidation. trace ascites in lower abdomen. distended urinary bladder. no bony abnormalities. -10/09/17: Head CT: moderate-sized faint low-attenuation density in the R frontal lobe at the level of gregory radiata and centrum semiovale is highly suspicious for an acute/subacute infarct for which follow up CT or MRI of brain is recommended. no acute intracranial hemorrhage is seen. moderate soft tissue swelling over left side of head. -10/09/17: GB U/S: technically limited exam 2/2 portable technique and body habitus. moderate GB distension is presumably physiologic. no evidence of cholelithiasis. no definite evidence of acute cholecystitis. trace pericholecystic fluid is nonspecific. no definite intrahepatic or extrahepatic bile duct dilation. -10/09/17: ECHO: EF 69.1%, normal LV EF, moderate TR, RVSP elevated at 40-50 mmHg , trace to mild MR, mild NE. -10/09/17: Carotid doppler study: right side could not be visualized d/t overlying bandage. moderate intimal thickening in the mid and distal common casrotid artery up to the bifurcation, without evidence of hemodynamically significant stenosis bilaterally. -10/11/17: Brain MRI/Neck MRA: mild to moderate volume loss and very minimal periventricular chronic microvascular ischemic disease changes. no acute intracranial pathology or abnormal enhancement are identified. previously described low attenuation density in the R MCA territory represents an artifact , in retrospect. MRA neck: vertebral arteries are unremarkable. common carotid and bifurcation unremarkable without evidence of stenosis b/l ASSESSMENT/PLAN: 62 y/o Marshall[place] F with hx of hypothyroidism, who was brought to ED by son after he found her unresponsive and febrile in her room. Pt found to be in septic shock. 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 with elev protein -Continue rocephin 2g IVPB qd, vanco 750 mg IVPB qd (Day3) -allergic to ampicillin- angioedema -Started on acyclovir 500mg IVPB q8h (Day3). Follow renal fnc while on, d/t crystallization -brain MRI: without pathology ; likely artifact -F/u CSF cx, blood cx (-) , ucx- pending -HIV, TB (-) -Follow HSV titers-may take 1 wk to return #R/o CVA -Head CT: r/o acute vs. subacute frontal infarct -Brain MRI- w/artifact, no abscess visualized -carotid doppler: without hemodynamic sig stenosis -speech and swallow eval when able -Neuro on board- Dr. Britton -F/u B12, RPR, HIV testing #Diarrhea likely 2/2 abx -F/u stool cx -C.diff toxin, ag testing #Angioedema likely 2/2 abx -Likely from ampicillin -monitor airway -received IV medrol 125 x1, Benadryl -continue benadryl 25mg IVP q6h -Prednisone 40mg PO qd has been d/c -Famotidine 20mg IVPB BID #Hypernatremia-improved -continue hydration with NS as pt recovering from septic shock -avoid overcorrection; no more than 6-8 mEq over 24hrs #Bladder distension-improved -alfonso removed today (10/11) #Tropinemia likely 2/2 demand from septic shock -has peaked at 0.30 -0.17> 0.30>0.21 -Cardio on board: Dr. Del Cid -ECHO without evidence vegetations #Hypothyroidism -currently without complaint -as per son, pt without current PCP, however was seen at [address] [place] [address] multiple yrs prior -as per pharmacy x2, currently not on levothyroxine. Confirmed by son -TSH 1.48 -has been d/c #F/E/N IV 1/2 NS 75 cc/hr - 1 bag . Currently on NS 125 cc/hr Continue to follow lytes regular diet #PPX DVT: hep 5000 U TID #Dispo has been transferred out of ICU to floor clinically improved Visit type - Emergency Visit Emergency Visit: No - New Patient This patient is new to me today: No - Critical Care Critical Care patient: No - Discharge Referral Referred to [facility] Med P.C.: No
[2017-10-12] MEDS ORDERED: PT OWN MED DRAWER 7, Y5N ONE ×2 (05:28→08:35)
[2017-10-12] MEDS: HEPARIN NA (PORCINE) 5,000 UNITS/ML 1ML VIAL SQ SCH ×2 (05:50→15:04)
[2017-10-12] MEDS: ACYCLOVIR INJECTION 500 MG in DEXTROSE 5%-WATER - 100 ML IVPB SCH (05:55)
[2017-10-12 08:12] LABS: BASO % 0.1 % (0-2.0); EOS % 0.2 % (0-4.5); HEMATOCRIT 30.9 % (32.4-45.2); HEMOGLOBIN 10.4 GM/dL (10.7-15.3); LYMPH % 19.5 % (8-40); MCH 30.9 pg (25.7-33.7); MCHC 33.7 g/dl (32.0-36.0); MEAN CELL VOLUME 91.6 fl (80-96); MEAN PLT VOLUME 7.9 fl (7.5-11.1); MONO % 9.4 % (3.8-10.2); NEUT % 70.8 % (42.8-82.8); PLATELET COUNT 180 K/MM3 (134-434); RBC 3.37 M/mm3 (3.60-5.2); RDW 14.7 % (11.6-15.6); WHITE BLOOD COUNT 4.7 K/mm3 (4.0-10.0)
[2017-10-12 08:39] LABS: ANION GAP 7 (8-16); BLOOD UREA NITROGEN 12 mg/dL (7-18); CHLORIDE 122 mmol/L (98-107); CO2 25 mmol/L (21-32); GLUCOSE,RANDOM 106 mg/dL (74-106); PHOSPHOROUS 2.5 mg/dL (2.5-4.9); POTASSIUM 3.7 mmol/L (3.5-5.1); SODIUM 154 mmol/L (136-145)
--- NOTE | 2017-10-12 08:59 | PN ---
Progress Note (short form) - Note Progress Note: ID Discussed with teaching service patient doing well Still on acyclovir Selected Entries 10/12/17 10/12/17 05:57 06:21 Temperature 98.3 F Pulse Rate 96 H Respiratory 21 Rate Blood Pressure 144/74 Laboratory Tests 10/09/17 10/09/17 10/09/17 14:00 18:30 18:30 BUN Creatinine Creat Clearance w eGFR HSV I DNA Quant (PCR) Negative HSV II DNA Quant (PCR) Negative HIV 1&2 Antibody Screen Negative HIV P24 Antigen Negative TB Test (QFT) Negative 10/11/17 10/12/17 06:40 07:30 BUN 13 Pending Creatinine 1.1 H Pending Creat Clearance w eGFR 50.01 HSV I DNA Quant (PCR) HSV II DNA Quant (PCR) HIV 1&2 Antibody Screen HIV P24 Antigen TB Test (QFT) Assessment At this point can stop Acyclovir Discharge p;trey Problem List - Problems (1) Septic shock Code(s): A41.9 - SEPSIS, UNSPECIFIED ORGANISM; R65.21 - SEVERE SEPSIS WITH SEPTIC SHOCK
[2017-10-12 09:02] LABS: CALCIUM 8.2 mg/dL (8.5-10.1)
--- NOTE | 2017-10-12 09:25 | PN ---
Physical Exam: SUBJECTIVE: Patient seen and examined OBJECTIVE: Vital Signs Period Temp Pulse Resp BP Sys/Rios Pulse Ox Last 24 Hr 97.0 F-98.6 F 82-96 20-21 104-145/57-75 100 GENERAL: The patient is awake, alert, and fully oriented, in no acute distress. HEAD: Normal with no signs of trauma. EYES: PERRL, extraocular movements intact, sclera anicteric, conjunctiva clear. No ptosis. ENT: Ears normal, nares patent, oropharynx clear without exudates, moist mucous membranes. NECK: Trachea midline, full range of motion, supple. LUNGS: Breath sounds equal, clear to auscultation bilaterally, no wheezes, no crackles, no accessory muscle use. HEART: Regular rate and rhythm, S1, S2 without murmur, rub or gallop. ABDOMEN: Soft, nontender, nondistended, normoactive bowel sounds, no guarding, no rebound, no hepatosplenomegaly, no masses. EXTREMITIES: 2+ pulses, warm, well-perfused, no edema. NEUROLOGICAL: Cranial nerves II through XII grossly intact. Normal speech, gait not observed. PSYCH: Normal mood, normal affect. SKIN: Warm, dry, normal turgor, no rashes or lesions noted Laboratory Results - last 24 hr 10/09/17 10/09/17 10/09/17 14:00 14:00 18:30 WBC RBC Hgb Hct MCV MCH MCHC RDW Plt Count MPV Neutrophils % Lymphocytes % Monocytes % Eosinophils % Basophils % Nucleated RBC % Sodium Potassium Chloride Carbon Dioxide Anion Gap BUN Creatinine Random Glucose Phosphorus Magnesium Creatine Kinase Index CK-MB (CK-2) CSF VDRL Non reactive HSV I DNA Quant (PCR) Negative HSV II DNA Quant (PCR) Negative TB Test (QFT) Negative 10/11/17 10/12/17 10/12/17 06:40 07:30 07:30 WBC 4.7 RBC 3.37 L Hgb 10.4 L D Hct 30.9 L D MCV 91.6 MCH 30.9 MCHC 33.7 RDW 14.7 Plt Count 180 D MPV 7.9 Neutrophils % 70.8 D Lymphocytes % 19.5 D Monocytes % 9.4 D Eosinophils % 0.2 D Basophils % 0.1 Nucleated RBC % 0 Sodium 154 H Potassium 3.7 Chloride 122 H Carbon Dioxide 25 Anion Gap 7 L BUN 12 Creatinine 1.0 Random Glucose 106 Phosphorus 2.5 Magnesium 2.0 Creatine Kinase Index 4.0 CK-MB (CK-2) 6.789 H CSF VDRL HSV I DNA Quant (PCR) HSV II DNA Quant (PCR) TB Test (QFT) Active Medications Generic Name Dose Route Start Last Admin Trade Name Freq PRN Reason Stop Dose Admin Heparin Sodium (Porcine) 5,000 unit 10/10/17 14:00 10/12/17 05:50 Heparin - SQ 5,000 unit TID RYAN Administration Sodium Chloride 1,000 mls @ 125 mls/hr 10/10/17 12:17 10/11/17 12:37 Normal Saline - IV 125 mls/hr ASDIR RYAN Administration Famotidine/Sodium Chloride 20 mg in 50 mls @ 100 mls/hr 10/10/17 22:00 21:01 Pepcid 20 Mg Premixed Ivpb - IVPB 100 mls/hr BID RYAN Administration Ondansetron HCl 4 mg 10/10/17 20:38 Zofran Injection IVPUSH Q6H PRN NAUSEA AND/OR VOMITING Pantoprazole Sodium 40 mg 10/11/17 10:00 10/11/17 09:49 Protonix - PO 40 mg DAILY RYAN Administration Potassium Phos/Sodium Phos 1 packet 10/10/17 14:00 10/11/17 21:01 Phos-Nak Packet - PO 1 packet BID RYAN Administration ASSESSMENT/PLAN:
[2017-10-12] MEDS ORDERED: POTASSIUM CHLORIDE TABS 20 MEQ TABLET.ER (FP) PO ONE (10:15)
[2017-10-12] MEDS: PANTOPRAZOLE 40 MG TABLET (FP) PO SCH (10:25)
[2017-10-12] MEDS: NAPH,MB-DB/K PH,MBDB POWDER PACKET PO SCH (10:25)
[2017-10-12] MEDS: FAMOTIDINE 20 MG/50 ML IVPB 20 MG/50 ML MG IVPB SCH (10:25)
[2017-10-12 11:31] VITALS: BP 152/83; PULSE 90; TEMP 98.4
--- NOTE | 2017-10-12 13:43 | PN ---
Teaching Attending Note Name of Resident: Crystal Flores ATTENDING PHYSICIAN STATEMENT I saw and evaluated the patient. I reviewed the resident's note and discussed the case with the resident. I agree with the resident's findings and plan as documented. SUBJECTIVE: had 5 watery BMs yesterday and last night , but non this am. no abd pain , no fever . diarrhea had stopped. OBJECTIVE: awake, alert ,happy and cooperative no facial edema , no oropharynx edema or tongue edema CV: RRR, no MRG Lungs: CTAB Ext: no edema or erythema. no rash. Neuro: EOMI, round equal pupils , reactive to light. no facial droop. uvula and tongue at mid line. facial sensation to light touch NL. Strength : shoulder shrug 5/5 b/l. biceps /triceps 5/5 . not cooperative with deltoid exam. nl hand law professor b/l LE : hip flexion 5/5 , ankle dorsiflexion and plantar flexion 5/5 . 5/5 knee flexion and extension Nl sensation to light touch ASSESSMENT AND PLAN: 62 y/o lady with h/o CVA who presented with AMS and was found to have fevers and shock requiring pressors 1- Septic Shock due to vial meningitis:resolved -dc IVF . po hydration - blood cx no growth after 72 hours 2- AMS, encephalopathy due to viral meningitis. CSF cx neg. HSV Neg . other tests on CSF are still pending Mental status is back to Normal - dc acyclovir . d/w ID - no need for Abx 3-Angioedema : resolved. - cont benadryl and H2 blockers for a total of 1 week - no steroids at this point 4- diarrhea : resolved. probably due to Abx. no leukocytosis or abd pain or fever , to suggest c diff. stool sample last night was not enough to test for c diff 5- Hypernatremia: cont po hydration dispo : DC home .
--- NOTE | 2017-10-12 15:59 | DS ---
Physical Exam: SUBJECTIVE: Patient seen and examined by me at bedside. Overnight events noted for episodes of diarrhea, as per patient and patients son. Patient however reports feeling much better and has not had an episode of diarrhea today. Otherwise, patient denies fever, chills, nausea, vomiting, abdominal pain, chest pain, palpitations, headaches, acute vision changes OBJECTIVE: Vital Signs Period Temp Pulse Resp BP Sys/Rios Pulse Ox Last 24 Hr 97.0 F-98.6 F 90-96 20-21 104-152/57-83 97-100 PHYSICAL EXAM GENERAL: The patient is in good spirits. Happy and with family. awake, alert, and fully oriented, in no acute distress. HEAD: Normal with no signs of trauma. EYES: PERRL, extraocular movements intact, sclera anicteric, conjunctiva clear. No ptosis. Without facial swelling ENT: oropharynx clear. +poor dentition LUNGS: Breath sounds equal, clear to auscultation bilaterally, no wheezes, no crackles, no accessory m usage HEART: Regular rate and rhythm, S1, S2 without murmur, rub or gallop. ABDOMEN: Soft, Non tender, nondistended, normoactive bowel sounds, mild guarding EXTREMITIES: 2+ pt pulses, warm, well-perfused, no edema. NEUROLOGICAL: Cranial nerves II through XII intact. Motor strength 4/5 upper and lower extremities. sensation intact. cerebellar function intact PSYCH: Positive mood, normal affect. SKIN: Warm, dry, normal turgor LABS Laboratory Results - last 24 hr 10/09/17 10/12/17 10/12/17 14:00 07:30 07:30 WBC 4.7 RBC 3.37 L Hgb 10.4 L D Hct 30.9 L D MCV 91.6 MCH 30.9 MCHC 33.7 RDW 14.7 Plt Count 180 D MPV 7.9 Neutrophils % 70.8 D Lymphocytes % 19.5 D Monocytes % 9.4 D Eosinophils % 0.2 D Basophils % 0.1 Nucleated RBC % 0 Sodium 154 H Potassium 3.7 Chloride 122 H Carbon Dioxide 25 Anion Gap 7 L BUN 12 Creatinine 1.0 Random Glucose 106 Calcium 8.2 L Phosphorus 2.5 Magnesium 2.0 HSV I DNA Quant (PCR) Negative HSV II DNA Quant (PCR) Negative Microbiology 10/08/17 16:48 Blood - Peripheral Venous Blood Culture - Preliminary NO GROWTH OBTAINED AFTER 96 HOURS, INCUBATION TO CONTINUE FOR 1 DAYS. 10/08/17 16:48 Blood - Peripheral Venous Blood Culture - Preliminary NO GROWTH OBTAINED AFTER 96 HOURS, INCUBATION TO CONTINUE FOR 1 DAYS. 10/09/17 14:00 Cerebral Spinal Fluid - Lumbar Puncture Gram Stain - Final 10/09/17 14:00 Cerebral Spinal Fluid - Lumbar Puncture CSF Culture - Final 10/08/17 16:48 Urine - Urine Richard Urine Culture - Final NO GROWTH OBTAINED 10/09/17 14:16 Nasopharyngeal Swab Respiratory Virus (PCR) - Preliminary 10/09/17 14:00 Cerebral Spinal Fluid - Lumbar Puncture Mycobacteria (PCR) - Preliminary 10/09/17 14:00 Cerebral Spinal Fluid - Lumbar Puncture Cryptococcal Antigen - Preliminary 10/09/17 14:00 Cerebral Spinal Fluid - Lumbar Puncture Viral Culture - Preliminary Imaging -10/08/17: CXR (series of three): line placement; image 1: no acute pathology. repeat: without pneumothorax. additional imaging: no obvious infiltrate or pleural effusion, minimal pleural thickening along the horizontal fissure -10/09/17: Abd/Pelvis CT w/o contrast: small, b/l pleural effusions with atelectatic changes involving the lower lobes. additional areas of atelectasis in both lungs with scattered nodularity, R apical pleural thickening and faint groundglass opacification. these changes may be chronic in nature. no evidence of acute consolidation. trace ascites in lower abdomen. distended urinary bladder. no bony abnormalities. -10/09/17: Head CT: moderate-sized faint low-attenuation density in the R frontal lobe at the level of gregory radiata and centrum semiovale is highly suspicious for an acute/subacute infarct for which follow up CT or MRI of brain is recommended. no acute intracranial hemorrhage is seen. moderate soft tissue swelling over left side of head. -10/09/17: GB U/S: technically limited exam 2/2 portable technique and body habitus. moderate GB distension is presumably physiologic. no evidence of cholelithiasis. no definite evidence of acute cholecystitis. trace pericholecystic fluid is nonspecific. no definite intrahepatic or extrahepatic bile duct dilation. -10/09/17: ECHO: EF 69.1%, normal LV EF, moderate TR, RVSP elevated at 40-50 mmHg , trace to mild MR, mild ND. -10/09/17: Carotid doppler study: right side could not be visualized d/t overlying bandage. moderate intimal thickening in the mid and distal common casrotid artery up to the bifurcation, without evidence of hemodynamically significant stenosis bilaterally. -10/11/17: Brain MRI/Neck MRA: mild to moderate volume loss and very minimal periventricular chronic microvascular ischemic disease changes. no acute intracranial pathology or abnormal enhancement are identified. previously described low attenuation density in the R MCA territory represents an artifact , in retrospect. MRA neck: vertebral arteries are unremarkable. common carotid and bifurcation unremarkable without evidence of stenosis b/l HOSPITAL COURSE: Patient is a 62 year old female with no significant PMHx who was brought to the hospital after her son found her unresponsive and febrile at home. When patient arrived she was found to be in Septic shock and was being monitored in the ICU on pressors. Patient immediately responded on pressors and was taken off of them less than 12 hours later. Patient continued to have Fevers for 24 hours and was started on Vancomycin, Ceftriaxone for three days. Patient was also started on Acyclovir. MRI as well as Head CT were negative. ECHO revealed no vegetation. LP was done at bedside and CSF fluids revealed viral meningitis. Patient was then taken off the antibiotics and remained on Acyclovir until HSV Csf results returned. Patient's blood and urine cultures were negative. THroughout the course patient was given Ampicillin with an episode of angioedema. Patient was started on Benadryl and famitidine with resolution of symptoms. HSV cultures returned today (10/12/17) and patient was taken off acyclovir. However, last night patient experienced multiple episodes of diarrhea and a stool culture was taken. Gave thorough instructions upon discharge on following up within a week at [facility] for remaining CSF results and well as repeat CBC and BMP. Patient remained stable and ready for discharge. Date of Admission:10/08/17 Date of Discharge: 10/12/17 Minutes to complete discharge: 45 Discharge Summary Reason For Visit: SEPTIC SHOCK Current Active Problems Septic shock (Acute) Viral meningitis, unspecified (Acute) Condition: Improved - Instructions Diet, Activity, Other Instructions: You were admitted to the hospital because you were found to have a viral infection of the brain. You were in the ICU for a couple of days and required medications to keep your blood pressure up. Throughout your hospital stay you had fluid sample from your spine taken to check and see what virus or bacteria is causing this. As of today, the results are negative but there are still more pending. You improved and do not need anymore antibiotics. -You were given an antibiotic called Ampicillin and you had an allergic reaction to it. -Please have it in your personal records that you are highly allergic to ampicillin. FOLLOW UP: -Please follow up at [facility] in one week for the rest of your blood work and CSF results (Lyme, [place], N. meningitis, H. Influenza type B, Group B strep, S. Pnemoniae) . Please call [phone] and ask the ball mill operator to transfer you to the [facility]. Please make an Appointment for next week. -Please Follow up with Neurologist, Dr. Britton, within two weeks for a follow up on the headaches you've been experiencing and to follow up on the pending labs . -I Will be sending a prescription of CBC and BMP to be done at any lab or here at [facility] in one week. -We took some stool cultures and are still pending. We will call you when the results return. If the results are positive, we will prescribe you antibiotics. MEDICATIONS: -Avoid taking Ibuprofen or any NSAIDS as it can damage your kidneys. Take Tylenol as needed for headaches. You may take up to 3000mg of Tylenol. -Please drink plenty of water If you experience fevers above 103.0 F, shortness of breath, swelling of the face, return to the emergency department. Referrals: Hernandez Britton MD [Staff Physician] - Disposition: HOME - Home Medications Comprehensive Discharge Medication List: Ambulatory Orders Acetaminophen [Tylenol] 325 mg PO Q6H PRN #10 tablet 10/12/17 Miscellaneous Drug Not In Syst [Outpatient Lab Test] 1 each ASDIR #1 misc 06/30 This patient is new to me today: Yes Date on this admission: 10/13/17 Emergency Visit: Yes ED Registration Date: 10/08/17 Care time: The patient presented to the Emergency Department on the above date and was hospitalized for further evaluation of their emergent condition. Critical Care patient: No - Discharge Referral Referred to [facility] Med P.C.: No
== END 2017-10-12 16:54 | disposition home or self-care (01) | DRG 720 ==
LOC: JER 16:22 → JERBED 18:55 → JICU 21:04 → J8W 10-10 20:27
PROVIDERS: ADMIT Internal Medicine; ATTEND Internal Medicine
PROC: 009U3ZX Drainage of Spinal Canal, Percutaneous Approach, Diagnostic (ICD-10-PCS; principal; 2017-10-09)
DX: A41.9 Sepsis, unspecified organism (principal); R65.21 Severe sepsis with septic shock; E03.9 Hypothyroidism, unspecified; A87.9 Viral meningitis, unspecified; R41.82 Altered mental status, unspecified; E87.0 Hyperosmolality and hypernatremia; G93.40 Encephalopathy, unspecified; T78.3XXA Angioneurotic edema, initial encounter; N32.89 Other specified disorders of bladder; E87.2 Acidosis; N17.9 Acute kidney failure, unspecified; E86.0 Dehydration; J98.11 Atelectasis; R18.8 Other ascites; J90 Pleural effusion, not elsewhere classified
CPT/HCPCS: 36415; 70450-TC; 70548-TC; 70553-TC; 71045-TC-FY; 74176-TC; 76705-TC; 80048; 80053; 80061; 81003; 81015; 82150; 82533; 82550; 82553; 82607; 82803; 82945; 83605; 83690; 83721; 83735; 84100; 84157; 84295; 84443; 84484; 85025; 85027; 85610; 85730; 86480; 86592; 86593; 86617; 86663; 86664; 86665; 86788; 86789; 87040; 87045; 87046; 87070; 87086; 87205; 87252; 87324; 87389; 87449; 87476; 87529; 87556; 87633; 87802; 87899; 93005; 93010; 93306-TC; 93880-TC; 99285-25; J0131; J1644; J7030

== ENCOUNTER 2018-01-03 14:54 | Emergency (ER) | payer OTHER ==
[2018-01-03 15:11] VITALS: TEMP 98.1; BMI 22.6
--- NOTE | 2018-01-03 15:27 | PDOC ---
History of Present Illness - General Chief Complaint: Pain Stated Complaint: BREAST PAIN ON BOTH/PUSS DISCHARGE Time Seen by Provider: 01/03/18 15:26 History Source: Family Exam Limitations: Language Barrier - History of Present Illness Initial Comments: 01/03/18 16:09 62F with PMH of CVA and hyponatremia recently discharged 10 days ago after being admitted for hyponatremia. Patient was worked up and discharged on hydrocortisone and supposed to follow up with Dr. Dial from endocrinology. She presents with family members for a 3 day history of bilateral breast pain with discharge. Per the family she has been experiencing pain with white discharge. She denies nausea vomiting feevr chiis chest pain or shortness of breath. She denies redness but does endorse some itching. Past History - Past Medical History Allergies/Adverse Reactions: Allergies Allergy/AdvReac Type Severity Reaction Status Date / Time ampicillin Allergy Swelling Verified 01/03/18 15:07 Penicillins Allergy Swelling Verified 01/03/18 15:07 Home Medications: Ambulatory Orders Hydrocortisone 20 mg PO DAILY #14 tablet 12/24/17 Nystatin Ointment [Mycostatin Ointment -] 1 applic TP BID #1 tube 01/03/18 CVA: Yes (H/O LACUNAR INFARCT) COPD: No Thyroid Disease: Yes (has not taken medication >7yrs) - Suicide/Smoking/Psychosocial Hx Smoking Status: No Smoking History: Never smoked Have you smoked in the past 12 months: No Number of Cigarettes Smoked Daily: 0 Hx Alcohol Use: No Drug/Substance Use Hx: No Substance Use Type: None Review of Systems - Review of Systems Able to Perform ROS?: Yes (thru son) Is the patient limited Kazakh proficient: Yes Constitutional: No: Symptoms Reported, See HPI, Chills, Diaphoresis, Fever, Loss of Appetite, Malaise, Night Sweats, Weakness, Weight Stable, Unintentional Wgt. Loss, Unexplained wgt Loss, Other HEENTM: No: Symptoms Reported, See HPI, Eye Pain, Blurred Vision, Tearing, Recent change in vision, Double Vision, Cataracts, Ear Pain, Ocular Prothesis, Ear Discharge, Nose Pain, Nose Congestion, Tinnitus, Nose Bleeding, Hearing Loss , Throat Pain, Throat Swelling, Mouth Pain, Dental Problems, Difficulty Swallowing, Mouth Swelling, Other Respiratory: No: Symptoms reported, See HPI, Cough, Orthopnea, Shortness of Breath, SOB with Exertion, SOB at Rest, Stridor, Wheezing, Productive cough, Hemoptysis, Other Cardiac (ROS): No: Symptoms Reported, See HPI, Chest Pain, Edema, Irregular Heart Rate, Lightheadedness, Palpitations, Syncope, Chest Tightness, Other ABD/GI: No: Symptoms Reported, See HPI, Abdominal Distended, Abd. Pain w/ defecation, Blood Streaked Bowels, Constipated, Diarrhea, Difficulty Swallowing , Nausea, Poor Appetite, Poor Fluid Intake, Rectal Bleeding, Vomiting, Indigestion, Abdominal cramping, Tarry Stools, Other : No: Symptoms Reported, See HPI, Burning, Dysuria, Discharge, Frequency, Flank Pain, Hematuria, Incontinence, Pain, Urgency, Testicular Mass, Testicular Swelling, Lesions, Testicular Pain, Other Musculoskeletal: No: Symptoms Reported, See HPI, Back Pain, Gout, Joint Pain, Joint Swelling, Muscle Pain, Muscle Weakness, Neck Pain, Joint Stiffness, Other Integumentary: No: Symptoms Reported, See HPI, Bruising, Change in Color, Change in Hair/Nails, Dryness, Erythema, Flushing, Lesions, Lumps, Pallor, Pruritus, Rash, Sweating, Other Neurological: No: Symptoms reported, See HPI, Headache, Numbness, Paresthesia, Pre-Existing Deficit, Seizure, Tingling, Tremors, Weakness, Unsteady Gait, Ataxia, Dizziness, Other Psychiatric: No: Anxiety, Depression, Frequent Crying, Stressors, Sleep Pattern Change, Emotional Problems, Mood Swings, Change in Appetite, Other Endocrine: Yes: Other (Patient endorses bilateral breast pain and discharge) Hematologic/Lymphatic: No: Symptoms Reported, See HPI, Anemia, Blood Clots, Easy Bleeding, Easy Bruising, Bleeding Diathesis, Lymph Node Abnormalities, Swollen Glands, Other *Physical Exam - Vital Signs Last Vital Signs Temp Pulse Resp BP Pulse Ox 98.1 F 73 17 114/71 100 01/03/18 15:07 01/03/18 15:07 01/03/18 15:07 01/03/18 15:07 01/03/18 15:07 - Physical Exam General Appearance: Yes: Nourished, Appropriately Dressed. No: Apparent Distress Neck: positive: Trachea midline, Supple Respiratory/Chest: positive: Lungs Clear, Normal Breath Sounds, Other (Breast Exam: Both nipples are retracted. No erythema or rash. Upon squeezing both nipples there seems to be a white substance that can not be scraped off. Both breasts are slightly tender to palpation. ). negative: Respiratory Distress, Accessory Muscle Use Cardiovascular: positive: Regular Rhythm, Regular Rate, S1, S2 Gastrointestinal/Abdominal: positive: Soft. negative: Tender Musculoskeletal: negative: CVA Tenderness Extremity: positive: Normal Capillary Refill Integumentary: positive: Dry, Warm Neurologic: positive: Alert Medical Decision Making - Medical Decision Making 01/03/18 16:36 62F with PMH of hypohtyoidism CVA and hyponatremia presents to the ER with B/L mastalgia with possible thrush on the nipples given recent steroid use. Family would like mammogram to be done today. Dr. Johnson from endocrinology called and states that this is not an emergency and patient can be discharged with follow up to see him next week. He recommends continuation of the steroids and he would like to see her in the office on saturday01/07/18. Will give nystatin ointment for nipples *DC/Admit/Observation/Transfer Diagnosis at time of Disposition: Candidiasis of breast, Mastitis in female - Discharge Dispostion Disposition: HOME Condition at time of disposition: Stable Decision to Admit order: No - Prescriptions Prescriptions: Nystatin Ointment [Mycostatin Ointment -] 1 applic TP BID #1 tube - Referrals Referrals: Ирина Cortez MD [Primary Care Provider] - Call tomorrow Jennifer Johnson MD [Staff Physician] - 3 days (go to see on saturday. Call for appointment time.) Elmer Cruz MD [Staff Physician] - (call for appointment if needed) - Patient Instructions Printed Discharge Instructions: DI for Breast Pain (Mastalgia) Additional Instructions: you were seen here for breast pain and discharge. If your symptoms get worse and you start getting redness and fevers and/or chills then come back to the emergency room or go to the nearest emergency room. You must follow up with an instrumentation fitter to manage the steroids you are on and the low sodium. Please make appointment for Saturday. Go see your primary care doctor as soon as possible. I sent a prescription to [facility] on [address]. Put the ointment on your breast twice a day. I also gave you an appointment for a breast surgeon Dr. Cruz in case you need to see a breast surgeon. It was a pleasure taking care for you. fuiste vista aqu por dolor de pecho y secrecin. Si delia sntomas empeoran y comienza a tener enrojecimiento y fiebre y / o escalofros, vuelva a la chilo de emergencias o vaya a la chilo de emergencias ms cercana. Debe hacer un seguimiento con un endocrinlogo para controlar los esteroides en los que est y el bajo contenido de sodio. Por favor chantelle corinne jimmy para el laine. Vaya a hubert a wyatt mdico de atencin primaria lo antes posible. Envi corinne receta a [facility] en [address]. Coloque la pomada en delia senos dos veces al da. [place] le di corinne jimmy para un cirujano de mama, el Dr. Cruz, en nic de que necesite hubert a un cirujano de mama. Fue un placer cuidar de ti. - Post Discharge Activity
--- NOTE | 2018-01-03 16:20 | PDOC ---
Attending Attestation - HPI HPI: 01/03/18 16:22 The patient is a 62 year old female, with a significant past medical history of hypothyroidism and CVA, who presents to the emergency department with 3 days of 6/10 pain and itching to her bilateral breasts and thick discharge from her nipples. Family denies any recent sick contacts. Family denies any recent fever, headaches, abnormal urinary, or bowel symptoms. Allergies: Ampicillin. Penicillin Primary Care Physician: Dr. Dinero-Casi Endo: Dr. Johnson - Physicial Exam PE: 01/03/18 16:22 GENERAL: The patient is in no acute distress. HEAD: Normal with no signs of trauma. NECK: Normal range of motion, supple without lymphadenopathy, JVD, or masses. LUNGS: Breath sounds equal, clear to auscultation bilaterally. No wheezes, and no crackles. HEART:Regular rate and rhythm, normal S1 and S2 without murmur, rub or gallop. ABDOMEN: Soft, nontender, normoactive bowel sounds. No guarding, no rebound. No masses palpable. EXTREMITIES: Normal range of motion, no edema. No clubbing or cyanosis. No erythema, or tenderness. NEUROLOGICAL: Cranial nerves II through XII grossly intact. Normal speech. No focal neurological deficits. SKIN: (+) retracted nipples bilaterally. No erythema or increased warmth. No breast swelling or tenderness on palpation. Warm, Dry, normal turgor, no rashes or lesions noted. - Medical Decision Making 01/03/18 16:25 Documentation prepared by Pooja Webb, acting as medical referral coordinator for Gwendolyn Baca MD <Pooja Webb - Last Filed: 01/03/18 16:22> - Resident Resident Name: Josh Wagner - ED Attending Attestation I have performed the following: I have examined & evaluated the patient, The case was reviewed & discussed with the resident, I agree w/resident's findings & plan, Exceptions are as noted - Medical Decision Making 01/03/18 16:18 62 yo F h/o hyponatremia on steroids who presents to the ER for evaluation of breast pain Pt presents for mamography Pt has no signs of abscess or mass nipples retracted expressible white fluid symptoms present for the past 3 days Case reviewed with pt telephone installer she will follow up with him tomorrow she will follow up with pmd I have asked this patient to follow up KASEY with breast for mammography Clinical impression: breast pain, initial presentation <Gwendolyn Baca - Last Filed: 01/06/18 11:15>
[2018-01-03 16:55] VITALS: BP 108/50; PULSE 65
== END 2018-01-03 17:00 | disposition home or self-care (01) ==
LOC: JER 14:54
DX: B37.89 Other sites of candidiasis (principal); Z86.73 Personal history of transient ischemic attack (TIA), and cerebral infarction without residual deficits; Z86.39 Personal history of other endocrine, nutritional and metabolic disease
CPT/HCPCS: 99282-25

== ENCOUNTER 2018-04-04 20:41 | Inpatient (IN) | payer OTHER ==
--- NOTE | 2018-04-04 21:09 | PDOC ---
Rapid Medical Evaluation Time Seen by Provider: 04/04/18 21:05 Medical Evaluation: Allergies Allergy/AdvReac Type Severity Reaction Status Date / Time ampicillin Allergy Swelling Verified 01/03/18 15:07 Penicillins Allergy Swelling Verified 01/03/18 15:07 04/04/18 21:05 Improvement Rn: Dr. Núñez [phone] I have performed a brief in person evaluation of this patient. +H/O low B/P , Hyponatremia The patient presents with a chief complaints of: as per son and daughter in law : lethargy/weak and fever since today Pertinent physical exam findings: L/S CTAB I have ordered the following: cbc/cmp/ua/uc/blood culture x2, ekg, chest xray, iv, lactic The patient will proceed to the ED for further evaluation. 04/04/18 21:13
[2018-04-04] MEDS ORDERED: ACETAMINOPHEN 1000 MG/100 ML VIAL (NON FORMULARY) IVPB ONE (21:10)
[2018-04-04] MEDS ORDERED: ACETAMINOPHEN INJECTION 100 ML IVPB ONE (21:42)
[2018-04-04 21:55] LABS: INR 1.16 (0.83-1.09); PROTHROMBIN TIME (PATIENT) 13.7 SEC (9.7-13.0)
--- NOTE | 2018-04-04 22:16 | PDOC ---
History of Present Illness - General Chief Complaint: SIRS, Suspected/Possible Stated Complaint: WEAKNESS Time Seen by Provider: 04/04/18 21:05 History Source: Patient, Family Exam Limitations: Language Barrier ([id number]) - History of Present Illness Initial Comments: 04/05/18 00:04 62 yo F with a hx of hyponatremia, nephrolithiasis, CVA, and hypothyroidism presents to the emergency department with weakness in the setting of sore throat. The history was limited as the patient kept falling back to sleep. Per the patient, she denies having pain. Denies the following: fevers, chest pain, SOB, abdominal pain, and lightheadedness. Per the family at bedside (grandson with ), he states she complained of a sore throat and that she becomes very weak when she has hypotension and hyponatremia. She was seen in the hospital over the summer for hyponatremia episode. 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) COPD: No HTN: Yes Thyroid Disease: Yes (has not taken medication >7yrs) Other medical history: Hyponatremia - Surgical History Abdominal Surgery: No Appendectomy: No Cholecystectomy: No Gastric Stapling: No - Suicide/Smoking/Psychosocial Hx Smoking Status: No Smoking History: Never smoked Have you smoked in the past 12 months: No Number of Cigarettes Smoked Daily: 0 Hx Alcohol Use: No Drug/Substance Use Hx: No Substance Use Type: None Review of Systems - Review of Systems Able to Perform ROS?: No (lethargic -falling asleep) *Physical Exam - Vital Signs Last Vital Signs Temp Pulse Resp BP Pulse Ox 103 F H 99 H 20 144/74 97 04/04/18 21:08 04/04/18 21:08 04/04/18 21:08 04/04/18 21:08 04/04/18 21:08 - Physical Exam General Appearance: Yes: Nourished, Appropriately Dressed, Other (lethargic) HEENT: positive: EOMI, ROSMERY, Pharyngeal Erythema, Tonsillar Erythema. negative : Normal Voice, Scleral Icterus (R), Scleral Icterus (L), Muffled/Hoarse voice, Tonsillar Exudate, Sinus Tenderness, Excessive drooling Neck: positive: Trachea midline. negative: Decreased range of motion, Lymphadenopathy (R), Lymphadenopathy (L), Tender lateral, Tender midline Respiratory/Chest: positive: Lungs Clear, Normal Breath Sounds. negative: Chest Tender, Respiratory Distress, Accessory Muscle Use, Crackles, Rales, Rhonchi, Stridor, Wheezing Cardiovascular: positive: Regular Rhythm, S1, S2, Tachycardia. negative: Systolic Murmur Gastrointestinal/Abdominal: positive: Normal Bowel Sounds, Tender (suprepubic region), Flat, Soft. negative: Protuberent, Distended Lymphatic: negative: Adenopathy Musculoskeletal: positive: Normal Inspection. negative: CVA Tenderness, CVA Tenderness (R), CVA Tenderness (L) Extremity: positive: Normal Capillary Refill, Normal Inspection, Normal Range of Motion. negative: Tender Integumentary: positive: Normal Color, Dry, Warm, Other (felt hot to the touch) . negative: Rash, Swelling Neurologic: positive: Alert, Responsive. negative: Fully Oriented (oriented to person. ), Facial Droop ED Treatment Course - LABORATORY CBC & Chemistry Diagram: 04/05/18 05:20 04/05/18 05:20 - ADDITIONAL ORDERS Additional order review: Laboratory Results 04/04/18 04/04/18 21:20 21:20 PT with INR 13.70 H INR 1.16 H PTT (Actin FS) 43.0 H Lactic Acid 2.1 H - Medications Given in the ED: ED Medications Discontinued Medications Generic Name Dose Route Start Last Admin Trade Name Freq PRN Reason Stop Dose Admin Acetaminophen 1,000 mg 04/04/18 21:10 04/04/18 21:54 Ofirmev Injection - IVPB 04/04/18 21:11 1,000 mg ONCE ONE Administration Medical Decision Making - Medical Decision Making 04/05/18 02:38 62 yo F with a hx of hyponatremia, nephrolithiasis, CVA, and hypothyroidism presents to the emergency department with weakness in the setting of sore throat. Initial vitals Initial Vital Signs Temp Pulse Resp BP Pulse Ox 103 F H 99 H 20 144/74 97 04/04/18 21:08 04/04/18 21:08 04/04/18 21:08 04/04/18 21:08 04/04/18 21:08 Work up ddx: ams in setting of fever (infectious etiology (PNA vs UTI) vs neurological ( CVA? vs intracranial mass) vs metabolic disturbance (hyponatremia vs hypo/hyper magnesium/calcium) Laboratory Tests 04/04/18 04/04/18 04/04/18 21:20 21:20 21:20 WBC 7.7 RBC 4.07 Hgb 12.6 Hct 37.2 MCV 91.4 MCH 31.0 MCHC 33.9 RDW 12.8 D Plt Count 194 D MPV 8.0 D Absolute Neuts (auto) 5.2 Neutrophils % 67.7 Lymphocytes % 23.3 D Monocytes % 7.1 Eosinophils % 1.3 D Basophils % 0.6 Nucleated RBC % 0 PT with INR INR PTT (Actin FS) VBG pH POC VBG pCO2 POC VBG pO2 Mixed VBG HCO3 Sodium 129 L Potassium 3.5 Chloride 90 L Carbon Dioxide 27 Anion Gap 12 BUN 16 Creatinine 1.0 Creat Clearance w eGFR 55.82 Random Glucose 96 Lactic Acid Calcium 8.3 L Total Bilirubin 0.5 AST 50 H ALT 26 Alkaline Phosphatase 175 H Total Protein 8.0 Albumin 4.1 TSH 1.30 Urine Color Yellow Urine Appearance Clear Urine pH 5.0 D Ur Specific [place] 1.013 Urine Protein 2+ H Urine Glucose (UA) Negative Urine Ketones Negative Urine Blood 3+ H Urine Nitrite Negative Urine Bilirubin Negative Urine Urobilinogen Negative Ur Leukocyte Esterase Negative Urine WBC (Auto) 3 Urine RBC (Auto) 86 Urine Bacteria Few Urine Osmolality Influenza A (Rapid) Influenza B (Rapid) Group A Strep Rapid 04/04/18 04/04/18 04/04/18 21:20 21:20 21:20 WBC RBC Hgb Hct MCV MCH MCHC RDW Plt Count MPV Absolute Neuts (auto) Neutrophils % Lymphocytes % Monocytes % Eosinophils % Basophils % Nucleated RBC % PT with INR 13.70 H INR 1.16 H PTT (Actin FS) 43.0 H VBG pH POC VBG pCO2 POC VBG pO2 Mixed VBG HCO3 Sodium Potassium Chloride Carbon Dioxide Anion Gap BUN Creatinine Creat Clearance w eGFR Random Glucose Lactic Acid 2.1 H Calcium Total Bilirubin AST ALT Alkaline Phosphatase Total Protein Albumin TSH Urine Color Urine Appearance Urine pH Ur Specific [place] Urine Protein Urine Glucose (UA) Urine Ketones Urine Blood Urine Nitrite Urine Bilirubin Urine Urobilinogen Ur Leukocyte Esterase Urine WBC (Auto) Urine RBC (Auto) Urine Bacteria Urine Osmolality 483 Influenza A (Rapid) Influenza B (Rapid) Group A Strep Rapid 04/04/18 04/04/18 04/04/18 21:40 23:01 23:40 WBC RBC Hgb Hct MCV MCH MCHC RDW Plt Count MPV Absolute Neuts (auto) Neutrophils % Lymphocytes % Monocytes % Eosinophils % Basophils % Nucleated RBC % PT with INR INR PTT (Actin FS) VBG pH 7.43 H POC VBG pCO2 36.8 L POC VBG pO2 50.6 H D Mixed VBG HCO3 23.9 Sodium Potassium Chloride Carbon Dioxide Anion Gap BUN Creatinine Creat Clearance w eGFR Random Glucose Lactic Acid Calcium Total Bilirubin AST ALT Alkaline Phosphatase Total Protein Albumin TSH Urine Color Urine Appearance Urine pH Ur Specific [place] Urine Protein Urine Glucose (UA) Urine Ketones Urine Blood Urine Nitrite Urine Bilirubin Urine Urobilinogen Ur Leukocyte Esterase Urine WBC (Auto) Urine RBC (Auto) Urine Bacteria Urine Osmolality Influenza A (Rapid) Negative Influenza B (Rapid) Negative Group A Strep Rapid Negative prior to UA results, she was started on aztreonam to cover the possible infection given her subsequent re-evaluation in which she has been complaining of dysuria. patients urine shows few bacteria but negative for nitrite and leukocyte estease. CXR does not show acute pathologies. CBC did not yield leukocytosis. Her lactic acid is 2.1. Given NS 1 L. She continues to have AMS Patient was re-evaluated and found to be improved on her AMS. Flu and strep were negative. Will admit due to fevers in setting of AMS with negative CT head. Dispo: Admit 04/05/18 09:32 *DC/Admit/Observation/Transfer Diagnosis at time of Disposition: Altered mental status Qualifiers: Altered mental status type: unspecified Qualified Code(s): R41.82 - Altered mental status, unspecified - Referrals - Patient Instructions - Post Discharge Activity
[2018-04-04 22:21] LABS: ALBUMIN 4.1 g/dl (3.4-5.0); ALK PHOS 175 U/L (45-117); ANION GAP 12 MMOL/L (8-16); BILIRUBIN,TOTAL 0.5 mg/dL (0.2-1); BLOOD UREA NITROGEN 16 mg/dL (7-18); CALCIUM 8.3 mg/dL (8.5-10.1); CHLORIDE 90 mmol/L (98-107); CO2 27 mmol/L (21-32); GLUCOSE,RANDOM 96 mg/dL (74-106); POTASSIUM 3.5 mmol/L (3.5-5.1); SGOT/AST 50 U/L (15-37); SGPT/ALT 26 U/L (13-61); SODIUM 129 mmol/L (136-145)
[2018-04-04] MEDS ORDERED: SODIUM CHLORIDE 0.9% 1000 ML INFUS.BAG IV ONE (22:28)
[2018-04-04 22:33] LABS: BASO % 0.6 % (0-2.0); EOS % 1.3 % (0-4.5); HEMATOCRIT 37.2 % (32.4-45.2); HEMOGLOBIN 12.6 GM/dL (10.7-15.3); LYMPH % 23.3 % (8-40); MCHC 33.9 g/dl (32.0-36.0); MEAN CELL VOLUME 91.4 fl (80-96); MONO % 7.1 % (3.8-10.2); NEUT % 67.7 % (42.8-82.8); PLATELET COUNT 194 K/MM3 (134-434); RBC 4.07 M/mm3 (3.60-5.2); RDW 12.8 % (11.6-15.6); WHITE BLOOD COUNT 7.7 K/mm3 (4.0-10.0)
[2018-04-04 22:56] LABS: VENOUS PC02 36.8 mmHg (38-52); VENOUS PH 7.43 (7.32-7.42); VENOUS PO2 50.6 mmHg (28-48)
--- NOTE | 2018-04-04 23:43 | PDOC ---
Attending Attestation - HPI HPI: 04/05/18 00:14 The patient is a 62 year old female, with a significant past medical history of hypothyroidism, hyponatremia, CVA, who presents to the emergency department with , 3 days of AMS, weakness, fever, sore throat, and dysuria. Patients family notes a Tmax of 103 degrees Fahrenheit. Patient is not up to date with her flu shot. She denies any hematuria. She denies recent chest pain or shortness of breath. Allergies: Ampicillin. Penicillin. Primary Care Physician: Dr. Richardson - Physicial Exam PE: 04/05/18 01:03 +Constitutional: Warm to touch. Awake, alert, oriented. No acute distress. Head: Normocephalic. Atraumatic Eyes: PERRL. EOMI. Conjunctivae are not pale. +ENT: Poor dentian. Posterior pharynx erythematous without exudates. Mucous membranes are moist and intact. Neck: Supple. Full ROM. No lymphadenopathy. +Cardiovascular: Tachycardic. Distal pulses are 2+ and symmetric. Pulmonary/Chest: No evidence of respiratory distress. Clear to auscultation bilaterally No wheezing, rales or rhonchi. +Abdominal: Suprapubic tenderness. Soft and non-distended. No rebound, guarding or rigidity. No organomegaly. No palpable masses. Good bowel sounds. Back: No CVA tenderness. Musculoskeletal: No edema. No cyanosis. No clubbing. Full range of motion in all extremities. No calf tenderness. Radial/pedal pulses are intact and 2+ bilaterally Skin: Skin is warm and dry. No petechiae. No purpura. Neurological: Alert and oriented to person, place, and time. Cranial nerves II -XII are grossly intact. Normal speech. Strength is grossly symmetric. No sensory deficits. Psychiatric: Good eye contact. Normal interaction, affect and behavior. <Caity Adrian - Last Filed: 04/05/18 01:03> - Resident Resident Name: Alfonso Moya - ED Attending Attestation I have performed the following: I have examined & evaluated the patient, The case was reviewed & discussed with the resident, I agree w/resident's findings & plan, Exceptions are as noted - Medical Decision Making 04/04/18 23:37 I, Dr. Tiffanie Bonilla, DO, attest that this document has been prepared under my direction and personally reviewed by me in its entirety. I further attest, that it accurately reflects all work, treatment, procedures and medical decision -making performed by me. 04/04/18 23:38 a/p: 62yo female with fever and sore throat -sore throat x 3 days, fever of 103 -also with dysuria -will send labs, cultures, ua, blood cultures, strep swab, flu swab -will give ivf hydration -will start gram neg allison coverage for dysuria -will most likely need admission -will monitor and reassess 04/05/18 02:01 pt with fever and change in MS flu negative strep negative low sodium will admit to [facility] for further eval pending cultures <Tiffanie Bonilla - Last Filed: 04/05/18 02:04> Heart Score/ECG Review - ECG Intrepretation Comment:: 04/04/18 23:43 sinus at 98, t wave inversions anterior leads, nl axis, abnl ekg <Tiffanie Bonilla - Last Filed: 04/05/18 02:04> Attestations - Attestations 04/05/18 00:15 Documentation prepared by Caity Adrian, acting as medical office representative for Tiffanie Bonilla DO. <Caity Adrian - Last Filed: 04/05/18 01:03>
[2018-04-04] MEDS ORDERED: AZTREONAM 1 GM in DEXTROSE 5%-WATER - 50 ML IVPB ONE (23:44)
[2018-04-04 23:52] LABS: THROAT:GRP A STREP ANTIGEN Negative
[2018-04-05 00:08] LABS: URINE APPEARANCE CLEAR; URINE BILIRUBIN NEGATIVE (<2.0 mg/dL); URINE COLOR YELLOW; URINE GLUCOSE (UA) NEGATIVE (NEGATIVE); URINE KETONE NEGATIVE (NEGATIVE); URINE LEUK ESTERASE NEGATIVE (NEGATIVE); URINE NITRITE NEGATIVE (NEGATIVE); URINE PROTEIN 2+ (NEGATIVE); URINE UROBILINOGEN NEGATIVE mg/dL (0.2-1.0)
[2018-04-05 00:25] LABS: URINE BACTERIA FEW /hpf (NONE SEEN)
[2018-04-05] MEDS ORDERED: VANCOMYCIN 1 GM in D5W (PRE-DOCKED) 1,000 MG/250 ML IVPB ONE (00:42)
[2018-04-05] MEDS ORDERED: VANCOMYCIN 1 GRAM (PRE-DOCKED) 1,000 MG/250 ML BAG IVPB ONE ×2 (01:07→14:48)
--- NOTE | 2018-04-05 01:58 | PN ---
Teaching Attending Note Name of Resident: Marcelle Hodge ATTENDING PHYSICIAN STATEMENT I saw and evaluated the patient. I reviewed the resident's note and discussed the case with the resident. I agree with the resident's findings and plan as documented. SUBJECTIVE: Patient is a 62 year old woman with history of hyponatremia, penicillin allergy , nephrolithiasis, CVA, and hypothyroidism presents to the ER with weakness in the setting of sore throat. The history was limited as the patient kept falling back to sleep. Per the patient, she denies having pain. Denies the following: fevers, chest pain, SOB, abdominal pain, and lightheadedness. Per the family at bedside (grandson with ), he states she complained of a sore throat and that she becomes very weak when she has hypotension and hyponatremia. She was seen in the hospital over the summer for hyponatremia episode. No photophobia or blurry vision. OBJECTIVE: Alert and weak Vital Signs Period Temp Pulse Resp BP Sys/Rios Pulse Ox Last 24 Hr 103 F 99 20 144/74 97 HEENT: No Jaundice, eye redness or discharge, PERRLA, EOMI. Normocephalic, atraumatic. External ears are normal and hearing is grossly intact. No nasal discharge. Neck: Supple, nontender. No palpable adenopathy or thyromegaly. No JVD Chest: Good effort. Clear to auscultation and percussion. Heart: Regular. No S3, rub or murmur Abdomen: Not distended, soft, nontender and no HSM. No rebound or guarding. Normoactive bowel sounds. Ext: Peripheral pulses intact. No leg edema. Skin: Warm and dry. No petechiae, rash or ecchymosis. Neuro: Alert. Oriented x3. CN 2-12 grossly intact. Sensation grossly intact in all four extremities and DTR are symmetric. Home Medications Medication Instructions Recorded Hydrocortisone 20 mg PO DAILY #14 tablet 12/24/17 Nystatin Ointment [Mycostatin 1 applic TP BID #1 tube 01/03/18 Ointment -] Abnormal Lab Results 04/04/18 04/04/18 04/04/18 21:20 21:20 21:20 PT with INR 13.70 H INR 1.16 H PTT (Actin FS) 43.0 H VBG pH POC VBG pCO2 POC VBG pO2 Sodium 129 L Chloride 90 L Lactic Acid Calcium 8.3 L AST 50 H Alkaline Phosphatase 175 H Urine Protein 2+ H Urine Blood 3+ H 04/04/18 04/04/18 21:20 21:40 PT with INR INR PTT (Actin FS) VBG pH 7.43 H POC VBG pCO2 36.8 L POC VBG pO2 50.6 H D Sodium Chloride Lactic Acid 2.1 H Calcium AST Alkaline Phosphatase Urine Protein Urine Blood ASSESSMENT AND PLAN: 1. Viral syndrome - By the time i saw the patient she was alert and had no new specific complaints. Records show chronic recurrent hyponatremia though her serum sodium was normal a few months ago. Hyponatremia may be due to hypothyroidism - she has not been taking her medications. Symptoms consistent with a viral syndrome. Will evaluate hyponatremia and rule out adrenal hypofunction. Treat with IV NS at 75 ml/hour and avoid hypotonic fluids. Monitor serum sodium q 6 hours, trend lactic acid and consult nephrology. No indication for antibiotics at this time. Flu and strept swabs negative. No infiltrate on CXR. 2. DVT prophylaxis - Lovenox 40 mg SQ q 24 hours. 3. Advance directives - Full code
--- NOTE | 2018-04-05 03:54 | HP ---
CHIEF COMPLAINT: sore throat PCP: HISTORY OF PRESENT ILLNESS: Patient is a 62 y/o female with a history of hyponatremia, nephrolithiasis, CVA and hypothyroidism who presents for sore throat. She reports it began on saturday and she has not been able to do anything to make it better. She denies any sick contacts and she did not get the flu shot this year. Patient reports also having a non radiating headache on her R yazidi. Patient denies having a fever, chest pain, nausea, pain on urination, or blood in his urine. Patient reports she is able to walk at home and has been eating a lot, but because her throat has been hurting she hasn't been drinking as much water. ER course was notable for: (1) (2) (3) Recent Travel: PAST MEDICAL HISTORY: hyponatremia, nephrolithiasis, CVA, hypothyroidism PAST SURGICAL HISTORY: C section Social History: Smoking: denies Alcohol: denies Drugs: denies Family History: Allergies ampicillin Allergy (Verified 01/03/18 15:07) Swelling Penicillins Allergy (Verified 01/03/18 15:07) Swelling HOME MEDICATIONS: Home Medications Medication Instructions Recorded Hydrocortisone 20 mg PO DAILY #14 tablet 12/24/17 Nystatin Ointment [Mycostatin 1 applic TP BID #1 tube 01/03/18 Ointment -] REVIEW OF SYSTEMS CONSTITUTIONAL: Absent: fever, chills, diaphoresis, generalized weakness, malaise, loss of appetite, weight change HEENT: Absent: rhinorrhea, nasal congestion, throat pain, throat swelling, difficulty swallowing, mouth swelling, ear pain, eye pain, visual changes CARDIOVASCULAR: Absent: chest pain, syncope, palpitations, irregular heart rate, lightheadedness , peripheral edema RESPIRATORY: Absent: cough, shortness of breath, dyspnea with exertion, orthopnea, wheezing, stridor, hemoptysis GASTROINTESTINAL: Absent: abdominal pain, abdominal distension, nausea, vomiting, diarrhea, constipation, melena, hematochezia GENITOURINARY: Absent: dysuria, frequency, urgency, hesitancy, hematuria, flank pain, genital pain MUSCULOSKELETAL: Absent: myalgia, arthralgia, joint swelling, back pain, neck pain SKIN: Absent: rash, itching, pallor HEMATOLOGIC/IMMUNOLOGIC: Absent: easy bleeding, easy bruising, lymphadenopathy, frequent infections ENDOCRINE: Absent: unexplained weight gain, unexplained weight loss, heat intolerance, cold intolerance NEUROLOGIC: headache Absent: focal weakness or paresthesias, dizziness, unsteady gait, seizure, mental status changes, bladder or bowel incontinence PSYCHIATRIC: Absent: anxiety, depression, suicidal or homicidal ideation, hallucinations. PHYSICAL EXAMINATION Vital Signs - 24 hr 04/04/18 21:08 Temperature 103 F H Pulse Rate 99 H Respiratory 20 Rate Blood Pressure 144/74 O2 Sat by Pulse 97 Oximetry (%) GENERAL: Awake, alert, and fully oriented, in no acute distress. HEAD: Normal with no signs of trauma. EYES: Pupils equal, round and reactive to light, extraocular movements intact EARS, NOSE, THROAT: oropharynx clear without exudates. Moist mucous membranes. NECK: Normal range of motion, supple without lymphadenopathy, JVD, or masses. LUNGS: Breath sounds equal, clear to auscultation bilaterally. No wheezes, and no crackles. No accessory muscle use. HEART: Regular rate and rhythm, normal S1 and S2 without murmur, rub or gallop. ABDOMEN: Soft, nontender, not distended, normoactive bowel sounds, no guarding, no rebound, no masses. LOWER EXTREMITIES: 2+ pulses, warmNo calf tenderness. No peripheral edema. NEUROLOGICAL: Cranial nerves II-XII intact. Normal speech. PSYCHIATRIC: Cooperative. Good eye contact. Appropriate mood and affect. SKIN: Warm, dry, normal turgor, no rashes or lesions noted, normal capillary refill. CBC, BMP 04/04/18 21:20 04/04/18 21:20 Urine Test Results Urine Color Yellow 04/04/18 21:20 Urine Appearance Clear 04/04/18 21:20 Urine pH 5.0 (5.0-8.0) D 04/04/18 21:20 Ur Specific [place] 1.013 (1.010-1.035) 04/04/18 21:20 Urine Protein 2+ (NEGATIVE) H 04/04/18 21:20 Urine Glucose (UA) Negative (NEGATIVE) 04/04/18 21:20 Urine Ketones Negative (NEGATIVE) 04/04/18 21:20 Urine Blood 3+ (NEGATIVE) H 04/04/18 21:20 Urine Nitrite Negative (NEGATIVE) 04/04/18 21:20 Urine Bilirubin Negative (<2.0 mg/dL) 04/04/18 21:20 Ur Leukocyte Esterase Negative (NEGATIVE) 04/04/18 21:20 Urine Bacteria Few /hpf (NONE SEEN) 04/04/18 21:20 ASSESSMENT/PLAN: Patient is a 62 y/o female with a history of hyponatremia, nephrolithiasis, CVA and hypothyroidism who presents for sore throat. #hyponatremia, chronic - patient has a hx of hyponatremia and received salt tabs last visit - f/u Dr. Núñez - f/u osmoles and sodium - possible adrenal insufficency :continue hydrocortisone 10 mg daily #SIRS, no source of infection - patient had temperature of 103, repeat 98.3 - BP dropped to 88/44, patient given bolus and started on NS - UA 3 WBC, no LE - f/u blood cx - Lactic acid 2.1, continue to trend - influenza and strep negative - Echo 10/09/17 : EF normal, LV size and function normal - given Vanc and Aztreonam in the ED - conitinue Vanc and Aztreonam #hypothyroidism - not currently treated, TSH WNL #CVA - questionable AMS - patient A & O x3 upon examination - f/u head CT #DVT ppx - Lovenox 40 mg sq Visit type - Emergency Visit Emergency Visit: Yes ED Registration Date: 04/05/18 Care time: The patient presented to the Emergency Department on the above date and was hospitalized for further evaluation of their emergent condition. - New Patient This patient is new to me today: Yes Date on this admission: 04/05/18 - Critical Care Critical Care patient: No
[2018-04-05] MEDS ORDERED: SODIUM CHLORIDE 1 GM TABLET PO ONE (04:20)
[2018-04-05] MEDS ORDERED: SODIUM CHLORIDE 0.9% 500 ML INFUS.BAG IV ONE (05:18)
[2018-04-05 05:39] LABS: HEMATOCRIT 30.5 % (32.4-45.2); HEMOGLOBIN 10.4 GM/dL (10.7-15.3); MCH 31.3 pg (25.7-33.7); MCHC 34.1 g/dl (32.0-36.0); MEAN CELL VOLUME 91.7 fl (80-96); MEAN PLT VOLUME 7.2 fl (7.5-11.1); PLATELET COUNT 140 K/MM3 (134-434); RBC 3.33 M/mm3 (3.60-5.2); RDW 12.9 % (11.6-15.6); WHITE BLOOD COUNT 5.6 K/mm3 (4.0-10.0)
[2018-04-05 06:12] LABS: ALBUMIN 2.8 g/dl (3.4-5.0); ALK PHOS 117 U/L (45-117); ANION GAP 7 MMOL/L (8-16); BILIRUBIN,TOTAL 0.5 mg/dL (0.2-1); BLOOD UREA NITROGEN 15 mg/dL (7-18); CHLORIDE 99 mmol/L (98-107); CO2 25 mmol/L (21-32); CREATININE 0.7 mg/dL (0.55-1.3); GLUCOSE,RANDOM 89 mg/dL (74-106); POTASSIUM 3.3 mmol/L (3.5-5.1); SGOT/AST 38 U/L (15-37); SGPT/ALT 21 U/L (13-61); SODIUM 130 mmol/L (136-145); TOT PROT 5.5 g/dl (6.4-8.2)
[2018-04-05] MEDS: SODIUM CHLORIDE 1,000 ML IV SCH ×2 (06:16→15:31)
[2018-04-05 08:42] VITALS: BMI 24.0
[2018-04-05] MEDS ORDERED: PT OWN MED DRAWER 7, Y5N ONE ×3 (09:50→21:07)
[2018-04-05] MEDS ORDERED: AZTREONAM 1 GM in DEXTROSE 5%-WATER - 50 ML IVPB SCH (10:00)
[2018-04-05] MEDS ORDERED: HYDROCORTISONE 5 MG TABLET PO SCH (10:00)
--- NOTE | 2018-04-05 10:09 | HOSP ---
Subjective - Review of Symptoms Events since last encounter: Patient is feeling better with no acute distress. AAOx3, nfd, c/o having headache, no meningeal sign. Initial Vital Signs Temp Pulse Resp BP Pulse Ox 103 F H 99 H 20 144/74 97 04/04/18 21:08 04/04/18 21:08 04/04/18 21:08 04/04/18 21:08 04/04/18 21:08 Vital Signs Temperature 99.5 F 04/05/18 07:56 Pulse Rate 89 04/05/18 07:56 Respiratory Rate 18 04/05/18 07:56 Blood Pressure 116/58 L 04/05/18 07:56 O2 Sat by Pulse Oximetry (%) 96 04/05/18 07:56 GENERAL: Awake, alert, and fully oriented, in no acute distress. HEAD: Normal with no signs of trauma. EYES: Pupils equal, round and reactive to light, extraocular movements intact EARS, NOSE, THROAT: oropharynx clear without exudates. Moist mucous membranes. NECK: Normal range of motion, supple without lymphadenopathy, JVD, or masses. LUNGS: Breath sounds equal, clear to auscultation bilaterally. No wheezes, and no crackles. No accessory muscle use. HEART: RRR, normal S1 and S2 without murmur, rub or gallop. ABDOMEN: Soft, nontender, not distended, normoactive bowel sounds, no guarding, no rebound, no masses. EXTREMITIES: 2+ pulses, warmNo calf tenderness. No peripheral edema. NEUROLOGICAL: Cranial nerves II-XII intact. Normal speech. PSYCHIATRIC: Cooperative. Good eye contact. Appropriate mood and affect. SKIN: Warm, dry, normal turgor, no rashes or lesions noted, normal capillary refill. CBCD WBC 5.6 K/mm3 (4.0-10.0) 04/05/18 05:20 RBC 3.33 M/mm3 (3.60-5.2) L 04/05/18 05:20 Hgb 10.4 GM/dL (10.7-15.3) L 04/05/18 05:20 Hct 30.5 % (32.4-45.2) L D 04/05/18 05:20 MCV 91.7 fl (80-96) 04/05/18 05:20 MCHC 34.1 g/dl (32.0-36.0) 04/05/18 05:20 RDW 12.9 % (11.6-15.6) 04/05/18 05:20 Plt Count 140 K/MM3 (134-434) D 04/05/18 05:20 MPV 7.2 fl (7.5-11.1) L 04/05/18 05:20 CMP Sodium 130 mmol/L (136-145) L 04/05/18 05:20 Potassium 3.3 mmol/L (3.5-5.1) L 04/05/18 05:20 Chloride 99 mmol/L (98-107) 04/05/18 05:20 Carbon Dioxide 25 mmol/L (21-32) 04/05/18 05:20 Anion Gap 7 MMOL/L (8-16) L 04/05/18 05:20 BUN 15 mg/dL (7-18) 04/05/18 05:20 Creatinine 0.7 mg/dL (0.55-1.3) 04/05/18 05:20 Creat Clearance w eGFR > 60 (>60) 04/05/18 05:20 Random Glucose 89 mg/dL (74-106) 04/05/18 05:20 Calcium 7.0 mg/dL (8.5-10.1) L 04/05/18 05:20 Total Bilirubin 0.5 mg/dL (0.2-1) 04/05/18 05:20 AST 38 U/L (15-37) H 04/05/18 05:20 ALT 21 U/L (13-61) 04/05/18 05:20 Alkaline Phosphatase 117 U/L (45-117) 04/05/18 05:20 Total Protein 5.5 g/dl (6.4-8.2) L 04/05/18 05:20 Albumin 2.8 g/dl (3.4-5.0) L 04/05/18 05:20 Current Medications Generic Name Dose Route Start Last Admin Trade Name Freq PRN Reason Stop Dose Admin Enoxaparin Sodium 40 mg 04/05/18 10:00 Lovenox - SQ DAILY RYAN Hydrocortisone 10 mg 04/05/18 10:00 Cortef - PO DAILY RYAN Sodium Chloride 1,000 mls @ 100 mls/hr 04/05/18 05:30 04/05/18 06:16 Normal Saline - IV 100 mls/hr ASDIR RYAN Administration Aztreonam 1 gm/ Dextrose 50 mls @ 100 mls/hr 04/05/18 10:00 IVPB Q8H-IV RYAN Protocol Aztreonam 1 gm/ Dextrose 50 mls @ 100 mls/hr 04/05/18 10:00 IVPB 04/06/18 02:29 Q8H-IV RYAN Protocol Influenza Virus Vaccine Quadrival 60 mcg 04/05/18 12:00 Flulaval Quad [id number] IM 04/05/18 12:01 .ONCE ONE Home Medications Medication Instructions Recorded Hydrocortisone 10 mg PO DAILY 04/05/18 A/P: Patient is a 62yo female presented with having of fever 103. Myalgia. Patient was given IV antibiotic in ED. #Acute Hyponatremia: will place her on IVF, repeat labs in am # Acute viral syndrome, will get ID to see her, Neuro on the case, No Meningeal sign. Tylenol for headache that she complained about also fever of 100.5 on rectal temp. Given a dose of IV Vancomycin and Aztreonam. Neuro for possible LP. # Acute sinusitis with headache, Neck is supple, no stiffness. IV vancomycin , azactam, discussed with , No recent travelling, DVT prophylaxis - Lovenox 40 mg SQ q 24 hours. Advance directives - Full code Physical Examination Vital Signs: Vital Signs Temperature 99.5 F 04/05/18 07:56 Pulse Rate 89 04/05/18 07:56 Respiratory Rate 18 04/05/18 07:56 Blood Pressure 116/58 L 04/05/18 07:56 O2 Sat by Pulse Oximetry (%) 96 04/05/18 07:56 Labs: CBC, BMP 04/05/18 05:20 04/05/18 05:20
[2018-04-05] MEDS: ENOXAPARIN NA (PORCINE) 40 MG/0.4 ML DISP.SYRIN SQ SCH (11:41)
--- NOTE | 2018-04-05 11:57 | EKG ---
Test Reason : Blood Pressure : / mmHG Vent. Rate : 096 BPM Atrial Rate : 096 BPM P-R Int : 186 ms QRS Dur : 100 ms QT Int : 358 ms P-R-T Axes : 070 081 033 degrees QTc Int : 452 ms NORMAL SINUS RHYTHM T WAVE ABNORMALITY, CONSIDER ANTERIOR ISCHEMIA ABNORMAL ECG WHEN COMPARED WITH ECG OF 18-DEC-2017 02:47, MORE PRONOUNCED T WAVE ABNORMALITY NOW PRESENT Confirmed by ALLA ANDRADE MD ([id number]) on 04/05/2018 11:56:38 AM Referred By: Confirmed By:ALLA ANDRADE MD
[2018-04-05] MEDS ORDERED: BENZOCAINE/MENTH/CETYLPYRD CL 1 EACH LOZENGE MM PRN (14:36)
[2018-04-05] MEDS ORDERED: ACETAMINOPHEN 1000 MG/100 ML VIAL (NON FORMULARY) IVPB ONE (14:43)
--- NOTE | 2018-04-05 16:04 | CON.ID ---
Consult - History of Present Illness History of Present Illness: Asked to evaluate this 62 y.o. female with PMH of CVA, hypothyroidism, and hyponatremia with possible adrenal insufficiency presenting with c/o sore throat that began 3 days ago with fever, headache, and somnolence. She has been easily arousable and without confusion. Pt's son is at bedside who served as an supervisor stripping. He states that she was hospitalized in September 2017 with similar symptoms and underwent an LP which did not reveal any bacterial source. Denies any neck stiffness, photophobia, nausea/vomiting, shortness of breath/cough, chest pain at this time. At this time also denies dysuria/urinary frequency or urgency. As per son there has been no recent sick contacts or recent travel. In the ER she was noted to have a fever 103F, mild somnolence, and hyponatremia. 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 Endocrine: Yes: Hypothyroidism, Other (adrenal insufficiency) - Alcohol/Substance Use Hx Alcohol Use: No - Smoking History Smoking history: Never smoked Have you smoked in the past 12 months: No Aproximately how many cigarettes per day: 0 - Social History History of Recent Travel: No Home Medications - Allergies Allergies/Adverse Reactions: Allergies Allergy/AdvReac Type Severity Reaction Status Date / Time ampicillin Allergy Swelling Verified 01/03/18 15:07 Penicillins Allergy Swelling Verified 01/03/18 15:07 - Home Medications Home Medications: Ambulatory Orders Hydrocortisone 10 mg PO DAILY 04/05/18 Review of Systems - Review of Systems Constitutional: reports: Chills, Fever, Lethargy Eyes: reports: No Symptoms HENT: reports: Throat Pain, Other (frontal headache) Neck: reports: No Symptoms Cardiovascular: reports: No Symptoms Respiratory: reports: No Symptoms Gastrointestinal: reports: No Symptoms Genitourinary: reports: No Symptoms Musculoskeletal: reports: No Symptoms Integumentary: reports: No Symptoms Neurological: reports: Other (somnolence) Endocrine: reports: No Symptoms Hematology/Lymphatic: reports: No Symptoms Psychiatric: reports: No Symptoms Physical Exam Vital Signs: Vital Signs Temperature 99.6 F 04/05/18 14:28 Pulse Rate 90 04/05/18 14:28 Respiratory Rate 18 04/05/18 14:28 Blood Pressure 123/58 L 04/05/18 14:28 O2 Sat by Pulse Oximetry (%) 96 04/05/18 07:56 Constitutional: Yes: No Distress, Calm, Other (weak) Eyes: Yes: Conjunctiva Clear, EOM Intact HENT: Yes: Atraumatic, Normocephalic, Pharyngeal Erythema (minimal, no exudates) Neck: Yes: Supple, Trachea Midline Cardiovascular: Yes: Regular Rate and Rhythm Respiratory: Yes: CTA Bilaterally Gastrointestinal: Yes: Normal Bowel Sounds, Soft Renal/: Yes: WNL Musculoskeletal: Yes: WNL Labs: CBC, BMP 04/05/18 05:20 04/05/18 05:20 Laboratory Tests 04/04/18 04/04/18 04/04/18 21:20 21:20 21:20 WBC 7.7 RBC 4.07 Hgb 12.6 Hct 37.2 MCV 91.4 MCH 31.0 MCHC 33.9 RDW 12.8 D Plt Count 194 D MPV 8.0 D Absolute Neuts (auto) 5.2 Neutrophils % 67.7 Lymphocytes % 23.3 D Monocytes % 7.1 Eosinophils % 1.3 D Basophils % 0.6 Nucleated RBC % 0 PT with INR INR PTT (Actin FS) VBG pH POC VBG pCO2 POC VBG pO2 Mixed VBG HCO3 Sodium 129 L Potassium 3.5 Chloride 90 L Carbon Dioxide 27 Anion Gap 12 BUN 16 Creatinine 1.0 Creat Clearance w eGFR 55.82 Random Glucose 96 Lactic Acid Calcium 8.3 L Total Bilirubin 0.5 AST 50 H ALT 26 Alkaline Phosphatase 175 H Total Protein 8.0 Albumin 4.1 TSH 1.30 Urine Color Yellow Urine Appearance Clear Urine pH 5.0 D Ur Specific [place] 1.013 Urine Protein 2+ H Urine Glucose (UA) Negative Urine Ketones Negative Urine Blood 3+ H Urine Nitrite Negative Urine Bilirubin Negative Urine Urobilinogen Negative Ur Leukocyte Esterase Negative Urine WBC (Auto) 3 Urine RBC (Auto) 86 Urine Bacteria Few Urine Osmolality Influenza A (Rapid) Influenza B (Rapid) Group A Strep Rapid 04/04/18 04/04/18 04/04/18 21:20 21:20 21:20 WBC RBC Hgb Hct MCV MCH MCHC RDW Plt Count MPV Absolute Neuts (auto) Neutrophils % Lymphocytes % Monocytes % Eosinophils % Basophils % Nucleated RBC % PT with INR 13.70 H INR 1.16 H PTT (Actin FS) 43.0 H VBG pH POC VBG pCO2 POC VBG pO2 Mixed VBG HCO3 Sodium Potassium Chloride Carbon Dioxide Anion Gap BUN Creatinine Creat Clearance w eGFR Random Glucose Lactic Acid 2.1 H Calcium Total Bilirubin AST ALT Alkaline Phosphatase Total Protein Albumin TSH Urine Color Urine Appearance Urine pH Ur Specific [place] Urine Protein Urine Glucose (UA) Urine Ketones Urine Blood Urine Nitrite Urine Bilirubin Urine Urobilinogen Ur Leukocyte Esterase Urine WBC (Auto) Urine RBC (Auto) Urine Bacteria Urine Osmolality 483 Influenza A (Rapid) Influenza B (Rapid) Group A Strep Rapid 04/04/18 04/04/18 04/04/18 21:40 23:01 23:40 WBC RBC Hgb Hct MCV MCH MCHC RDW Plt Count MPV Absolute Neuts (auto) Neutrophils % Lymphocytes % Monocytes % Eosinophils % Basophils % Nucleated RBC % PT with INR INR PTT (Actin FS) VBG pH 7.43 H POC VBG pCO2 36.8 L POC VBG pO2 50.6 H D Mixed VBG HCO3 23.9 Sodium Potassium Chloride Carbon Dioxide Anion Gap BUN Creatinine Creat Clearance w eGFR Random Glucose Lactic Acid Calcium Total Bilirubin AST ALT Alkaline Phosphatase Total Protein Albumin TSH Urine Color Urine Appearance Urine pH Ur Specific [place] Urine Protein Urine Glucose (UA) Urine Ketones Urine Blood Urine Nitrite Urine Bilirubin Urine Urobilinogen Ur Leukocyte Esterase Urine WBC (Auto) Urine RBC (Auto) Urine Bacteria Urine Osmolality Influenza A (Rapid) Negative Influenza B (Rapid) Negative Group A Strep Rapid Negative 04/05/18 04/05/18 04/05/18 05:20 05:20 06:16 WBC 5.6 RBC 3.33 L Hgb 10.4 L Hct 30.5 L D MCV 91.7 MCH 31.3 MCHC 34.1 RDW 12.9 Plt Count 140 D MPV 7.2 L Absolute Neuts (auto) Neutrophils % Lymphocytes % Monocytes % Eosinophils % Basophils % Nucleated RBC % PT with INR INR PTT (Actin FS) VBG pH POC VBG pCO2 POC VBG pO2 Mixed VBG HCO3 Sodium 130 L Potassium 3.3 L Chloride 99 Carbon Dioxide 25 Anion Gap 7 L BUN 15 Creatinine 0.7 Creat Clearance w eGFR > 60 Random Glucose 89 Lactic Acid 0.8 Calcium 7.0 L Total Bilirubin 0.5 AST 38 H ALT 21 Alkaline Phosphatase 117 Total Protein 5.5 L Albumin 2.8 L TSH Urine Color Urine Appearance Urine pH Ur Specific [place] Urine Protein Urine Glucose (UA) Urine Ketones Urine Blood Urine Nitrite Urine Bilirubin Urine Urobilinogen Ur Leukocyte Esterase Urine WBC (Auto) Urine RBC (Auto) Urine Bacteria Urine Osmolality Influenza A (Rapid) Influenza B (Rapid) Group A Strep Rapid Imaging - Results Chest X-ray: Report Reviewed (clear) Cat Scan: Report Reviewed (CT: ethmoid acute vs. chronic sinusitis) Problem List - Problems (1) Altered mental status Code(s): R41.82 - ALTERED MENTAL STATUS, UNSPECIFIED Qualifiers: Altered mental status type: unspecified Qualified Code(s): R41.82 - Altered mental status, unspecified (2) Headache Code(s): R51 - HEADACHE (3) Hyponatremia Code(s): E87.1 - HYPO-OSMOLALITY AND HYPONATREMIA Assessment/Plan 62 y.o. female with PMH of CVA, hyponatremia, possible adrenal insufficiency, hypothyroidism presenting with sore throat, headache, weakness, and fever x 3 days. Previously admitted with similar symptoms 09/2017 with dx of possible aseptic meningitis. Rapid Strep and Influenza testing negative Fever - Likely Viral etiology Hyponatremia AMS Adrenal insufficiency Hypothyroidism -- pt refusing LP, no specific meningeal findings noted -- suggest hold antibiotics and monitor closely -- Endocrinology evaluation -- monitor temp trend for now will follow
--- NOTE | 2018-04-05 16:14 | CON.NEP ---
Consult Consult Specialty:: nephrology Reason for Consultation:: hyponatremia - History of Present Illness Chief Complaint: sore throat History of Present Illness: 62 year old woman with history of hyponatremia who was diagnosed with adrenal insufficiency 3 months ago and has been on steroids, presents with fever and sore throa. Her son states that she has been like this when she does not take her steroids which he says were reduced recently and she only takes irregularly. She is comfortable lying flat - History Source History Provided By: Family Member Limitations to Obtaining History: No Limitations - Past Medical History Endocrine: Yes: [place]'s Disease, Hypothyroidism - Alcohol/Substance Use Hx Alcohol Use: No - Smoking History Smoking history: Never smoked Have you smoked in the past 12 months: No Aproximately how many cigarettes per day: 0 Home Medications - Allergies Allergies/Adverse Reactions: Allergies Allergy/AdvReac Type Severity Reaction Status Date / Time ampicillin Allergy Swelling Verified 01/03/18 15:07 Penicillins Allergy Swelling Verified 01/03/18 15:07 - Home Medications Home Medications: Ambulatory Orders Hydrocortisone 10 mg PO DAILY 04/05/18 Review of Systems - Review of Systems Constitutional: reports: Fever, Weakness Eyes: reports: No Symptoms HENT: reports: Throat Pain Neck: reports: No Symptoms Cardiovascular: reports: No Symptoms Respiratory: reports: No Symptoms Gastrointestinal: reports: No Symptoms Genitourinary: reports: No Symptoms Breasts: reports: No Symptoms Reported Musculoskeletal: reports: No Symptoms Integumentary: reports: No Symptoms Neurological: reports: No Symptoms Endocrine: reports: No Symptoms Hematology/Lymphatic: reports: No Symptoms Psychiatric: reports: No Symptoms Nephrology Consult - Height Height: 4 ft 6 in - Weight Weight: 100 lb 0.2 oz - BMI Body Mass Index (BMI): 24.0 - Lab Results CBC,BMP: CBC, BMP 04/05/18 05:20 04/05/18 05:20 Anion Gap: Anion Gap Anion Gap 7 MMOL/L (8-16) L 04/05/18 05:20 - Imaging Chest X-ray: Report Reviewed (clear) - Physical Examination Vital Signs: Vital Signs Temperature 99.6 F 04/05/18 14:28 Pulse Rate 90 04/05/18 14:28 Respiratory Rate 18 04/05/18 14:28 Blood Pressure 123/58 L 04/05/18 14:28 O2 Sat by Pulse Oximetry (%) 96 04/05/18 07:56 Constitutional: Yes: No Distress, Calm Eyes: Yes: Conjunctiva Clear, EOM Intact HENT: Yes: Atraumatic, Normocephalic Neck: Yes: Supple, Trachea Midline Cardiovascular: Yes: Regular Rate and Rhythm Respiratory: Yes: Regular, CTA Bilaterally Gastrointestinal: Yes: Normal Bowel Sounds, Soft Renal/: Yes: WNL Musculoskeletal: Yes: WNL Edema: No Neurological: Yes: Alert, Oriented Psychiatric: Yes: Alert, Oriented Assessment/Plan IMPRESSION adrenal insufficiency based on previous cortisol level of 1 hyponatremia has improved with fluids febrile illness probably worsened by absence of steroids h/o hypothyroidism PLAN would give higher dose of hydrocortisone and then taper to a dose of about 10 and 5 hydrate monitor sodium and creat recheck tsh and check t4- pt has h/o hypothyroid but is not on meds MV
[2018-04-05] MEDS: HYDROCORTISONE 10 MG TABLET PO SCH (21:15)
[2018-04-06] MEDS: SODIUM CHLORIDE 1,000 ML IV SCH (05:00)
[2018-04-06] MEDS: FLU VACCINE QUAD 60 MCG/0.5 ML (MDV 18-19) IM ONE ×2 (07:19→07:26)
[2018-04-06 08:18] LABS: BASO % 0.6 % (0-2.0); EOS % 2.6 % (0-4.5); HEMATOCRIT 32.4 % (32.4-45.2); HEMOGLOBIN 10.7 GM/dL (10.7-15.3); MCH 30.7 pg (25.7-33.7); MCHC 33.2 g/dl (32.0-36.0); MEAN CELL VOLUME 92.7 fl (80-96); MEAN PLT VOLUME 7.8 fl (7.5-11.1); MONO % 7.5 % (3.8-10.2); NEUT % 65.3 % (42.8-82.8); PLATELET COUNT 164 K/MM3 (134-434); RBC 3.49 M/mm3 (3.60-5.2); RDW 12.9 % (11.6-15.6); WHITE BLOOD COUNT 2.9 K/mm3 (4.0-10.0)
[2018-04-06 08:41] LABS: ALBUMIN 3.2 g/dl (3.4-5.0); ALK PHOS 131 U/L (45-117); ANION GAP 5 MMOL/L (8-16); BILIRUBIN,TOTAL 0.3 mg/dL (0.2-1); BLOOD UREA NITROGEN 5 mg/dL (7-18); CALCIUM 8.2 mg/dL (8.5-10.1); CHLORIDE 110 mmol/L (98-107); CO2 27 mmol/L (21-32); CREATININE 0.6 mg/dL (0.55-1.3); GLUCOSE,RANDOM 86 mg/dL (74-106); MAGNESIUM 2.1 mg/dL (1.8-2.4); PHOSPHOROUS 2.4 mg/dL (2.5-4.9); POTASSIUM 3.6 mmol/L (3.5-5.1); SGOT/AST 40 U/L (15-37); SGPT/ALT 21 U/L (13-61); SODIUM 142 mmol/L (136-145); TOT PROT 6.3 g/dl (6.4-8.2)
--- NOTE | 2018-04-06 08:43 | CON.NEURO ---
Consult Consult Specialty:: neurology Reason for Consultation:: AMS - History of Present Illness History of Present Illness: Asked to evaluate this 62 y.o. female with PMH of CVA, hypothyroidism, and hyponatremia with possible adrenal insufficiency presenting with c/o sore throat that began 3 days ago with fever, headache, and somnolence. She has been easily arousable and without confusion. Pt's son is at bedside who served as an sign language interpreter. He states that she was hospitalized in September 2017 with similar symptoms and underwent an LP which did not reveal any bacterial source. Denies any neck stiffness, photophobia, nausea/vomiting, shortness of breath/cough, chest pain at this time. At this time also denies dysuria/urinary frequency or urgency. As per son there has been no recent sick contacts or recent travel. In the ER she was noted to have a fever 103F, mild somnolence, and hyponatremia. I saw and examined the pt at the bedside; she denies any headache , dizziness , numbness or weakness. Her MS is improved. 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 Endocrine: Yes: [place]'s Disease, Hypothyroidism - Alcohol/Substance Use Hx Alcohol Use: No - Smoking History Smoking history: Never smoked Have you smoked in the past 12 months: No Aproximately how many cigarettes per day: 0 - Social History History of Recent Travel: No Home Medications - Allergies Allergies/Adverse Reactions: Allergies Allergy/AdvReac Type Severity Reaction Status Date / Time ampicillin Allergy Swelling Verified 01/03/18 15:07 Penicillins Allergy Swelling Verified 01/03/18 15:07 - Home Medications Home Medications: Ambulatory Orders Hydrocortisone 10 mg PO DAILY 04/05/18 Review of Systems - Review of Systems Constitutional: reports: No Symptoms Eyes: reports: No Symptoms HENT: reports: No Symptoms Neck: reports: No Symptoms Cardiovascular: reports: No Symptoms Respiratory: reports: No Symptoms Genitourinary: reports: No Symptoms Physical Exam-Neuro Vital Signs: Vital Signs Temperature 98.2 F 04/06/18 06:25 Pulse Rate 79 04/06/18 06:25 Respiratory Rate 20 04/06/18 06:25 Blood Pressure 143/71 04/06/18 06:25 O2 Sat by Pulse Oximetry (%) 96 04/05/18 21:00 Constitutional: Yes: Well Nourished Neck: Yes: Supple Cardiovascular: Yes: Regular Rate and Rhythm Respiratory: Yes: CTA Bilaterally Musculoskeletal: Yes: WNL Edema: No Psychiatric: Yes: WNL Labs: CBC, BMP 04/06/18 07:15 04/06/18 07:15 INR, PTT INR 1.16 (0.83-1.09) H 04/04/18 21:20 - Neuro Exam Level Of Consciousness: Yes: Oriented to Person, Oriented to Place, Oriented to Time Eyes: Yes: PERRLA Speech: WNL Cranial Nerves II-XII Intact: Yes Gag: Present DTR's: 1+ Left Bicep, 1+ Right Bicep, 1+ Left Tricep, 1+ Right Tricep, 1+ Left Brachioradialis, 1+ Right Brachioradialis, 1+ Left Achilles, 1+ Right Achilles Babinski: Absent Response to light touch: Normal Response to pain prick: Normal Coordination: Normal: Finger to Nose, Heel to [place] Motor Strength: 5/5: Left Arm, Right Arm, Left Leg, Right Leg Gait: Normal Imaging - Results Cat Scan: Report Reviewed (No acute finding.), Image Reviewed Problem List - Problems (1) Altered mental status Code(s): R41.82 - ALTERED MENTAL STATUS, UNSPECIFIED Qualifiers: Altered mental status type: unspecified Qualified Code(s): R41.82 - Altered mental status, unspecified (2) Candidiasis of breast Code(s): B37.89 - OTHER SITES OF CANDIDIASIS (3) Headache Code(s): R51 - HEADACHE (4) Hyponatremia Code(s): E87.1 - HYPO-OSMOLALITY AND HYPONATREMIA Assessment/Plan Asked to evaluate this 62 y.o. female with PMH of stroke , hypothyroidism, and hyponatremia with possible adrenal insufficiency presenting with c/o sore throat that began 3 days ago with fever and AMS. Her sym resolved ; CTH -, exam nonfocal ; AMS due to metabolic encephalopathy due to hyponatremia, exam unremarkable -> has resolved; no sign or sym of meningitis . Monitor Na F/U endocri F/U as OP Health maintenance per primary team. Thanks Grant Rey MD [phone]
[2018-04-06] MEDS ORDERED: PT OWN MED DRAWER 7, Y5N ONE (10:11)
[2018-04-06] MEDS: ENOXAPARIN NA (PORCINE) 40 MG/0.4 ML DISP.SYRIN SQ SCH (10:20)
[2018-04-06] MEDS: HYDROCORTISONE 10 MG TABLET PO SCH (10:20)
[2018-04-06 11:04] LABS: OSMOLALITY,SERUM 290 mosm/kg (278-305)
--- NOTE | 2018-04-06 11:10 | PN ---
Physical Exam: SUBJECTIVE: Patient seen and examined OBJECTIVE: Vital Signs Period Temp Pulse Resp BP Sys/Rios Pulse Ox Last 24 Hr 97.2 F-99.6 F 70-90 18-20 111-143/58-71 96 GENERAL: The patient is awake, alert, and fully oriented, in no acute distress. HEAD: Normal with no signs of trauma. EYES: PERRL, extraocular movements intact, sclera anicteric, conjunctiva clear. No ptosis. ENT: Ears normal, nares patent, oropharynx clear without exudates, moist mucous membranes. NECK: Trachea midline, full range of motion, supple. LUNGS: Breath sounds equal, clear to auscultation bilaterally, no wheezes, no crackles, no accessory muscle use. HEART: Regular rate and rhythm, S1, S2 without murmur, rub or gallop. ABDOMEN: Soft, nontender, nondistended, normoactive bowel sounds, no guarding, no rebound, no hepatosplenomegaly, no masses. EXTREMITIES: 2+ pulses, warm, well-perfused, no edema. NEUROLOGICAL: Cranial nerves II through XII grossly intact. Normal speech, gait not observed. PSYCH: Normal mood, normal affect. SKIN: Warm, dry, normal turgor, no rashes or lesions noted Laboratory Results - last 24 hr 04/05/18 04/05/18 04/06/18 05:20 19:00 07:15 WBC RBC Hgb Hct MCV MCH MCHC RDW Plt Count MPV Absolute Neuts (auto) Neutrophils % Lymphocytes % Monocytes % Eosinophils % Basophils % Nucleated RBC % Sodium 130 L 142 Potassium 3.3 L 3.6 Chloride 99 110 H Carbon Dioxide 25 27 Anion Gap 7 L 5 L BUN 15 5 L Creatinine 0.7 0.6 Creat Clearance w eGFR > 60 > 60 Random Glucose 89 86 Serum Osmolality 290 Calcium 7.0 L 8.2 L Phosphorus 2.4 L Magnesium 2.1 Total Bilirubin 0.5 0.3 AST 38 H 40 H ALT 21 21 Alkaline Phosphatase 117 131 H Total Protein 5.5 L 6.3 L Albumin 2.8 L 3.2 L TSH 1.84 Ur Random Sodium 59 04/06/18 07:15 WBC 2.9 L RBC 3.49 L Hgb 10.7 Hct 32.4 MCV 92.7 MCH 30.7 MCHC 33.2 RDW 12.9 Plt Count 164 MPV 7.8 Absolute Neuts (auto) 1.9 Neutrophils % 65.3 Lymphocytes % 24.0 Monocytes % 7.5 Eosinophils % 2.6 D Basophils % 0.6 Nucleated RBC % 0 Sodium Potassium Chloride Carbon Dioxide Anion Gap BUN Creatinine Creat Clearance w eGFR Random Glucose Serum Osmolality Calcium Phosphorus Magnesium Total Bilirubin AST ALT Alkaline Phosphatase Total Protein Albumin TSH Ur Random Sodium Active Medications Generic Name Dose Route Start Last Admin Trade Name Freq PRN Reason Stop Dose Admin Benzocaine/Menthol 1 each 04/05/18 14:36 04/05/18 17:40 Cepacol Lozenge - MM 1 each PRN PRN Administration SORE THROAT Enoxaparin Sodium 40 mg 04/05/18 10:00 04/06/18 10:20 Lovenox - SQ 40 mg DAILY RYAN Administration Hydrocortisone 10 mg 04/05/18 22:00 04/06/18 10:20 Cortef - PO 10 mg BID RYAN Administration Sodium Chloride 1,000 mls @ 100 mls/hr 04/05/18 05:30 04/06/18 05:00 Normal Saline - IV 100 mls/hr ASDIR RYAN Administration ASSESSMENT/PLAN:
--- NOTE | 2018-04-06 11:47 | PN ---
Progress Note (short form) - Note Progress Note: RENAL Pt is awake and alert says she feels better a=except she still has a cold Last Vital Signs Temp Pulse Resp BP Pulse Ox 98.2 F 79 20 143/71 96 04/06/18 06:25 04/06/18 06:25 04/06/18 06:25 04/06/18 06:25 04/05/18 21:00 lungs clear cvs s1s2 rr abd soft ext no edema neuro a+ox3 CBC, BMP 04/06/18 07:15 04/06/18 07:15 Current Medications Generic Name Dose Route Start Last Admin Trade Name Freq PRN Reason Stop Dose Admin Benzocaine/Menthol 1 each 04/05/18 14:36 04/05/18 17:40 Cepacol Lozenge - MM 1 each PRN PRN Administration SORE THROAT Enoxaparin Sodium 40 mg 04/05/18 10:00 04/06/18 10:20 Lovenox - SQ 40 mg DAILY RYAN Administration Hydrocortisone 10 mg 04/05/18 22:00 04/06/18 10:20 Cortef - PO 10 mg BID RYAN Administration Sodium Chloride 1,000 mls @ 100 mls/hr 04/05/18 05:30 04/06/18 05:00 Normal Saline - IV 100 mls/hr ASDIR RYAN Administration IMPRESSION adrenal insufficiency based on previous cortisol level of 1 hyponatremia has improved with fluids and steroids febrile illness probably worsened by absence of steroids h/o hypothyroidism PLAN would give higher dose of hydrocortisone and then taper to a dose of about 10 and 5 dc ivf and observe monitor sodium and creat MV
--- NOTE | 2018-04-06 13:07 | PN ---
Progress Note, Physician History of Present Illness: stable no complaints no fever feels well no headache - Current Medication List Current Medications: Active Medications Benzocaine/Menthol (Cepacol Lozenge -) 1 each MM PRN PRN PRN Reason: SORE THROAT Last Admin: 04/05/18 17:40 Dose: 1 each Enoxaparin Sodium (Lovenox -) 40 mg SQ DAILY [facility] Last Admin: 04/06/18 10:20 Dose: 40 mg Hydrocortisone (Cortef -) 10 mg PO BID [facility] Last Admin: 04/06/18 10:20 Dose: 10 mg - Objective Vital Signs: Vital Signs Temperature 98.6 F 04/06/18 10:00 Pulse Rate 87 04/06/18 10:00 Respiratory Rate 20 04/06/18 10:00 Blood Pressure 134/73 04/06/18 10:00 O2 Sat by Pulse Oximetry (%) 96 04/06/18 09:00 Constitutional: Yes: No Distress, Calm Cardiovascular: Yes: Regular Rate and Rhythm Respiratory: Yes: Regular, CTA Bilaterally Gastrointestinal: Yes: Normal Bowel Sounds, Soft Musculoskeletal: Yes: WNL Extremities: Yes: WNL Neurological: Yes: Alert, Oriented Psychiatric: Yes: Alert, Oriented Labs: CBC, BMP 04/06/18 07:15 04/06/18 07:15 INR, PTT INR 1.16 (0.83-1.09) H 04/04/18 21:20 Assessment/Plan Problem List - Problems (1) Altered mental status Code(s): R41.82 - ALTERED MENTAL STATUS, UNSPECIFIED Qualifiers: Altered mental status type: unspecified Qualified Code(s): R41.82 - Altered mental status, unspecified (2) Headache Code(s): R51 - HEADACHE (3) Hyponatremia Code(s): E87.1 - HYPO-OSMOLALITY AND HYPONATREMIA Assessment/Plan 62 y.o. female with PMH of CVA, hyponatremia, possible adrenal insufficiency, hypothyroidism presenting with sore throat, headache, weakness, and fever x 3 days. Previously admitted with similar symptoms 09/2017 with dx of possible aseptic meningitis. Rapid Strep and Influenza testing negative continue to monitor no abx rest as per the team patient stable
--- NOTE | 2018-04-06 14:33 | DS ---
Physical Exam: SUBJECTIVE: Patient seen and examined OBJECTIVE: Vital Signs Period Temp Pulse Resp BP Sys/Jacobo Pulse Ox Last 24 Hr 97.2 F-98.6 F 70-87 19-20 111-143/58-73 96-96 PHYSICAL EXAM GENERAL: The patient is awake, alert, and fully oriented, in no acute distress. HEAD: Normal with no signs of trauma. LUNGS: Breath sounds equal, clear to auscultation bilaterally, no wheezes, no crackles, no accessory muscle use. HEART: Regular rate and rhythm, S1, S2 without murmur, rub or gallop. ABDOMEN: Soft, nontender, nondistended, normoactive bowel sounds, no guarding, no rebound, no hepatosplenomegaly, no masses. EXTREMITIES: 2+ pulses, warm, well-perfused, no edema. NEUROLOGICAL: Cranial nerves II through XII grossly intact. Normal speech, gait not observed. PSYCH: Normal mood, normal affect. SKIN: Warm, dry, normal turgor, no rashes or lesions noted. LABS Laboratory Results - last 24 hr 04/05/18 04/05/18 04/06/18 05:20 19:00 07:15 WBC RBC Hgb Hct MCV MCH MCHC RDW Plt Count MPV Absolute Neuts (auto) Neutrophils % Lymphocytes % Monocytes % Eosinophils % Basophils % Nucleated RBC % Sodium 130 L 142 Potassium 3.3 L 3.6 Chloride 99 110 H Carbon Dioxide 25 27 Anion Gap 7 L 5 L BUN 15 5 L Creatinine 0.7 0.6 Creat Clearance w eGFR > 60 > 60 Random Glucose 89 86 Serum Osmolality 290 Calcium 7.0 L 8.2 L Phosphorus 2.4 L Magnesium 2.1 Total Bilirubin 0.5 0.3 AST 38 H 40 H ALT 21 21 Alkaline Phosphatase 117 131 H Total Protein 5.5 L 6.3 L Albumin 2.8 L 3.2 L TSH 1.84 Ur Random Sodium 59 04/06/18 07:15 WBC 2.9 L RBC 3.49 L Hgb 10.7 Hct 32.4 MCV 92.7 MCH 30.7 MCHC 33.2 RDW 12.9 Plt Count 164 MPV 7.8 Absolute Neuts (auto) 1.9 Neutrophils % 65.3 Lymphocytes % 24.0 Monocytes % 7.5 Eosinophils % 2.6 D Basophils % 0.6 Nucleated RBC % 0 Sodium Potassium Chloride Carbon Dioxide Anion Gap BUN Creatinine Creat Clearance w eGFR Random Glucose Serum Osmolality Calcium Phosphorus Magnesium Total Bilirubin AST ALT Alkaline Phosphatase Total Protein Albumin TSH Ur Random Sodium HOSPITAL COURSE: Date of Admission:04/05/18 Date of Discharge: 04/06/18 Ms. Sanders is a 62 year old female with history of hyponatremia, nephrolithiasis , CVA and hypothyroidism, adrenal insufficiency, who presented with a fever, altered mental status, and sore throat, no leukocytosis. Patient worked up for infectious and viral etiology. Head CT negative. CXR and urine were negative. This was most likely due to an acute viral process. She was found to be hyponatremic. IVF corrected sodium appropriately. Mental status had improved and has been afebrile since admission. AMS was most likely due to metabolic encephalopathy. Infectious disease and neurology have also evaluated patient. Nephrology also evaluated patient who recommenced increasing hydrocortisone due to history of adrenal insufficiency. We have increased to 10mg hydrocortisone bid, for 5 days. Plan to follow up with primary and specialists. Minutes to complete discharge: 40 Discharge Summary Reason For Visit: ALTERED MENTAL STATUS Current Active Problems Altered mental status (Acute) Condition: Improved - Instructions Diet, Activity, Other Instructions: Ms. Sanders, your fever has resolved and your electrolytes have stabilized. We do not recommence antibiotics at this time, this was most likely due to and acute viral process. Your headache, and altered mental status was most likely due to your low sodium. We would like you to follow up with your primary and your petrol tanker driver as well, due to your history of adrenal insufficiency. We have increase your hydrocortisone dose to 10mg twice a daily for the next five days. You can follow up with your petrol tanker driver and divorce attorney to discuss decreasing dose at that time. If you experience any worsening of symptoms including intractable fevers, chills , nausea, vomiting, please return to the emergency room. Por la proxima delores jacobo; louis wyatt hydrocoritsona dos veces por duncan. Despues habla con wyatt doctor primario y endocrinologico. Disposition: HOME - Home Medications Comprehensive Discharge Medication List: Ambulatory Orders Hydrocortisone 10 mg PO DAILY 04/05/18 This patient is new to me today: Yes Date on this admission: 04/06/18 Emergency Visit: Yes ED Registration Date: 04/05/18 Care time: The patient presented to the Emergency Department on the above date and was hospitalized for further evaluation of their emergent condition. Critical Care patient: No - Discharge Referral Referred to [facility] Med P.C.: No
[2018-04-06 14:42] VITALS: BP 135/68; PULSE 77; TEMP 97.8
--- NOTE | 2018-04-06 14:58 | PN ---
Teaching Attending Note Name of Resident: Mayela Shepard ATTENDING PHYSICIAN STATEMENT I saw and evaluated the patient. I reviewed the resident's note and discussed the case with the resident. I agree with the resident's findings and plan as documented. SUBJECTIVE: Patient is feeling better with no acute distress, Wants to go home, no new events, no fever overnight. OBJECTIVE: Vital Signs Temperature 97.8 F 04/06/18 14:40 Pulse Rate 77 04/06/18 14:40 Respiratory Rate 18 04/06/18 14:40 Blood Pressure 135/68 04/06/18 14:40 O2 Sat by Pulse Oximetry (%) 96 04/06/18 09:00 GENERAL: Awake, alert, and fully oriented, in no acute distress. HEAD: Normal with no signs of trauma. EYES: Pupils equal, round and reactive to light, extraocular movements intact EARS, NOSE, THROAT: oropharynx clear without exudates. Moist mucous membranes. NECK: Normal range of motion, supple without lymphadenopathy, JVD, or masses. LUNGS: Breath sounds equal, clear to auscultation bilaterally. No wheezes, and no crackles. No accessory muscle use. HEART: RRR, normal S1 and S2 without murmur, rub or gallop. ABDOMEN: Soft, nontender, not distended, normoactive bowel sounds, no guarding, no rebound, no masses. EXTREMITIES: 2+ pulses, warmNo calf tenderness. No peripheral edema. NEUROLOGICAL: Cranial nerves II-XII intact. Normal speech. no meningeal sign. PSYCHIATRIC: Cooperative. Good eye contact. Appropriate mood and affect. SKIN: Warm, dry, normal turgor, no rashes or lesions noted, normal capillary refill. CBCD WBC 2.9 K/mm3 (4.0-10.0) L 04/06/18 07:15 RBC 3.49 M/mm3 (3.60-5.2) L 04/06/18 07:15 Hgb 10.7 GM/dL (10.7-15.3) 04/06/18 07:15 Hct 32.4 % (32.4-45.2) 04/06/18 07:15 MCV 92.7 fl (80-96) 04/06/18 07:15 MCHC 33.2 g/dl (32.0-36.0) 04/06/18 07:15 RDW 12.9 % (11.6-15.6) 04/06/18 07:15 Plt Count 164 K/MM3 (134-434) 04/06/18 07:15 MPV 7.8 fl (7.5-11.1) 04/06/18 07:15 CMP Sodium 142 mmol/L (136-145) 04/06/18 07:15 Potassium 3.6 mmol/L (3.5-5.1) 04/06/18 07:15 Chloride 110 mmol/L (98-107) H 04/06/18 07:15 Carbon Dioxide 27 mmol/L (21-32) 04/06/18 07:15 Anion Gap 5 MMOL/L (8-16) L 04/06/18 07:15 BUN 5 mg/dL (7-18) L 04/06/18 07:15 Creatinine 0.6 mg/dL (0.55-1.3) 04/06/18 07:15 Creat Clearance w eGFR > 60 (>60) 04/06/18 07:15 Random Glucose 86 mg/dL (74-106) 04/06/18 07:15 Calcium 8.2 mg/dL (8.5-10.1) L 04/06/18 07:15 Total Bilirubin 0.3 mg/dL (0.2-1) 04/06/18 07:15 AST 40 U/L (15-37) H 04/06/18 07:15 ALT 21 U/L (13-61) 04/06/18 07:15 Alkaline Phosphatase 131 U/L (45-117) H 04/06/18 07:15 Total Protein 6.3 g/dl (6.4-8.2) L 04/06/18 07:15 Albumin 3.2 g/dl (3.4-5.0) L 04/06/18 07:15 Current Medications Generic Name Dose Route Start Last Admin Trade Name Freq PRN Reason Stop Dose Admin Benzocaine/Menthol 1 each 04/05/18 14:36 04/05/18 17:40 Cepacol Lozenge - MM 1 each PRN PRN Administration SORE THROAT Enoxaparin Sodium 40 mg 04/05/18 10:00 04/06/18 10:20 Lovenox - SQ 40 mg DAILY [facility] Administration Hydrocortisone 10 mg 04/05/18 22:00 04/06/18 10:20 Cortef - PO 10 mg BID [facility]YAN Administration Home Medications Medication Instructions Recorded Hydrocortisone 10 mg PO DAILY 04/05/18 Hydrocortisone 10 mg PO BID 5 Days #10 tablet 04/06/18 ASSESSMENT AND PLAN: A/P: Patient is a 62yo female presented with having of fever 103. Myalgia. Patient was given IV antibiotic in ED. #Acute Hyponatremia: improved. # Acute viral syndrome, improved. id is ok to discharge the patient. no further fever or chills. neuro consult appreciated. No Meningeal sign. no further antibiotic needed as per id. # Acute sinusitis with headache, improved. no stiffness. no further antibiotic needed. patient has no recent travelling. discharge patient home.
[2018-04-07 16:16] LABS: CMV IgM < 30.0 AU/mL (0.0-29.9)
== END 2018-04-06 15:21 | disposition home or self-care (01) | DRG 723 ==
LOC: JER 20:41 → JERBED 04-05 01:20 → J6S 04-05 07:00
PROVIDERS: ADMIT Internal Medicine; ATTEND Internal Medicine
DX: B34.9 Viral infection, unspecified (principal); G93.41 Metabolic encephalopathy; B37.89 Other sites of candidiasis; E87.1 Hypo-osmolality and hyponatremia; E27.40 Unspecified adrenocortical insufficiency; E03.9 Hypothyroidism, unspecified; J01.90 Acute sinusitis, unspecified; Z86.73 Personal history of transient ischemic attack (TIA), and cerebral infarction without residual deficits; Z88.0 Allergy status to penicillin; R51 Headache; R41.82 Altered mental status, unspecified
CPT/HCPCS: 36415; 70450-TC; 71045-TC-FY; 80053; 81003; 81015; 82803; 83605; 83735; 83930; 83935; 84100; 84300; 84436; 84443; 85025; 85027; 85610; 85730; 86644; 86645; 86664; 87040; 87070; 87086; 87804; 87880; 90688; 93005; 93010; 99285-25; J0131; J7030

== ENCOUNTER 2018-11-07 16:20 | Emergency (ER) | payer SELFPAY ==
[2018-11-07 16:26] VITALS: BP 117/53; PULSE 71; BMI 52.2
--- NOTE | 2018-11-07 16:26 | PDOC ---
Rapid Medical Evaluation Chief Complaint: Back Pain Time Seen by Provider: 11/07/18 16:24 Medical Evaluation: Allergies Allergy/AdvReac Type Severity Reaction Status Date / Time ampicillin Allergy Swelling Verified 11/07/18 16:23 Penicillins Allergy Swelling Verified 11/07/18 16:23 11/07/18 16:25 I have performed a brief in-person evaluation of this patient. The patient presents with a chief complaint of: upper left back/upper left abd pain Pertinent physical exam findings:stable and in NAD, non-focal I have ordered the following:labs The patient will proceed to the ED for further evaluation.
[2018-11-07] MEDS ORDERED: KETOROLAC TROMETHAMINE 60 MG/2 ML VIAL IM ONE (17:43)
[2018-11-07 17:46] LABS: BASO % 0.6 % (0-2.0); EOS % 4.9 % (0-4.5); HEMOGLOBIN 13.4 GM/dL (10.7-15.3); LYMPH % 47.7 % (8-40); MCH 30.8 pg (25.7-33.7); MCHC 34.5 g/dl (32.0-36.0); MEAN CELL VOLUME 89.2 fl (80-96); MEAN PLT VOLUME 7.3 fl (7.5-11.1); MONO % 5.7 % (3.8-10.2); NEUT % 41.1 % (42.8-82.8); PLATELET COUNT 212 K/MM3 (134-434); RBC 4.37 M/mm3 (3.60-5.2); RDW 13.5 % (11.6-15.6); WHITE BLOOD COUNT 4.6 K/mm3 (4.0-10.0)
--- NOTE | 2018-11-07 17:57 | PDOC ---
History of Present Illness - General Chief Complaint: Back Pain Stated Complaint: BACK PAIN Time Seen by Provider: 11/07/18 16:24 History Source: Patient Exam Limitations: No Limitations - History of Present Illness Initial Comments: 11/07/18 17:01 63-year-old female with history of sodium disorder currently on hydrocortisone for regulation presents to ED with complaints of left sided back pain radiating to her left upper quadrant since this morning. Patient denies nausea vomiting diarrhea, fever, chills shortness of breath or cough. Patient denies palpitations diaphoresis, dizziness, or chest pain. Timing/Duration: 24 hours Severity: mild Associated Symptoms: reports: other (left chest / left back) Past History - Travel Traveled outside of the country in the last 30 days: No Close contact w/someone who was outside of country & ill: No - Past Medical History Allergies/Adverse Reactions: Allergies Allergy/AdvReac Type Severity Reaction Status Date / Time ampicillin Allergy Swelling Verified 11/07/18 16:23 Penicillins Allergy Swelling Verified 11/07/18 16:23 Home Medications: Ambulatory Orders Hydrocortisone 10 mg PO DAILY 04/05/18 Hydrocortisone 10 mg PO BID 5 Days #10 tablet 04/06/18 Anemia: No Asthma: No Cancer: No Cardiac Disorders: No CVA: 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) COPD: No HTN: Yes Thyroid Disease: Yes (has not taken medication >7yrs) - Surgical History Abdominal Surgery: No Appendectomy: No Cholecystectomy: No Gastric Stapling: No - Suicide/Smoking/Psychosocial Hx Smoking Status: No Smoking History: Never smoked Have you smoked in the past 12 months: No Number of Cigarettes Smoked Daily: 0 Information on smoking cessation initiated: No Hx Alcohol Use: No Drug/Substance Use Hx: No Substance Use Type: None Hx Substance Use Treatment: No Patient Lives Alone: No Lives with/in: spouse/SO Review of Systems - Review of Systems Able to Perform ROS?: Yes Constitutional: No: Symptoms Reported HEENTM: No: Symptoms Reported Respiratory: No: Symptoms reported Cardiac (ROS): No: Symptoms Reported ABD/GI: Yes: Abdominal cramping (LUQ) : No: Symptoms Reported Musculoskeletal: Yes: Back Pain Integumentary: No: Symptoms Reported Neurological: No: Symptoms reported *Physical Exam - Vital Signs Last Vital Signs Temp Pulse Resp BP Pulse Ox 71 16 117/53 L 95 11/07/18 16:23 11/07/18 16:23 11/07/18 16:23 11/07/18 16:23 - Physical Exam General Appearance: Yes: Nourished, Appropriately Dressed. No: Apparent Distress HEENT: negative: Pale Conjunctivae Neck: positive: Normal Thyroid Respiratory/Chest: positive: Lungs Clear, Normal Breath Sounds. negative: Chest Tender, Respiratory Distress, Accessory Muscle Use Cardiovascular: positive: Regular Rhythm, Regular Rate. negative: Murmur Gastrointestinal/Abdominal: positive: Soft, Tenderness (luq). negative: Distended, Guarding, Rebound Musculoskeletal: positive: CVA Tenderness (L) (mild) Extremity: positive: Normal Inspection Integumentary: positive: Normal Color, Warm, Moist Neurologic: positive: Motor Strength 5/5 (ambulatory) Heart Score/ECG Review - ECG Intrepretation Rhythm: Regular Rhythm (rate 57, qtc 471 ms, no st elevation or depression) ED Treatment Course - LABORATORY CBC & Chemistry Diagram: 11/07/18 17:29 11/07/18 17:29 - ADDITIONAL ORDERS Additional order review: 11/07/18 17:29 RBC 4.37 MCV 89.2 MCHC 34.5 RDW 13.5 MPV 7.3 L Neutrophils % 41.1 L D Lymphocytes % 47.7 H D Monocytes % 5.7 Eosinophils % 4.9 H D Basophils % 0.6 - RADIOLOGY Radiology Studies Ordered: Category Date Time Status CHEST X-RAY PORTABLE* [RAD] Stat Radiology 11/07/18 17:42 Ordered Medical Decision Making - Medical Decision Making 11/07/18 17:58 CC: Back soreness worsened with movement radiating to the left upper quadrant. Patient has no other complaints at this time Exam. Patient mild left CVA tenderness and left upper quadrant pain. Lungs clear to auscultation vital signs stable Plan labs, urine, chest x-ray and EKG ordered 11/07/18 18:36 Laboratory Tests 11/07/18 11/07/18 17:29 17:29 WBC 4.6 Hgb 13.4 Hct 39.0 D MPV 7.3 L Neutrophils % 41.1 L D Lymphocytes % 47.7 H D Eosinophils % 4.9 H D Sodium 136 Potassium 4.2 Chloride 100 Carbon Dioxide 32 Anion Gap 4 L BUN 12.4 Creatinine 0.9 Est GFR (CKD-EPI)AfAm 77.77 Est GFR (CKD-EPI)NonAf 67.10 Random Glucose 96 Calcium 9.2 Total Bilirubin 0.7 AST 23 ALT 18 Troponin I < 0.02 11/07/18 18:37 Pt states feeling better. Will send home with tylenol. 11/07/18 18:41 Laboratory Tests 04/04/18 11/07/18 21:20 18:00 Urine Blood 2+ H Urine Nitrite Negative Urine Bilirubin Negative Ur Leukocyte Esterase Trace Urine WBC (Auto) 1 Urine RBC (Auto) 86 72 *DC/Admit/Observation/Transfer Diagnosis at time of Disposition: Abdominal pain - Discharge Dispostion Disposition: HOME Condition at time of disposition: Improved - Referrals Referrals: Ирина Cortez MD [Primary Care Provider] - - Patient Instructions Printed Discharge Instructions: DI for Abdominal Pain-Adult Additional Instructions: Take Tylenol 650 mg every 6-8 hours for discomfort. Drink plenty of fluids and if your symptoms worsen despite above recommendations please return to the ED or follow-up with your primary care physician. - Post Discharge Activity
[2018-11-07] MEDS ORDERED: KETOROLAC TROMETHAMINE 60 MG/2 ML VIAL ONE (17:58)
[2018-11-07 18:12] LABS: ALBUMIN 4.2 g/dl (3.4-5.0); ALK PHOS 100 U/L (45-117); ANION GAP 4 MMOL/L (8-16); BILIRUBIN,TOTAL 0.7 mg/dL (0.2-1); BLOOD UREA NITROGEN 12.4 mg/dL (7-18); CALCIUM 9.2 mg/dL (8.5-10.1); CHLORIDE 100 mmol/L (98-107); CO2 32 mmol/L (21-32); CREATININE 0.9 mg/dL (0.55-1.3); GLUCOSE,RANDOM 96 mg/dL (74-106); POTASSIUM 4.2 mmol/L (3.5-5.1); SGOT/AST 23 U/L (15-37); SGPT/ALT 18 U/L (13-61); SODIUM 136 mmol/L (136-145); TOT PROT 7.8 g/dl (6.4-8.2)
[2018-11-07 18:36] LABS: EPI CELLS 0.9 /HPF (0-5/HPF); HYALINE CASTS 0 /lpf (0-8); URINE APPEARANCE CLEAR; URINE BACTERIA 5.4 /hpf (NEGATIVE); URINE BILIRUBIN NEGATIVE (NEGATIVE); URINE COLOR YELLOW; URINE GLUCOSE (UA) NEGATIVE (NEGATIVE); URINE KETONE NEGATIVE (NEGATIVE); URINE LEUK ESTERASE TRACE (NEGATIVE); URINE NITRITE NEGATIVE (NEGATIVE); URINE PROTEIN NEGATIVE (NEGATIVE); URINE RBC 72 /hpf (0-4); URINE WBC 1 /hpf (0-5)
--- NOTE | 2018-11-10 00:32 | EKG ---
Test Reason : Blood Pressure : / mmHG Vent. Rate : 057 BPM Atrial Rate : 057 BPM P-R Int : 200 ms QRS Dur : 092 ms QT Int : 484 ms P-R-T Axes : 047 065 044 degrees QTc Int : 471 ms SINUS BRADYCARDIA INCOMPLETE RIGHT BUNDLE BRANCH BLOCK T WAVE ABNORMALITY, CONSIDER ANTERIOR ISCHEMIA PROLONGED QT ABNORMAL ECG WHEN COMPARED WITH ECG OF 04-APR-2018 23:05, VENT. RATE HAS DECREASED BY 39 BPM INCOMPLETE RIGHT BUNDLE BRANCH BLOCK IS NOW PRESENT Confirmed by MD Hayley, Yomi ([id number]) on 11/10/2018 12:32:02 AM Referred By: Confirmed By:Yomi Hardy MD
== END 2018-11-07 19:00 | disposition home or self-care (01) ==
LOC: JER 16:20
PROC: 3E0233Z Introduction of Anti-inflammatory into Muscle, Percutaneous Approach (ICD-10-PCS; principal; 2018-11-07)
DX: R10.9 Unspecified abdominal pain (principal); I10 Essential (primary) hypertension; E07.9 Disorder of thyroid, unspecified
CPT/HCPCS: 36415; 71046-TC-FY; 80053; 81003; 82550; 83690; 84484; 85025; 87086; 93005; 93010; 99282-25